=== PATIENT | male | born 1940 | race Caucasian/White ===

== ENCOUNTER 2017-04-11 05:50 | Inpatient (IN) | payer MEDICARE, MEDICAID ==
[~2017-04-11] VITALS: Ht 182.9 cm; Wt 65.6 kg
[~2017-04-11 05:50] MED LIST: AGGR20025 PO; ALUM5LIQ PO; GABA300 PO; GUAI600 PO; LEVA750T PO; LISI10 PO; NICO21T T-DERMAL; OMEG100037; OXYC1SOL5 PO; RANI150 PO; SIMV20 PO; SUPETAB30 PERC
[2017-04-11] MEDS ORDERED: SODIUM CHLORIDE 0.9% FLUSH 10 ML FLUSH IVF PRN (06:00)
[2017-04-11 06:02] VITALS: BP 135/60; PULSE 67; RESP 20; TEMP 98.1; O2SAT 89
[2017-04-11 06:09] LABS: AUTOMATED NEUTROPHIL # 4.9 TH/MM3 (1.8-7.7); BASOPHIL # 0.1 TH/MM3 (0-0.2); BASOPHIL % 0.9 % (0.0-2.0); EOSINOPHIL # 0.5 TH/MM3 (0-0.4); EOSINOPHIL % 6.5 % (0.0-4.0); HEMO FLAGS DIFF FINAL; LYMPH % 19.9 % (9.0-44.0); LYMPHOCYTE # 1.5 TH/MM3 (1.0-4.8); MEAN CELL VOLUME 92.9 FL (80.0-100.0); MEAN CORPUSCULAR HEMOGLOBIN 30.9 PG (27.0-34.0); MEAN CORPUSCULAR HGB CONC 33.3 % (32.0-36.0); MONO % 6.9 % (0.0-8.0); NEUT % 65.8 % (16.0-70.0); PLATELET COUNT 167 TH/MM3 (150-450); RED BLOOD COUNT 4.09 MIL/MM3 (4.50-5.90); RED CELL DISTRIBUTION WIDTH 14.1 % (11.6-17.2); WHITE BLOOD COUNT 7.5 TH/MM3 (4.0-11.0)
[2017-04-11 06:10] VITALS: O2SAT 91
[2017-04-11 06:11] VITALS: BP 145/74; PULSE 59; RESP 18; O2SAT 92
[2017-04-11 06:18] LABS: APTT (PATIENT) 25.9 SEC (24.3-30.1); PROTHROMBIN TIME - PATIENT 11.4 SEC (9.8-11.6)
[2017-04-11] MEDS ORDERED: AGGR20025 PO (06:27)
[2017-04-11 06:34] LABS: BICARBONATE 34.1 MEQ/L (21.0-32.0); POTASSIUM 4.3 MEQ/L (3.5-5.1)
[2017-04-11] MEDS ORDERED: LORA-474 PO (06:36)
[2017-04-11] MEDS ORDERED: FISHCAP4 PO (06:37)
[2017-04-11] MEDS ORDERED: TAMS5CAP PO (06:37)
--- NOTE | 2017-04-11 06:37 | RADRPT ---
EXAM DATE/TIME: 04/11/2017 06:02 [facility] COMPARISON: No previous studies available for comparison. INDICATIONS : Trauma, fall. RADIATION DOSE: 21.52 CTDIvol (mGy) MEDICAL HISTORY : Cerebrovascular disease. Hypertension. SURGICAL HISTORY : None. ENCOUNTER: Initial ACUITY: 1 day PAIN SCALE: 0/10 LOCATION: neck TECHNIQUE: Volumetric scanning of the cervical spine was performed. Multiplanar reconstructions in the sagittal, coronal and oblique axial planes were performed. Using automated exposure control and adjustment o f the mA and/or kV according to patient size, radiation dose was kept as low as reasonably achievable to obtain optimal diagnostic quality images. DICOM format image data is available electronically f or review and comparison. FINDINGS: VERTEBRAE: Normal vertebral body height. ALIGNMENT: Minimal anterolisthesis C3 on C4. C2-C3: The bony spinal canal is normal in size. No evidence of disc bulge or herniation. The neural forami na are bilaterally patent. C3-C4: The bony spinal canal is normal in size. No evidence of disc bulge or herniation. The neural forami na are bilaterally patent. C4-C5: The bony spinal canal is normal in size. No evidence of disc bulge or herniation. The neural forami na are bilaterally patent. C5-C6: The bony spinal canal is normal in size. No evidence of disc bulge or herniation. The neural forami na are bilaterally patent. C6-C7: The bony spinal canal is normal in size. No evidence of disc bulge or herniation. The neural forami na are bilaterally patent. C7-T1: The bony spinal canal is normal in size. No evidence of disc bulge or herniation. The neural forami na are bilaterally patent. CONCLUSION: 1. Minimal anterolisthesis C3 on C4. 2. No fracture. Chan Delgadillo MD on April 11, 2017 at 6:34 Board Certified Radiologist. This report was verified electronically.
[2017-04-11] MEDS ORDERED: LISI10TA3 PO (06:38)
[2017-04-11] MEDS ORDERED: GABA400C5 PO (06:38)
[2017-04-11] MEDS ORDERED: THERM PO (06:39)
[2017-04-11] MEDS ORDERED: OCUVTAB PO (06:39)
[2017-04-11] MEDS ORDERED: OXYB5TAB10 PO (06:39)
--- NOTE | 2017-04-11 06:39 | PD ---
HPI Chief Complaint: Fall Time Seen by Provider: 05:53 Travel History International Travel<30 days: No Contact w/Intl Traveler<30days: No Traveled to known affect area: No History of Present Illness HPI Patient is a 77-year-old male with a history of strokes in the past presents the emergency department for evaluation after a fall. Patient is on Aggrenox. According to EMS the patient fell out of bed and hit the right side of his for head [facility] According EMS the patient was a little bit more responsive when they first started here and then gradually became more groggy. Is unclear what time he was last seen normal. The patient is a GCS of 14 currently and unable to provide most of his history. Does have a contusion to the right side of his forehead. Mild facial droop on the left. Multiple attempts were made to contact the [facility] without success. PFSH Past Medical History Hx Anticoagulant Therapy: Yes (aggrenox) Depression: Yes Chest Pain: Yes COPD: Yes Cerebrovascular Accident: Yes (CVA) Diminished Hearing: No Gastrointestinal Disorders: Yes (SMALL BOWEL OBSTRUCTION) GERD: Yes Hypertension: Yes Psychiatric: Yes Tetanus Vaccination: Unknown Influenza Vaccination: No Past Surgical History Abdominal Surgery: Yes (ULCER SURGERY) Other Surgery: Yes Social History Alcohol Use: No Tobacco Use: Yes (10 CIG DAY) Substance Use: No Allergies-Medications (Allergen,Severity, Reaction): Coded Allergies: No Known Allergies (Verified , 09/20/16) Reported Meds & Prescriptions Reported Meds & Active Scripts Active Reported Vitamin D3 (Cholecalciferol) 5,000 Unit Cap 5,000 Units PO DAILY Simvastatin 20 Mg Tab 20 Mg PO DAILY Ranitidine (Ranitidine HCl) 150 Mg Cap 75 Mg PO BID Percocet (Oxycodone-Acetaminophen) 5-325 mg Tab 1 Tab PO Q6H PRN Ditropan (Oxybutynin Chloride) 5 Mg Tab 5 Mg PO Q12HR Ocuvite (Multiple Vitamins W/ Minerals) 1 Tab 1 Tab PO DAILY Thera M Plus (Multivitamins/Minerals Therapeutic) 1 Tab 1 Tab PO DAILY Lisinopril 10 Mg Tab 10 Mg PO DAILY Gabapentin 400 Mg Cap 400 Cap PO HS Flomax (Tamsulosin HCl) 0.4 Mg Cap 0.4 Mg PO HS Fish Oil + D3 (Fish Oil-Cholecalciferol) 1,200-1,000 Mg-Unit Cap 1 Cap PO DAILY Ativan (Lorazepam) 1 Mg Tab 1 Mg PO Q4H PRN Aggrenox (Dipyridamole/Aspirin) 200-25 Mg Cap 1 Cap PO BID Review of Systems ROS Limitations: Altered Mental Status Physical Exam Narrative GENERAL: Well-developed well-nourished no apparent distress. SKIN: Contusion to the right forehead. No other bruises or lacerations seen on his person. HEAD: No liao signs no raccoons eyes. Normocephalic. EYES: Pupils equal and round and reactive to light.. No scleral icterus. No injection or drainage. Favors a right sided gaze. Very reluctant to follow extraocular movements. ENT: No nasal bleeding or discharge. Mucous membranes pink and moist. NECK: Trachea midline. No JVD. CARDIOVASCULAR: Regular rate and rhythm. No murmur appreciated. RESPIRATORY: No accessory muscle use. Clear to auscultation. Breath sounds equal bilaterally. GASTROINTESTINAL: Abdomen soft, non-tender, nondistended. Hepatic and splenic margins not palpable. MUSCULOSKELETAL: No obvious deformities. No clubbing. No cyanosis. No edema. NEUROLOGICAL: Awake and alert. There is a very subtle asymmetry to the face with a left sided facial droop. Patient is able to smile intensely and his smile is even. As above he does favor a slight right-sided gaze. Otherwise his cranial nerves are intact. PSYCHIATRIC: Alert and awake. Confused. Data Data Last Documented VS Vital Signs Date Time Temp Pulse Resp B/P Pulse Ox O2 Delivery O2 Flow Rate FiO2 04/11/17 06:11 59 18 145/74 92 Nasal Cannula 4 04/11/17 06:[address] Brain W/O Iv Contrast(Rout) (04/11/17 ) Ct Cerv Spine W/O Contrast (04/11/17 ) Electrocardiogram (04/11/17 05:53) Basic Metabolic Panel (Bmp) (04/11/17 05:53) Complete Blood Count With Diff (04/11/17 05:53) Magnesium (Mg) (04/11/17 05:53) Prothrombin Time / Inr (Pt) (04/11/17 05:53) Act Partial Throm Time (Ptt) (04/11/17 05:53) Ecg Monitoring (04/11/17 05:53) Iv Access Insert/Monitor (04/11/17 05:53) Oximetry (04/11/17 05:53) Oxygen Administration (04/11/17 05:53) Sodium Chloride 0.9% Flush (Ns Flush) (04/11/17 06:00) Admit Order (Ed Use Only) (04/11/17 ) Labs Laboratory Tests Test 04/11/17 05:58 White Blood Count 7.5 TH/MM3 Red Blood Count 4.09 MIL/MM3 Hemoglobin 12.7 GM/DL Hematocrit 38.0 % Mean Corpuscular Volume 92.9 FL Mean Corpuscular Hemoglobin 30.9 PG Mean Corpuscular Hemoglobin 33.3 % Concent Red Cell Distribution Width 14.1 % Platelet Count 167 TH/MM3 Mean Platelet Volume 8.4 FL Neutrophils (%) (Auto) 65.8 % Lymphocytes (%) (Auto) 19.9 % Monocytes (%) (Auto) 6.9 % Eosinophils (%) (Auto) 6.5 % Basophils (%) (Auto) 0.9 % Neutrophils # (Auto) 4.9 TH/MM3 Lymphocytes # (Auto) 1.5 TH/MM3 Monocytes # (Auto) 0.5 TH/MM3 Eosinophils # (Auto) 0.5 TH/MM3 Basophils # (Auto) 0.1 TH/MM3 CBC Comment DIFF FINAL Differential Comment Prothrombin Time 11.4 SEC Prothromb Time International 1.0 RATIO Ratio Activated Partial 25.9 SEC Thromboplast Time Sodium Level 140 MEQ/L Potassium Level 4.3 MEQ/L Chloride Level 102 MEQ/L Carbon Dioxide Level 34.1 MEQ/L Anion Gap 4 MEQ/L Blood Urea Nitrogen 32 MG/DL Creatinine 1.47 MG/DL Estimat Glomerular Filtration 46 ML/MIN Rate Random Glucose 94 MG/DL Calcium Level 9.6 MG/DL Magnesium Level 2.0 MG/DL [facility] Medical Decision Making Medical Screen Exam Complete: Yes Emergency Medical Condition: Yes Interpretation(s) EKG shows normal sinus rhythm normal axis and normal R-wave progression. No concerning ST segment changes. Intervals within normal limits. This is a normal EKG. Differential Diagnosis Traumatic brain injury, intracranial hematoma, TIA, stroke, altered mental status. Narrative Course Patient was discussed with Dr. Christie who is on-call for neurology. I expressed my concerns I do not have a definitive timeline for this patient. EMS states that he is gradually worsening but they state that he has had a facial droop since they initially assessed him. It is possible this is baseline mental status. Review of her records he has not been here for neurologic complaint in the past and this finding has not been documented in the past. The patient was moved hastily to the CAT scanner where a non-con CT was reviewed by me and shows no obvious intracranial hematoma. Official reads are pending at this time. I'll be above was discussed with Dr. Christie who recommends calling the [facility] to possibly clarify the timeline, I have attempted multiple times to call [facility] and there is no voicemail on the phone continues to ring. Unfortunately there is no one at the bedside who can cooperate different timeline. It is possible that the patient awoke after having a stroke in his sleep and now has E symptoms and that is why he fell, it is possible the trauma has caused him to have a neurologic dysfunction, it is also possible that this is his baseline neurologic status. Baseline labs to been ordered. Last [address] 04/11/17 0000 Signed Impressions: Service Date/Time: April 06:02 - CONCLUSION: 1. Old infarcts. 2. No acute intracranial abnormality. Chan Delgadillo MD Cervical Spine CT 04/11/17 0000 Signed Impressions: Service Date/Time: , April 11, 2017 06:02 - CONCLUSION: 1. Minimal anterolisthesis C3 on C4. 2. No fracture. Chan Delgadillo MD Patient incidentally did have some mild hypoxia in the emergency department, he is normally [facility] 2 L [facility] the [facility], is placed on 4 L oxygen sat 92 %. Diagnosis Primary Impression: Closed head injury Additional Impressions: TIA (transient ischemic attack) Hypoxia Admitting Information Admitting Physician Requests: Observation Condition: Stable Joe Rapp MD Apr 11, 2017 06:39
--- NOTE | 2017-04-11 06:39 | RADRPT ---
EXAM DATE/TIME: 04/11/2017 06:02 [facility] COMPARISON: CT BRAIN W/O CONTRAST, September 20, 2016, 8:46. INDICATIONS : Altered mental status and slurred speech post fall. Abrasion to right forehead. RADIATION DOSE: 38.21 CTDIvol (mGy) MEDICAL HISTORY : Cerebrovascular disease. Hypertension. SURGICAL HISTORY : None. ENCOUNTER: Initial ACUITY: 1 day PAIN SCALE: 0/10 LOCATION: cranial TECHNIQUE: Multiple contiguous axial images were obtained of the head. Using automated exposure control and adj ustment of the mA and/or kV according to patient size, radiation dose was kept as low as reasonably a chievable to obtain optimal diagnostic quality images. DICOM format image data is available electro nically for review and comparison. FINDINGS: CEREBRUM: Remote infarcts in the left cerebellum and both occipital lobes. Lacunar infarct in the left thalamus also seen. The ventricles are normal for age. No evidence of midline shift, mass lesion, hemorrhage or acute infarction. No extra-axial fluid collections are seen. POSTERIOR FOSSA: The cerebellum and brainstem are intact. The 4th ventricle is midline. The cerebellopontine angle i s unremarkable. EXTRACRANIAL: The visualized portion of the orbits is intact. SKULL: The calvaria is intact. No evidence of skull fracture. CONCLUSION: 1. Old infarcts. 2. No acute intracranial abnormality. Chan Delgadillo MD on April 11, 2017 at 6:36 Board Certified Radiologist. This report was verified electronically.
[2017-04-11] MEDS ORDERED: RANI150C PO (06:40)
[2017-04-11] MEDS ORDERED: PERC5TAB12 PO (06:40)
[2017-04-11] MEDS ORDERED: SIMV20TA PO (06:41)
[2017-04-11] MEDS ORDERED: CHOL5000 PO (06:41)
[2017-04-11] MEDS ORDERED: GLUCAGON 1 MG/ML VIAL OTHER PRN (07:30)
[2017-04-11] MEDS ORDERED: DEXTROSE 50% IN WATER 50 ML VIAL(D50) IV PUSH PRN (07:30)
[2017-04-11] MEDS ORDERED: SODIUM CHLORIDE 0.9% FLUSH 5 ML FLUSH IV FLUSH PRN (07:30)
[2017-04-11] MEDS ORDERED: SODIUM CHLOR 0.9% 1000 ML INJ 1,000 ML IV SCH (08:00)
[2017-04-11 08:02] LABS: BLOOD GAS BASE EXCESS 7.9 mmol/L (-2-2); BLOOD GAS CARBOXYHEMOGLOBIN 8.1 % (0-4); BLOOD GAS HCO3 33 mmol/L (22-26); BLOOD GAS METHEMOGLOBIN 0.7 % (0-2); BLOOD GAS O2 HGB SATURATION 81 % (90-100); BLOOD GAS OXYGEN CONTENT 14.4 Vol % (12.0-20.0); BLOOD GAS PCO2 58 mmHg (38-42); BLOOD GAS PO2 52 mmHG (61-120); BLOOD GAS TOTAL HGB 12.6 G/DL (12.0-16.0); TEMP CORR TO 98.6
[2017-04-11 08:03] LABS: CRITICAL VALUE YES; DRAW SITE RT RADIAL; LITER FLOW 4 L/M; NUMBER OF ARTERIAL PUNCTURES 1; OXYGEN DEVICE NASAL CANNULA; STAT YES; ULNAR PULSE Y
--- NOTE | 2017-04-11 08:33 | MB ---
cc: GOLDEN MUKHERJEE M.D. DATE OF CONSULTATION: 04/11/2017 HISTORY OF PRESENT ILLNESS The patient lives at [facility] on the [address], with a history of depression, atypical chest pain, COPD, stroke, small bowel obstruction, hypertension, chronic pain, GERD. He takes Aggrenox. He fell out of bed this morning, hit his head on the right oxygen concentrator at the residential, initially more responsive then became groggy, contusion on the right forehead, thought to have a mild left facial droop, eyes deviated to the right. I was called by the ER. They called back to the residential but nobody would answer the phone. He was evidently seen last the night prior, so not a good TPA candidate. Nevertheless, his symptoms have improved, initially was not talking but now talking quite well. He does tell me he has a history of stroke and vision problems. He also has macular degeneration. REVIEW OF SYSTEMS He denied any hypertension, diabetes, hypercholesterolemia, MD, atrial fibrillation, Coumadin, renal, hepatic or pulmonary disease, thyroid disease, lupus, ulcer, cancer, seizure. SOCIAL HISTORY He is a smoker, not a drinker, lives at the residential. FAMILY HISTORY Negative for cancer, seizure, stroke. MEDICATIONS At the residential: 1. Simvastatin. 2. Vitamin D. 3. Ranitidine. 4. Percocet. 5. Ditropan. 6. Ocuvite. 7. Multivitamin. 8. Lisinopril. 9. Gabapentin 400 at bedtime. 10. Flomax. 11. Fish oil. 12. Ativan 1 mg q.4 hours p.r.n. 13. Aggrenox. PHYSICAL EXAMINATION VITAL SIGNS: On exam he has been sinus rhythm. 145/74, 18, 59. NECK: There were no carotid bruits. HEART: Regular rhythm. I do not detect a murmur. Pupils are equal. He appears to have a left homonymous hemianopsia. He does refer a right gaze preference but he can go to the left. Face is symmetric at this time. Tongue was midline. He had some weakness about a 4+ to 5-/5 strength in the left upper extremity, normal strength in bilateral lower extremities and right upper extremity. Toes downgoing bilaterally. DTRs are trace. He felt discomfort throughout. He is awake and alert. He thought it was March 2016. He knows he lives in the [facility]. His speech is fluent. He is not aphasic. LABORATORY DATA CBC is essentially normal. Basic metabolic profile creatinine 1.47, otherwise essentially normal. GFR is 46. In the past he has had significant hypoxia with blood gases. IMAGING STUDIES He had a cervical spine CAT scan this morning, showed no fracture, minimal anterolisthesis C3 on 4. He had a CAT scan of the brain that showed old strokes this morning only compared to September 2016. Nothing new was noted. Review of the films, there is a large left occipital infarct and a large right occipital infarct and also a fairly large-size left occipital infarct, third ventricle is somewhat prominent as are the other ventricles, there are possible smaller infarcts cortically, hard to say. IMPRESSION Possible seizure this morning, it is unclear. Will check an EEG. Check an MRI of the brain, MRA [id number]. Looks like he probably had top of the basilar infarct in the past. Check an MRA of the neck and [id number], echocardiogram. Considering his strokes consider Coumadin. Check a Holter on him also, some additional blood work and ABG. For now it is okay to continue him on his Aggrenox. MD MARY Arrieta/AMADOR /7:46 AM /8:08 AM
[2017-04-11] MEDS ORDERED: DIPYRIDAMOLE/ASPIRIN 200 MG/25 MG CAP PO SCH (09:00)
[2017-04-11] MEDS: SODIUM CHLORIDE 0.9% FLUSH 5 ML FLUSH IV FLUSH SCH ×2 (09:48→21:00)
[2017-04-11] MEDS: FAMOTIDINE 20 MG TAB PO SCH ×2 (09:49→21:28)
[2017-04-11] MEDS: DIPYRIDAMOLE/ASPIRIN 200 MG/25 MG CAP PO SCH ×2 (09:49→21:28)
[2017-04-11] MEDS: PRAVASTATIN SOD 40 MG TAB PO SCH (09:49)
[2017-04-11] MEDS ORDERED: GADODIAMIDE PF 287 MG/ML 20 ML VIAL (for RAD MRI) IV ONE (11:00)
[2017-04-11] MEDS: INSULIN ASPART SUPPLEMENTAL SCALE SQ SCH ×3 (11:09→21:00)
[2017-04-11 11:28] LABS: FREE T4 1.04 NG/DL (0.76-1.46)
[2017-04-11 11:29] LABS: HEMOGLOBIN A1a 0.8 %; HEMOGLOBIN A1b 2.1 %; HEMOGLOBIN Ao 83.2 %; HEMOGLOBIN LA1C 2.5 %; HEMOGLOBIN P3 6.2 %
[2017-04-11 12:29] VITALS: BP 158/72; PULSE 60; RESP 18; TEMP 98.2; O2SAT 95
--- NOTE | 2017-04-11 13:02 | RADRPT ---
EXAM DATE/TIME: 04/11/2017 08:52 [facility] COMPARISON: No previous studies available for comparison. INDICATIONS : Patient fell out of bed and hit the right side of his for head. MEDICAL HISTORY : Hypertension. Gastroesophageal reflux disease. Chronic obstructive pulmonary disease. CVA SURGICAL HISTORY : Umbilical hernia repair. ENCOUNTER: Initial ACUITY: 1 day PAIN SCORE: 0/10 LOCATION: cranial Please note a normal MRA of the brain does not entirely exclude the possibility of a small aneurysm, nor the possibility of distal intracranial vessel disease. TECHNIQUE: 3D time of flight MRA was performed. Source images, multiplanar STS MIP, and 3D volume MIP reconstru ctions were reviewed. FINDINGS: Anterior circulation: There is excellent visualization of the major intracranial arteries out to the second-order branch ve ssels. There is no evidence for aneurysm, vessel truncation or stenosis, and no evidence for vascula r malformation. Posterior circulation: The distal right vertebral artery is not visualized. There is a very small caliber left vertebral art heena. The basilar artery is diffusely small in caliber. Posterior communicating arteries are patent bi laterally. No vessel truncation or aneurysm or vascular malformation. Visualized portions of the brain parenchyma demonstrate moderate diffuse cerebral atrophy with enceph alomalacic defects in the left cerebellum and occipital lobes bilaterally. CONCLUSION: 1. No evidence for large vessel occlusion, aneurysm, or vascular malformation involving the anterior situation. 2. Apparent occlusion of the distal right vertebral artery with small caliber left vertebral and smal l caliber basilar artery. The posterior communicating arteries are patent bilaterally. There is evide nce for prior left cerebellar infarct indicating chronicity. Tutu Sharma MD on April 11, 2017 at 12:51 Board Certified Radiologist. This report was verified electronically.
--- NOTE | 2017-04-11 13:15 | HHI.HP ---
HPI Service [facility] Primary Care Physician No Primary Care Physician Admission Diagnosis TIA vs Closed head injury. Diagnoses: (1) TIA (transient ischemic attack) (2) Closed head injury (3) Hypoxia Chief Complaint: Neuro deficits Travel History International Travel<30 Days: No Contact w/Intl Traveler <30 Da: No Traveled to Known Affected Are: No History of Present Illness 77-year-old male with prior history of CVA, hyperlipidemia was brought to the ED from a local nursing facility for evaluation of an acute onset of mid left facial droop along with eyes to be related to the right following a fall out of bed this morning as a result of which patient if he sits on the right oxygen concentrator. Her EMR, patient was more responsive then became groggy and was told to have a mid level facial droop along with eyes deviated to the right. He was immediately sent to the ED by EMS, however on arrival patient's symptoms seem to have resolved but neurology was consulted. Again per EMR, a call was placed at patient's nursing facility however no one was able to return phone calls and patient was deemed to be outside of the time zone for TPA therapy. Head CT was negative. During my exam patient appears to be stable. Review of Systems Except as stated in HPI: all other systems reviewed are Neg Past Family Social History Past Medical History Depression COPD CVA by history Diverticular disease Small bowel obstruction history GERD Hypertension Chronic Pain syndrome. Past Surgical History Abdominal surgery Reported Medications Vitamin D3 (Cholecalciferol) 5,000 Unit Cap 5,000 Units PO DAILY Simvastatin 20 Mg Tab 20 Mg PO DAILY Ranitidine (Ranitidine HCl) 150 Mg Cap 75 Mg PO BID Percocet (Oxycodone-Acetaminophen) 5-325 mg Tab 1 Tab PO Q6H PRN Ditropan (Oxybutynin Chloride) 5 Mg Tab 5 Mg PO Q12HR Ocuvite (Multiple Vitamins W/ Minerals) 1 Tab 1 Tab PO DAILY Thera M Plus (Multivitamins/Minerals Therapeutic) 1 Tab 1 Tab PO DAILY Lisinopril 10 Mg Tab 10 Mg PO DAILY Gabapentin 400 Mg Cap 400 Cap PO HS Flomax (Tamsulosin HCl) 0.4 Mg Cap 0.4 Mg PO HS Fish Oil + D3 (Fish Oil-Cholecalciferol) 1,200-1,000 Mg-Unit Cap 1 Cap PO DAILY Ativan (Lorazepam) 1 Mg Tab 1 Mg PO Q4H PRN Aggrenox (Dipyridamole/Aspirin) 200-25 Mg Cap 1 Cap PO BID Allergies: Coded Allergies: No Known Allergies (Verified , 09/20/16) Family History Not relevant for this case secondary to patient's age Social History Alcohol Use: No Tobacco Use: Yes (10 CIG DAY) Substance Use: No Physical Exam Vital Signs Vital Signs Date Time Temp Pulse Resp B/P Pulse Ox O2 Delivery O2 Flow Rate FiO2 04/11/17 12:29 98.2 60 18 158/72 95 04/11/17 06:11 59 18 145/74 92 Nasal Cannula 4 04/11/17 06:10 91 Nasal Cannula 4 04/11/17 06:10 91 Nasal Cannula 4 04/11/17 06:02 98.1 67 20 135/60 89 Physical Exam GENERAL: This is a well-nourished, well-developed patient, in no apparent distress. SKIN: No rashes, ecchymoses or lesions. Cool and dry. HEAD: Atraumatic. Normocephalic. No temporal or scalp tenderness. EYES: Pupils equal round and reactive. Extraocular motions intact. No scleral icterus. No injection or drainage. ENT: Nose without bleeding, purulent drainage or septal hematoma. Throat without erythema, tonsillar hypertrophy or exudate. Uvula midline. Airway patent. NECK: Trachea midline. No JVD or lymphadenopathy. Supple, nontender, no meningeal signs. CARDIOVASCULAR: Regular rate and rhythm without murmurs, gallops, or rubs. RESPIRATORY: Clear to auscultation. Breath sounds equal bilaterally. No wheezes , rales, or rhonchi. GASTROINTESTINAL: Abdomen soft, non-tender, nondistended. No hepato-splenomegaly , or palpable masses. No guarding. MUSCULOSKELETAL: Extremities without clubbing, cyanosis, or edema. No joint tenderness, effusion, or edema noted. No calf tenderness. Negative Homans sign bilaterally. NEUROLOGICAL: Awake and alert. Cranial nerves II through XII intact. Motor and sensory grossly within normal limits. Five out of 5 muscle strength in all muscle groups. Normal speech. Laboratory Laboratory Tests Test 04/11/17 04/11/17 04/11/17 04/11/17 05:58 07:55 10:18 10:23 White Blood Count 7.5 Red Blood Count 4.09 Hemoglobin 12.7 Hematocrit 38.0 Mean Corpuscular Volume 92.9 Mean Corpuscular Hemoglobin 30.9 Mean Corpuscular Hemoglobin 33.3 Concent Red Cell Distribution Width 14.1 Platelet Count 167 Mean Platelet Volume 8.4 Neutrophils (%) (Auto) 65.8 Lymphocytes (%) (Auto) 19.9 Monocytes (%) (Auto) 6.9 Eosinophils (%) (Auto) 6.5 Basophils (%) (Auto) 0.9 Neutrophils # (Auto) 4.9 Lymphocytes # (Auto) 1.5 Monocytes # (Auto) 0.5 Eosinophils # (Auto) 0.5 Basophils # (Auto) 0.1 CBC Comment DIFF FINAL Differential Comment Prothrombin Time 11.4 Prothromb Time International 1.0 Ratio Activated Partial 25.9 Thromboplast Time Sodium Level 140 Potassium Level 4.3 Chloride Level 102 Carbon Dioxide Level 34.1 Anion Gap 4 Blood Urea Nitrogen 32 Creatinine 1.47 Estimat Glomerular Filtration 46 Rate Random Glucose 94 Hemoglobin A1c 6.1 Calcium Level 9.6 Magnesium Level 2.0 Blood Gas Puncture Site RT RADIAL Blood Gas Patient Temperature 98.6 Blood Gas HCO3 33 Blood Gas Base Excess 7.9 Blood Gas Oxygen Saturation 81 Arterial Blood pH 7.38 Arterial Blood Partial 58 Pressure CO2 Arterial Blood Partial 52 Pressure O2 Arterial Blood Oxygen Content 14.4 Arterial Blood 8.1 Carboxyhemoglobin Arterial Blood Methemoglobin 0.7 Blood Gas Hemoglobin 12.6 Oxygen Delivery Device NASAL CANNULA Blood Gas Liter Flow 4 Erythrocyte Sedimentation Rate 18 Aspartate Amino Transf 12 (AST/SGOT) Alanine Aminotransferase 12 (ALT/SGPT) Total Creatine Kinase 85 Troponin I 0.08 Vitamin B12 Level 382 Free Thyroxine 1.04 Thyroid Stimulating Hormone 0.738 3rd Gen Result Diagram: 04/11/17 0558 04/11/17 0558 Imaging Last Impressions Head Magnetic Resonance Angiography 04/11/17 0000 Signed Impressions: Service Date/Time: April 08:52 - CONCLUSION: 1. No evidence for large vessel occlusion, aneurysm, or vascular malformation involving the anterior situation. 2. Apparent occlusion of the distal right vertebral artery with small caliber left vertebral and small caliber basilar artery. The posterior communicating arteries are patent bilaterally. There is evidence for prior left cerebellar infarct indicating chronicity. Tutu Sharma MD Head CT 04/11/17 0000 Signed Impressions: Service Date/Time: , April 11, 2017 06:02 - CONCLUSION: 1. Old infarcts. 2. No acute intracranial abnormality. Chan Delgadillo MD Cervical Spine CT 04/11/17 0000 Signed Impressions: Service Date/Time: , April 11, 2017 06:02 - CONCLUSION: 1. Minimal anterolisthesis C3 on C4. 2. No fracture. Chan Delgadillo MD Assessment and Plan Problem List: (1) TIA (transient ischemic attack) ICD Code: G45.9 Status: Acute (2) Closed head injury ICD Code: S09.90XA Status: Acute Assessment and Plan 77-year-old man with Closed head injury Head CT noted a review by me with no acute finding Transient ischemic attack -No TPA therapy initiated as patient's symptoms resolved -Continue with Aggrenox -Start statin therapy -NIHSS, Neuro checks, Monitor on telemetry -PT/OT/ST evaluations, -allow permissive HTN, IV Vasotec and IV labetalol if SBP >220 -Check lipid profile and HgbA1c -Check carotid U/S -Head CT 04/11/17 with evidence of old infarcts Check brain MRI/MRA -Check echocardiogram and place Holter monitoring -Neurology consultation pending -Consider EEG DVT prophylaxis Bilateral SCDs Code Status Full code Discussed Condition With Patient, ED physician Chan Suero MD Apr 11, 2017 13:15
--- NOTE | 2017-04-11 13:40 | RADRPT ---
EXAM DATE/TIME: 04/11/2017 08:52 [facility] COMPARISON: CT BRAIN W/O CONTRAST, April 11, 2017, 6:02. INDICATIONS : Patient fell out of bed and hit the right side of his for head. CONTRAST: 20 cc Omniscan (gadodiamide) IV MEDICAL HISTORY : Hypertension. Gastroesophageal reflux disease. Chronic obstructive pulmonary disease. CVA SURGICAL HISTORY : Umbilical hernia repair. ENCOUNTER: Initial ACUITY: 1 day PAIN SCORE: 0/10 LOCATION: cranial TECHNIQUE: Multiplanar, multisequence MRI of the brain was performed both prior to and following the administrat ion of paramagnetic contrast. FINDINGS: CEREBRUM: There is bilateral cortical atrophy. There is evidence of previous old infarcts involving the occipit al lobes bilaterally, right greater than left. There is an old infarct involving the left found this. There is a tiny old infarct in the left insula. The ventricles are normal in size for patient's age. No mass effect or midline shift is seen. No definite acute intracranial hemorrhage is demonstrated. No acute infarction is demonstrated. WHITE MATTER: Chronic white matter changes are noted bilaterally. POSTERIOR FOSSA: There is evidence of an old infarct involving the left cerebellar hemisphere. The fourth ventricle is normal in size and midline in position. The midbrain is grossly unremarkable. DIFFUSION IMAGING: No focal areas of restricted diffusion are seen. No evidence of acute infarction. EXTRACRANIAL: The visualized portions of the orbits and paranasal sinuses are unremarkable. POST-CONTRAST: No abnormal areas of parenchymal or dural enhancement. No evidence of blood-brain barrier breakdown. CONCLUSION: 1. Diffuse bilateral cortical atrophy and chronic white matter changes. 2. Multiple areas of old infarction are demonstrated and described above. These findings are stable c ompared to the prior CT scan of the brain. Brad Alston MD on April 11, 2017 at 13:33 Board Certified Radiologist. This report was verified electronically.
--- NOTE | 2017-04-11 14:07 | RADRPT ---
EXAM DATE/TIME: 04/11/2017 08:52 [facility] COMPARISON: MRA BRAIN W/O CONTRAST, April 11, 2017, 8:52. INDICATIONS : Patient fell out of bed and hit the right side of his for head. CONTRAST: 20 cc Omniscan (gadodiamide) IV MEDICAL HISTORY : Hypertension. Gastroesophageal reflux disease. Chronic obstructive pulmonary disease. CVA SURGICAL HISTORY : Umbilical hernia repair. ENCOUNTER: Initial ACUITY: 1 day PAIN SCORE: 0/10 LOCATION: cranial Percent stenosis is calculated using the diameter of the stenotic region over the diameter of the nor mal distal internal carotid artery. TECHNIQUE: Bolus infused MRA of the extracranial circulation was performed using a neurovascular coil. Post pro cessing was performed including rotating subvolume maximum intensity projections of each carotid alex ry, rotating full volume maximum intensity projections of both carotid arteries, sagittal and coronal sliding thin slab reformations of each carotid artery, and left oblique sliding thin slab reformatio n through the aortic arch to include the origin of the arch branch vessels. FINDINGS: AORTIC ARCH: There is a linear shadow paralleling the vessel lumen of the proximal left common carotid artery with appearance somewhat worrisome for intimal dissection. This could certainly be artifactual as well. T his does not continue into the vessel beyond the low neck region. There is mild ostial stenosis invol ving the left subclavian artery origin. Classical three-vessel anatomy is present. RIGHT CAROTID: Is mild atherosclerotic plaquing with shallow plaque ulceration at the right carotid bifurcation. Min imal associated stenotic narrowing at the ICA origin. Beyond this proximal disease, the right ICA is widely patent to the skull base. LEFT CAROTID: Mild eccentric plaquing involving the proximal left ICA without significant associated stenotic narro wing. VERTEBRALS: The right vertebral artery is relatively small with suspected proximal stenosis. The left vertebral a rtery is small and discontinuous. CONCLUSION: Appearance worrisome for a possible intimal dissection involving the proximal left common carotid art heena. Mild disease without significant stenosis at the carotid bifurcations bilaterally. Tenuous vertebral circulation as described. Further evaluation with CTA examination of the arch and carotids would be suggested. Murray Perrin MD on April 11, 2017 at 13:55 Board Certified Radiologist. This report was verified electronically.
[2017-04-11 14:37] LABS: BACTERIA, URINE RARE /hpf; BLOOD, URINE NEG (NEG); COMMENT (UR) CULT NOT INDICATED; CULTURE IF INDICATED CULT NOT INDICATED; GLUCOSE,URINE NEG (NEG); KETONE, URINE NEG (NEG); NITRITE,URINE NEG (NEG); PH, URINE 7.5 (5.0-8.5); URINE COLOR YELLOW (YELLW/STRAW)
[2017-04-11 15:29] VITALS: BP 147/71; PULSE 55; RESP 16; TEMP 97.6; O2SAT 96
--- NOTE | 2017-04-11 16:25 | MG ---
cc: LESLEY DENTON M.D. Lab No: [id number] Date: 04/11/2017 Age: 77 Sex: M Race: DATE OF : [address] Christie Room E57. Hyperventilation was not done, only photic stimulation. Awake, drowsy, asleep study. CT showed old infarcts. Admitted with a fall out of bed, hit the right side of his head. He has a history of stroke, COPD, hypertension, SBO, depression, on anticoagulation per chart. MEDICATION Current medicines are showing insulin, aspirin, Pravachol. DESCRIPTION OF RECORD There is a background rhythm of 6 Hz, at times between 5 and 6 Hz. EKG is all artifactual, a lot of muscle artifact but overall theta slowing noted. Photic stimulation does elicit a driving response. IMPRESSION Mild background slowing, may be due to sedation versus medication effect. No epileptic activity. Clinical correlation. MD OLIVIA Tao/AMADOR /2:57 PM /4:09 PM
--- NOTE | 2017-04-11 18:13 | EKG ---
Date Performed: 04/11/2017 Time Performed: 06:13:18 PTAGE: 77 years EKG: Sinus rhythm NORMAL ECG PREVIOUS TRACING 06/09/2015 @ 09.03 Compared to prior tracing no significant change DOCTOR: Natalie Morgan Interpretating Date/Time 04/11/2017 18:11:22
[2017-04-11 20:04] VITALS: BP 175/77; PULSE 56; RESP 18; TEMP 97.8; O2SAT 98
[2017-04-11] MEDS: SODIUM CHLOR 0.9% 1000 ML INJ 1,000 ML IV SCH (21:29)
[2017-04-12] VITALS (11 sets, daily range): BP systolic 145–176; BP diastolic 70–85; PULSE 61–82; RESP 15–18; TEMP 97.8–98.8; O2SAT 91–95
[2017-04-12] MEDS: INSULIN ASPART SUPPLEMENTAL SCALE SQ SCH ×4 (06:12→21:00)
[2017-04-12 07:14] LABS: HDL CHOLESTEROL 30.4 MG/DL (40.0-60.0); LDL CHOLESTEROL 68 MG/DL (0-99)
--- NOTE | 2017-04-12 07:14 | HHI.PR ---
Subjective Remarks sr Objective Vital Signs Date Time Temp Pulse Resp B/P Pulse Ox O2 Delivery O2 Flow Rate FiO2 04/12/17 06:03 98.2 61 18 170/76 95 04/12/17 04:48 94 04/12/17 04:21 98.8 71 18 167/75 91 04/12/17 04:03 64 04/12/17 02:02 62 04/12/17 00:24 98.4 61 18 148/70 91 04/11/17 20:04 97.8 56 18 175/77 98 04/11/17 15:29 97.6 55 16 147/71 96 04/11/17 12:29 98.2 60 18 158/72 95 I/O 04/11/17 04/11/17 04/11/17 04/12/17 04/12/17 04/12/17 07:00 15:00 23:00 07:00 15:00 23:00 Intake Total 240 ml Balance 240 ml Intake Oral 240 ml # Voids 1 Result Diagram: 04/11/17 0558 04/11/17 0558 Objective Remarks awkens and follows some commands just out of sleep prefers r gaze and can only see shadows he says moves all four ext ok 2015 Assessment and Plan Assessment and Plan imp eeg neg no new cva bilat old occipital and cbllr cva no new cva creat 1.47 yes mra cow pcomms strong bilat vb small throughout echo and holter pend plan is to check cta neck for unlikely dissection if creat looks better this am after ivf overnoc he is on statin if echo looks bad could consider coumadin o/w if nl can dc on agx if cta ok if ldl up adjust statin dose i can fu o/p the holter i think he does better when awake awhile adn worse when just wakes up Marv Christie MD Apr 12, 2017 07:14
[2017-04-12 08:04] LABS: BICARBONATE 30.8 MEQ/L (21.0-32.0); POTASSIUM 4.3 MEQ/L (3.5-5.1)
[2017-04-12] MEDS: SODIUM CHLORIDE 0.9% FLUSH 5 ML FLUSH IV FLUSH SCH ×2 (08:30→21:00)
[2017-04-12] MEDS: DIPYRIDAMOLE/ASPIRIN 200 MG/25 MG CAP PO SCH ×2 (08:32→21:25)
[2017-04-12] MEDS: PRAVASTATIN SOD 40 MG TAB PO SCH (08:32)
[2017-04-12] MEDS: FAMOTIDINE 20 MG TAB PO SCH ×2 (08:33→21:25)
[2017-04-12] MEDS: SODIUM CHLOR 0.9% 1000 ML INJ 1,000 ML IV SCH (10:20)
[2017-04-12 10:23] LABS: RAPID PLASMA REAGIN SCREEN NON-REACTIVE (NON-REACTVE)
--- NOTE | 2017-04-12 10:26 | HHI.PR ---
Subjective Remarks Follow up for TIA. The patient is seen resting in bed, awake, alert, oriented to self and hospital. He has no complaints. Denies any headache, lightheadedness , dizziness, unilateral numbness/weakness, chest pain, palpitations, shortness of breath, or abdominal complaints. Objective Vitals Vital Signs Date Time Temp Pulse Resp B/P Pulse Ox O2 Delivery O2 Flow Rate FiO2 04/12/17 08:41 97.9 63 15 170/75 95 04/12/17 06:03 98.2 61 18 170/76 95 04/12/17 04:48 94 04/12/17 04:21 98.8 71 18 167/75 91 04/12/17 04:03 64 04/12/17 02:02 62 04/12/17 00:24 98.4 61 18 148/70 91 04/11/17 20:04 97.8 56 18 175/77 98 04/11/17 15:29 97.6 55 16 147/71 96 04/11/17 12:29 98.2 60 18 158/72 95 I/O 04/11/17 04/11/17 04/11/17 04/12/17 04/12/17 04/12/17 07:00 15:00 23:00 07:00 15:00 23:00 Intake Total 240 ml Balance 240 ml Intake Oral 240 ml # Voids 1 Result Diagram: 04/11/17 0558 04/12/17 0612 Imaging Last Impressions Neck Magnetic Resonance Angiography 04/11/17 0745 Signed Impressions: Service Date/Time: April 08:52 - CONCLUSION: Appearance worrisome for a possible intimal dissection involving the proximal left common carotid artery. Mild disease without significant stenosis at the carotid bifurcations bilaterally. Tenuous vertebral circulation as described. Further evaluation with CTA examination of the arch and carotids would be suggested. Murray Perrin MD Brain MRI 04/11/17 0745 Signed Impressions: Service Date/Time: April 08:52 - CONCLUSION: 1. Diffuse bilateral cortical atrophy and chronic white matter changes. 2. Multiple areas of old infarction are demonstrated and described above. These findings are stable compared to the prior CT scan of the brain. Brad Alston MD Head Magnetic Resonance Angiography 04/11/17 0000 Signed Impressions: Service Date/Time: April 08:52 - CONCLUSION: 1. No evidence for large vessel occlusion, aneurysm, or vascular malformation involving the anterior situation. 2. Apparent occlusion of the distal right vertebral artery with small caliber left vertebral and small caliber basilar artery. The posterior communicating arteries are patent bilaterally. There is evidence for prior left cerebellar infarct indicating chronicity. Tutu Sharma MD Head CT 04/11/17 0000 Signed Impressions: Service Date/Time: , April 11, 2017 06:02 - CONCLUSION: 1. Old infarcts. 2. No acute intracranial abnormality. Chan Delgadillo MD Cervical Spine CT 04/11/17 0000 Signed Impressions: Service Date/Time: , April 11, 2017 06:02 - CONCLUSION: 1. Minimal anterolisthesis C3 on C4. 2. No fracture. Chan Delgadillo MD Objective Remarks GENERAL: Well-nourished, well-developed elderly male patient in [facility]. SKIN: Warm and dry. No rash. HEENT: Normocephalic. Frontal head contusion. Pupils equal and round. Mucous membranes pink and moist. NECK: Supple. Trachea midline. CARDIOVASCULAR: Regular rate and rhythm. S1, S2 noted. No murmur appreciated. RESPIRATORY: No accessory muscle use. Clear to auscultation. Breath sounds equal bilaterally. GASTROINTESTINAL: Abdomen soft, non-tender, nondistended. Normoactive bowel sounds x4. MUSCULOSKELETAL: No obvious deformities. Extremities without clubbing, cyanosis , or edema. NEUROLOGICAL: Awake and alert. No obvious cranial nerve deficits. Motor grossly within normal limits. 5/5 muscle strength in bilateral upper and lower extremities. Normal speech. PSYCHIATRIC: Appropriate mood and affect; insight and judgment limited. Medications and IVs Current Medications Medications (Trade) Dose Ordered Sig/Paulo Route Start Time Stop Time Status Last Admin (NS Flush) 2 ml BID IV FLUSH 04/11/17 09:00 04/11/17 21:00 (NS Flush) 2 ml UNSCH PRN IV FLUSH 04/11/17 07:30 (NovoLOG SUPPLEMENTAL SCALE) 1 ACHS SQ 04/11/17 11:00 (D50w (Vial) Inj) 50 ml UNSCH PRN IV PUSH 04/11/17 07:30 (Glucagon Inj) 1 mg UNSCH PRN OTHER 04/11/17 07:30 (Aggrenox 200-25 Mg) 1 cap BID PO 04/11/17 09:00 04/12/17 08:32 (Pepcid) 10 mg BID PO 04/11/17 09:00 04/12/17 08:33 Pravastatin Sodium 40 mg 40 mg DAILY PO 04/11/17 09:00 04/12/17 08:32 (NS 1000 ml Inj) 1,000 ml @ 75 mls/hr [id number] IV 04/11/17 21:00 04/11/17 21:29 A/P Problem List: (1) TIA (transient ischemic attack) ICD Code: G45.9 Status: Acute (2) Closed head injury ICD Code: S09.90XA Status: Acute Assessment and Plan 77-year-old male from [facility] with history of CVA, HLD, HTN, COPD, chronic pain, depression, presents after a fall with possible facial droop, concern for TIA/CVA Closed head injury: secondary to fall from bed, reportedly hit head on oxygen tank -Head CT images reviewed, no acute findings Transient ischemic attack: with possible facial droop upon arrival, now resolved. No TPA therapy initiated as patient's symptoms resolved -Continue with Aggrenox and statin -NIHSS, Neuro checks, Monitor on telemetry (although patient repeatedly removed telemetry) -PT/OT/ST evaluations -allow permissive HTN, IV Vasotec and IV labetalol if SBP >220 -Lipid profile wnl and HgbA1c 6.1 -Head CT and Brain MRI images reviewed, evidence of old infarcts, no acute findings -Head MRA shows occlusion of distal right vertebral artery; otherwise unremarkable -Neck MRA shows possible intimal dissection proximal left common carotid artery; recommends neck CTA -Neck CTA ordered -EEG unremarkable -Check echocardiogram -Holter monitoring in place -Neurology consulted, appreciate recommendations, can d/c on aggrenox if echo and CTA neck ok DVT prophylaxis Bilateral SCDs Discharge Planning 0930hrs: Awaiting echo and neck CTA, likely discharge today if unremarkable. 1230hrs: RN reporting multiple episodes of watery diarrhea. Will check for C diff and stool cultures. Hold off on discharge. Also BP elevated, will restart patient's lisinopril. Tamiko Villatoro PA-C Apr 12, 2017 10:26
--- NOTE | 2017-04-12 13:47 | HM ---
Date Performed: 04/11/2017 Time Performed: 15:23:00 HOOKUP DATE: 04/11/17 03:23:00 PM Rachel ANALYSIS START TIME: 04/11/2017 3:28:00 PM ANALYSIS END TIME: 04/12/2017 7:55:50 AM PATIENT AGE: 77 PATIENT HEIGHT PATIENT WEIGHT DRUG LIST PATIENT DIAGNOSIS: TIA VS CLOSED HEAD INJURY TEST NARRATIVE: The patient's average heart rate was 64 BPM. No episodes of tachycardia wer e noted. Heart rates less than 50 BPM were noted 5% of the time. No pauses exceeding 2.0 seconds were noted. 72 ventricular ectopics, which represented < 1% of the total beat count, were noted. The highest ventricular ectopic frequency occurred from 06:00 PM to 07:00 PM Rachel. During this time 9 VE(s) occurred. Ventricular ectopics were observed as 70 isolated beat(s) and as 1 couplet(s). N o runs were noted. 34 supraventricular ectopics, which represented < 1% of the total beat count, were noted. The highest supraventricular ectopic frequency occurred from 08:00 PM to 09:00 PM Rachel. During this time 16 SVE(s) occurred. Multiple episodes of ST depression (defined as -1.0 mm or mo re) were noted in channel 1. The maximum depression of -2.9 mm occurred at 07:19:59 AM Fri. No epi sodes of ST depression (defined as -1.0 mm or more) were noted in channel 2. No episodes of ST depre ssion (defined as -1.0 mm or more) were noted in channel 3. NO DIARY MAINTAINED- PT REMOVED MONITOR- COMBATIVE TEST INTERPRETATION: Holter monitor demonstrates normal Sinus rhythm with rare PVC and rare PAC. Several PACs occurred in triplets and quadruplets. No sustained supraven tricular tachycardia was noted. No symptoms were recorded in the patient's diary. Signed by : Marv Sears
[2017-04-12 15:15] LABS: HEMOGLOBIN A1a 0.8 %; HEMOGLOBIN A1b 2.1 %; HEMOGLOBIN Ao 83.7 %; HEMOGLOBIN LA1C 2.3 %
[2017-04-12 15:51] LABS: ANA SCREEN NEG (NEG)
[2017-04-12] MEDS ORDERED: IOHEXOL 350 MG/ML 10 ML VIAL (for RAD DIAG) IV ONE (16:09)
--- NOTE | 2017-04-12 17:22 | RADRPT ---
EXAM DATE/TIME: 04/12/2017 15:59 [facility] COMPARISON: MRA CAROTIDS W CONTRAST, April 11, 2017, 8:52. INDICATIONS : Evaluate for dissection of left common carotid. IV CONTRAST: 70 cc Omnipaque 350 (iohexol) IV RADIATION DOSE: 28.37 CTDIvol (mGy) MEDICAL HISTORY : Chronic obstructive pulmonary disease. Hypertension. SURGICAL HISTORY : None. ENCOUNTER: Initial ACUITY: 1 day PAIN SCALE: Non-responsive LOCATION: Bilateral neck region. Elevated flow velocities and ICA/CCA ratios have been found to correlate with increased degrees of vessel stenosis, calculated as percentage of diameter relative to a normal segment of distal ICA/CCA. TECHNIQUE: Volumetric scanning was performed using a multirow detector CT scanner. The data was post processed with a variety of visualization algorithms including full-volume maximum intensity projection, multip lanar sliding thin-slab reformation, curved-planar reformation, and surface-rendering techniques. Us ing automated exposure control and adjustment of the mA and/or kV according to patient size, radiatio n dose was kept as low as reasonably achievable to obtain optimal diagnostic quality images. DICOM f ormat image data is available electronically for review and comparison. FINDINGS: Recent MRA examination is findings concerning for possible focal dissection of the proximal left comm on carotid artery. AORTIC ARCH: Standard 3 vessel arch anatomy. Moderate atherosclerotic calcifications in the aortic arch with invol vement of the large vessels. No significant stenosis of the brachiocephalic subclavian arteries. RIGHT CAROTID: Mild calcified plaque occlusion of the right common carotid artery. Scattered calcified plaque withou t significant flow-limiting stenosis in the common carotid artery. Normal configuration of the caroti d bulb with bulky calcified plaque in the bulb extending to the internal carotid origin. Resultant mi ld stenosis. The right internal carotid artery is otherwise patent. LEFT CAROTID: Left common carotid origin is heavily calcified with resultant moderate to severe focal stenosis. No evidence for dissection as questioned. Left common artery is otherwise patent with minimal scattered calcified plaque. There is a normal configuration with bulky calcified plaque extending from the dist al graft to the origin of the internal carotid artery. There is resultant mild to moderate stenosis o f the internal carotid origin. VERTEBRALS: Left vertebral artery appears occluded at the origin. The right vertebral artery is very small in candelaria iber with with likely tandem moderate stenoses at the origin and proximally. Fluid does extend from t he right vertebral artery to the basilar artery which is small in caliber. There are bilateral patent posterior communicating arteries. Visualized portions of the brain parenchyma demonstrates diffuse cerebral volume loss and evidence of encephalomalacic defect in the left cerebellar hemisphere. No significant soft tissue mass in the ce rvical soft tissues. Thyroid appears unremarkable by CT. Visualized lung apices demonstrate severe ce ntrilobular emphysema. Proximal esophagus is dilated and contains material. CONCLUSION: 1. Bulky calcified plaque at the origin of the left common carotid artery with resultant focal modera te to severe stenosis. No evidence for dissection as questioned. 2. Tenuous vertebral artery circulation with occluded left vertebral artery just beyond the origin an d very small caliber right vertebral artery with likely tandem moderate stenoses at the origin and pr oximally. There is continuous flow from the right vertebral artery to the basilar artery with patent bilateral posterior commuting arteries. 3. Approximately 50% stenosis of the proximal left internal carotid artery secondary to bulky calcifi ed plaque. 4. No hemodynamically significant stenosis in the right carotid arteries. 5. Dilated proximal esophagus containing material. Clinical correlation is recommended. 6. Severe centrilobular emphysema in the lung apices. Tutu Sharma MD on April 12, 2017 at 17:00 Board Certified Radiologist. This report was verified electronically.
[2017-04-12] MEDS ORDERED: LISINOPRIL 10 MG TAB PO ONE (18:00)
--- NOTE | 2017-04-12 18:29 | ECHRPT ---
Indication: cva/tia CONCLUSIONS Mildly dilated left ventricle. The left ventricular systolic function is normal with an estimated ejection fraction in the range of 55-60%. Mild mitral valve regurgitation. Trace aortic valve regurgitation. There is mild tricuspid valve regurgitation. BP: 170 / 76 HR: 61 Rhythm: MEASUREMENTS (Male / Female) Normal Values Technical Quality:Good 2D ECHO LV Diastolic Diameter PLAX 5.1 cm 4.2 - 5.9 / 3.9 - 5.3 cm LV Systolic Diameter PLAX 3.7 cm IVS Diastolic Thickness 1.1 cm 0.6 - 1.0 / 0.6 - 0.9 cm LVPW Diastolic Thickness 0.7 cm 0.6 - 1.0 / 0.6 - 0.9 cm LV Relative Wall Thickness 0.4 RV Internal Dim ED PLAX 2.7 cm LA Systolic Diameter LX 3.8 cm 3.0 - 4.0 / 2.7 - 3.8 cm M-MODE Aortic Root Diameter MM 2.9 cm AV Cusp Separation MM 1.8 cm DOPPLER AV Peak Velocity 191.0 cm/s AV Peak Gradient 14.6 mmHg LVOT Peak Velocity 99.7 cm/s LVOT Peak Gradient 4.0 mmHg MR Peak Velocity 678.0 cm/s MR Peak Gradient 183.9 mmHg Mitral E Point Velocity 94.3 cm/s Mitral A Point Velocity 96.3 cm/s Mitral E to A Ratio 1.0 LV E' Lateral Velocity 9.8 cm/s Mitral E to LV E' Lateral Ratio 9.7 LV E' Septal Velocity 7.5 cm/s Mitral E to LV E' Septal Ratio 12.6 TR Peak Velocity 369.0 cm/s TR Peak Gradient 54.5 mmHg FINDINGS LEFT VENTRICLE Mildly dilated left ventricle. Wall thickness is normal. The left ventricular systolic function is normal with an estimated ejection fraction in the range of 55-60%. RIGHT VENTRICLE The right ventriclar size is upper limits of normal. LEFT ATRIUM The left atrial size is mildly dilated. RIGHT ATRIUM The right atrium is not well visualized. ATRIAL SEPTUM Normal atrial septal thickness without atrial level shunting by limited color doppler interrogation. AORTA The aortic root and proximal ascending aorta are not well visualized. MITRAL VALVE Mitral annular calcification is present. Mild mitral valve regurgitation. AORTIC VALVE Trileaflet aortic valve. Aortic valve sclerosis is present. Trace aortic valve regurgitation. TRICUSPID VALVE Structurally normal tricuspid valve. No tricuspid valve stenosis or regurgitation. There is mild tricuspid valve regurgitation. There is estimated moderate pulmonary hypertension present (54 mmHg). PULMONARY VALVE The pulmonary valve is not well visualized. VESSELS The inferior vena cava is normal in size. PERICARDIUM No pericardial effusion. Jamin Yan DO (Electronically Signed) Final Date:12 April 2017 18:28
[2017-04-12 18:33] LABS: C. DIFF EPI 027 PRESUMPTIVE NEGATIVE (NEGATIVE)
[2017-04-12 19:02] LABS: C. DIFF TOXIN PCR POSITIVE (NEGATIVE)
[2017-04-12] MEDS: TAMSULOSIN HCL 0.4 MG CAP PO SCH (21:24)
[2017-04-12] MEDS: metroNIDAZOLE 500 MG INJ 100 ML IV SCH (21:31)
[2017-04-13 04:00] VITALS: BP 171/79; PULSE 58; RESP 17; TEMP 97.9; O2SAT 92
[2017-04-13] MEDS: metroNIDAZOLE 500 MG INJ 100 ML IV SCH (05:01)
[2017-04-13] MEDS: SODIUM CHLOR 0.9% 1000 ML INJ 1,000 ML IV SCH ×3 (05:03→23:56)
[2017-04-13 06:05] LABS: BICARBONATE 27.4 MEQ/L (21.0-32.0); POTASSIUM 3.7 MEQ/L (3.5-5.1)
[2017-04-13] MEDS: INSULIN ASPART SUPPLEMENTAL SCALE SQ SCH ×4 (07:00→21:49)
[2017-04-13 08:00] VITALS: BP 110/61; PULSE 60; RESP 18; TEMP 98.6; O2SAT 91
[2017-04-13] MEDS: SODIUM CHLORIDE 0.9% FLUSH 5 ML FLUSH IV FLUSH SCH ×2 (09:00→21:52)
[2017-04-13] MEDS: LISINOPRIL 10 MG TAB PO SCH (09:00)
[2017-04-13] MEDS: DIPYRIDAMOLE/ASPIRIN 200 MG/25 MG CAP PO SCH ×2 (09:00→21:48)
[2017-04-13] MEDS: FAMOTIDINE 20 MG TAB PO SCH ×2 (09:00→21:48)
[2017-04-13] MEDS: PRAVASTATIN SOD 40 MG TAB PO SCH (09:00)
--- NOTE | 2017-04-13 10:44 | HHI.PR ---
Subjective Remarks Follow up for TIA, c.difficile colitis. The patient had multiple episodes of watery diarrhea yesterday, Cdiff was positive. The patient is oriented to self only, and answers "no" to every question. Per RN, he has been uncooperative with nursing staff, not eating or drinking, refusing oral medications, requiring restraints to stay in bed despite sitter at bedside. The patient has not yet had a BM today but did have 5 episodes of diarrhea in the past 24hours. Objective Vitals Vital Signs Date Time Temp Pulse Resp B/P Pulse Ox O2 Delivery O2 Flow Rate FiO2 04/13/17 08:00 98.6 60 18 110/61 91 04/13/17 04:00 97.9 58 17 171/79 92 04/12/17 20:32 97.9 72 17 172/76 95 04/12/17 15:41 97.8 70 16 176/79 95 04/12/17 13:10 82 04/12/17 10:58 97.8 63 15 145/85 95 I/O 04/12/17 04/12/17 04/12/17 04/13/17 04/13/17 04/13/17 07:00 15:00 23:00 07:00 15:00 23:00 Intake Total 240 ml 700 ml Balance 240 ml 700 ml Intake Oral 240 ml 200 ml IV Total 500 ml # Voids 1 3 2 # Bowel Movements 5 Result Diagram: 04/11/17 0558 04/13/17 0502 Imaging Last Impressions Neck CTA 04/12/17 0000 Signed Impressions: Service Date/Time: Wednesday, April 12, 2017 15:59 - CONCLUSION: 1. Bulky calcified plaque at the origin of the left common carotid artery with resultant focal moderate to severe stenosis. No evidence for dissection as questioned. 2. Tenuous vertebral artery circulation with occluded left vertebral artery just beyond the origin and very small caliber right vertebral artery with likely tandem moderate stenoses at the origin and proximally. There is continuous flow from the right vertebral artery to the basilar artery with patent bilateral posterior commuting arteries. 3. Approximately 50%% stenosis of the proximal left internal carotid artery secondary to bulky calcified plaque. 4. No hemodynamically significant stenosis in the right carotid arteries. 5. Dilated proximal esophagus containing material. Clinical correlation is recommended. 6. Severe centrilobular emphysema in the lung apices. Tutu Sharma MD Neck Magnetic Resonance Angiography 04/11/1745 Signed Impressions: Service Date/Time: April 08:52 - CONCLUSION: Appearance worrisome for a possible intimal dissection involving the proximal left common carotid artery. Mild disease without significant stenosis at the carotid bifurcations bilaterally. Tenuous vertebral circulation as described. Further evaluation with CTA examination of the arch and carotids would be suggested. Murray Perrin MD Brain MRI 04/11/1745 Signed Impressions: Service Date/Time: , April 11, 2017 08:52 - CONCLUSION: 1. Diffuse bilateral cortical atrophy and chronic white matter changes. 2. Multiple areas of old infarction are demonstrated and described above. These findings are stable compared to the prior CT scan of the brain. Brad Alston MD Head Magnetic Resonance Angiography 04/11/17 Signed Impressions: Service Date/Time: , April 11, 2017 08:52 - CONCLUSION: 1. No evidence for large vessel occlusion, aneurysm, or vascular malformation involving the anterior situation. 2. Apparent occlusion of the distal right vertebral artery with small caliber left vertebral and small caliber basilar artery. The posterior communicating arteries are patent bilaterally. There is evidence for prior left cerebellar infarct indicating chronicity. Tutu Sharma MD Head CT 04/11/17 Signed Impressions: Service Date/Time: , April 11, 2017 06:02 - CONCLUSION: 1. Old infarcts. 2. No acute intracranial abnormality. Chan Delgadillo MD Cervical Spine CT 04/11/17 Signed Impressions: Service Date/Time: April 06:02 - CONCLUSION: 1. Minimal anterolisthesis C3 on C4. 2. No fracture. Chan Delgadillo MD Objective Remarks GENERAL: Well-nourished, well-developed elderly male patient in [facility]. SKIN: Warm and dry. No rash. HEENT: Normocephalic. Right Frontal head contusion/ecchymosis. Pupils equal and round. Mucous membranes pink and moist. NECK: Supple. Trachea midline. CARDIOVASCULAR: Regular rate and rhythm. S1, S2 noted. No murmur appreciated. RESPIRATORY: No accessory muscle use. Clear to auscultation. Breath sounds equal bilaterally. GASTROINTESTINAL: Abdomen soft, non-tender, nondistended. Normoactive bowel sounds x4. MUSCULOSKELETAL: No obvious deformities. Extremities without clubbing, cyanosis , or edema. NEUROLOGICAL: Awake and alert. No obvious cranial nerve deficits. Motor grossly within normal limits. 5/5 muscle strength in bilateral upper and lower extremities. Normal speech. PSYCHIATRIC: Slightly agitated mood; insight and judgment poor. Medications and IVs Current Medications Medications (Trade) Dose Ordered Sig/Paulo Route Start Time Stop Time Status Last Admin (NS Flush) 2 ml BID IV FLUSH 04/11/17 09:00 04/12/17 21:00 (NS Flush) 2 ml UNSCH PRN IV FLUSH 04/11/17 07:30 (NovoLOG SUPPLEMENTAL SCALE) 1 ACHS SQ 04/11/17 11:00 (D50w (Vial) Inj) 50 ml UNSCH PRN IV PUSH 04/11/17 07:30 (Glucagon Inj) 1 mg UNSCH PRN OTHER 04/11/17 07:30 (Aggrenox 200-25 Mg) 1 cap BID PO 04/11/17 09:00 04/12/17 21:25 (Pepcid) 10 mg BID PO 04/11/17 09:00 04/12/17 21:25 Pravastatin Sodium 40 mg 40 mg DAILY PO 04/11/17 09:00 04/12/17 08:32 (NS 1000 ml Inj) 1,000 ml @ 75 mls/hr [id number] IV 04/11/17 21:00 04/13/17 05:03 (Prinivil) 10 mg DAILY PO 04/13/17 09:00 (Flomax) 0.4 mg HS PO 04/12/17 21:00 04/12/17 21:24 (Flagyl) 500 mg Q8HR PO 04/13/17 14:00 04/27/17 13:59 A/P Problem List: (1) TIA (transient ischemic attack) ICD Code: G45.9 Status: Acute (2) Closed head injury ICD Code: S09.90XA Status: Acute Assessment and Plan 77-year-old male from [facility] with history of CVA, HLD, HTN, COPD, chronic pain, depression, presents after a fall with possible facial droop, concern for TIA/CVA Closed head injury: secondary to fall from bed, reportedly hit head on oxygen tank -Head CT images reviewed, no acute findings Transient ischemic attack: with possible facial droop upon arrival, now resolved. No TPA therapy initiated as patient's symptoms resolved -Continue with Aggrenox and statin -NIHSS, Neuro checks, Monitor on telemetry (although patient repeatedly removed telemetry) -PT/OT/ST evaluations -initially allowed permissive HTN, IV Vasotec and IV labetalol if SBP >220 -Lipid profile wnl and HgbA1c 6.1 -Head CT and Brain MRI images reviewed, evidence of old infarcts, no acute findings -Head MRA shows occlusion of distal right vertebral artery; otherwise unremarkable -Neck MRA shows possible intimal dissection proximal left common carotid artery; recommends neck CTA -Neck CTA showed no dissection however with focal 50% stenosis at origin of left common carotid secondary to bulky calcified plaque -EEG unremarkable -Echocardiogram with EF 55-60%, mild MR, tract AR, mild TR -Holter monitoring essentially unremarkable, sinus rhythm with PACs -Neurology consulted, appreciate recommendations, can d/c on aggrenox C.Difficile Colitis: patient with 5 episodes of watery diarrhea on 04/12 -C. difficile PCR positive -started on Flagyl 500mg q8h [id number], may need to use IV if patient continues to refuse medications -monitor BMs Dementia with Agitation: requiring restraints and sitter, patient consistently refuses meds/food -will consult psychiatry for assistance with agitation -start on seroquel 25mg hs for now -discussed with Dr. Wolff, recommends Haldol 0.5mg po tid prn agitation ( can schedule if needed) -consult palliative care to assist with goals and custodial planning, consider hospice? -continue restraints prn and sitter at bedside for safety DVT prophylaxis: SCDs Discharge Planning Discharge pending further clinical improvement, diagnosed with new C.diff on 04/12. Discussed with case management, will make inpatient. Tamiko Villatoro PA-C Apr 13, 2017 10:44 am
[2017-04-13] MEDS ORDERED: QUEtiapine FUMARATE 25 MG TAB PO ONE (10:45)
[2017-04-13 12:00] VITALS: BP 173/79; PULSE 60; PULSE 78; RESP 20; TEMP 97.5; O2SAT 93
--- NOTE | 2017-04-13 13:26 | PD.PSY.CON ---
Provisional Diagnosis Admission Date Apr 13, 2017 at 10:53 [place] I. Altered mental status are 41.82 History of Present Illness Service Psychiatry Consult Requested By EDMD Reason for Consult Consultation for behavior control Primary Care Physician No Primary Care Physician HPI Patient is a 72-year-old white male who comes with altered mental status coming from a local alf. Also has been diagnosed with C. difficile. Has to see for behavior control it appears patient has been grabbing at his IV tubing and other tubing. Patient seen in his room with nurse Conchis. Patient is drowsy to alert he does know he is [facility] is [place]. There is decided as to time and date. He is legally blind. His sitter states that when he wakes up our staff come to help assist him he becomes more agitated. At this time patient does denies suicidality he denies voices. There is this underlying disorientation noted. Other consultations reviewed and agreed with. At this time I feel there is some behavior control and likely needed be best to offer a schedule medication than to sandra the behaviors with when necessary' s. I would suggest small dose of Haldol perhaps 2-3 times per day orally either tablets or liquid depending on his cooperation Review of Systems ROS Limitations: Altered Mental Status Past Family Social History Coded Allergies: No Known Allergies (Verified , 09/20/16) Past Medical History C MedSurg Reported Medications Cholecalciferol (Vitamin D3)5,000 Unit Cap5,000 Units PO DAILY #1 BOTTLE Ref 0 04/11/17 Simvastatin 20 Mg Tab20 Mg PO DAILY #30 TAB Ref 0 04/11/17 Ranitidine 150 Mg Cap75 Mg PO BID #60 CAP Ref 0 04/11/17 Oxycodone-Acetaminophen (Percocet)5-325 mg Tab1 Tab PO Q6H PRN (PAIN) Ref 0 04/11/17 Oxybutynin (Ditropan)5 Mg Tab5 Mg PO Q12HR #60 TAB Ref 0 04/11/17 Multiple Vitamins W/ Minerals (Ocuvite)1 Tab1 Tab PO DAILY Ref 0 04/11/17 Multiple Vitamins W/ Minerals (Thera M Plus)1 Tab1 Tab PO DAILY Ref 0 04/11/17 Lisinopril 10 Mg Tab10 Mg PO DAILY #30 TAB Ref 0 04/11/17 Gabapentin 400 Mg [id number] Cap PO HS #30 CAP Ref 0 04/11/17 Tamsulosin (Flomax)0.4 Mg Cap0.4 Mg PO HS #30 CAP Ref 0 04/11/17 Fish Oil-Cholecalciferol (Fish Oil + D3)1,200-1,000 Mg-Unit Cap1 Cap PO DAILY # 30 CAP Ref 0 04/11/17 Lorazepam (Ativan)1 Mg Tab1 Mg PO Q4H PRN (for severe anxiety or dyspnea) Ref 0 04/11/17 Dipyridamole-Aspirin (Aggrenox)200-25 Mg Cap1 Cap PO BID #60 CAP Ref 0 04/11/17 Current Medications Medications (Trade) Dose Ordered Sig/Paulo Route Start Time Stop Time Status Last Admin (NS Flush) 2 ml BID IV FLUSH 04/11/17 09:00 04/12/17 21:00 (NS Flush) 2 ml UNSCH PRN IV FLUSH 04/11/17 07:30 (NovoLOG SUPPLEMENTAL SCALE) 1 ACHS SQ 04/11/17 11:00 (D50w (Vial) Inj) 50 ml UNSCH PRN IV PUSH 04/11/17 07:30 (Glucagon Inj) 1 mg UNSCH PRN OTHER 04/11/17 07:30 (Aggrenox 200-25 Mg) 1 cap BID PO 04/11/17 09:00 04/13/17 09:00 (Pepcid) 10 mg BID PO 04/11/17 09:00 04/12/17 21:25 Pravastatin Sodium 40 mg 40 mg DAILY PO 04/11/17 09:00 04/12/17 08:32 (NS 1000 ml Inj) 1,000 ml @ 75 mls/hr [id number] IV 04/11/17 21:00 04/13/17 12:53 (Prinivil) 10 mg DAILY PO 04/13/17 09:00 (Flomax) 0.4 mg HS PO 04/12/17 21:00 04/12/17 21:24 (Flagyl) 500 mg Q8HR PO 04/13/17 14:00 04/27/17 13:59 (SEROquel) 25 mg HS PO 04/13/17 21:00 Family History Unknown at this time due to patient's cognitive disability Social History A month this time due to patient's cognitive disability is living in a alf Patient's Strengths (min. 2) As support group through alf patient talkative Physical Exam Please see H&P per attending M.DAnam Vital Signs Vital Signs Date Time Temp Pulse Resp B/P Pulse Ox O2 Delivery O2 Flow Rate FiO2 04/13/17 12:00 97.5 60 20 173/79 93 04/11/17 06:11 Nasal Cannula 4 I/O 04/12/17 04/12/17 04/13/17 08:00 16:00 00:00 Intake Total 240 ml 700 ml Balance 240 ml 700 ml Mental Status Examination Alert diffusely confused elderly white male Appearance Markedly disheveled Speech: Hesitant, Slow, Tangential Orientation: Person, Place (he notices an [facility]) Memory: Impaired (describe) Thought Process: Loose Association Thought Content: Other (markedly disorganized) Language Poor Fund of Knowledge Poor Hallucination Type: None (denies) Attention and Concentration: Other (poor) Suicidal Ideation: No Previous Suicide Attempts: No Homicidal Ideation: No Previous Homicide Attempts: No Insight: Poor Judgment: Poor Affect: Other (decreased range intensity) Mood: Irritable (mildly), Other (restricted) Motor Activity: Abnormal gait-specify (patient laying in bed unable to ascertain that appears to be moving all 4 extremities) Assessment & Plan Problem List: (1) Altered mental status ICD Code: R41.82 Assessment & Plan Estimated LOS: days this time would agree with continued evaluation. If patient does need some behavior controlled recommended to schedule small dose of Haldol perhaps 0.5 mg of related the tablet of the elixir 3 times a day thanks for consult will son at the present time please reconsult with Dr. Skelton Saturday through Saturday or psychiatry chief controller tower on the s Discharge Planning See above Problem Qualifiers (1) Altered mental status: Qualified Code: R41.82 - Altered mental status, unspecified altered mental status type Murray Wolff MD Apr 13, 2017 13:26
[2017-04-13] MEDS ORDERED: HALOPERIDOL 0.5 MG TAB PO PRN (13:45)
[2017-04-13 16:00] VITALS: BP 186/88; PULSE 62; RESP 20; TEMP 98.4; O2SAT 92
[2017-04-13] MEDS: metroNIDAZOLE 500 MG TAB PO SCH ×2 (16:16→21:48)
[2017-04-13] MEDS: ENALAPRILAT 1.25 MG/ML VIAL IV PUSH PRN (16:27)
[2017-04-13 20:00] VITALS: BP 130/61; PULSE 56; RESP 18; TEMP 98; O2SAT 96
[2017-04-13] MEDS: QUEtiapine FUMARATE 25 MG TAB PO SCH (21:48)
[2017-04-13] MEDS: TAMSULOSIN HCL 0.4 MG CAP PO SCH (21:48)
[2017-04-14] VITALS (8 sets, daily range): BP systolic 136–179; BP diastolic 71–97; PULSE 60–118; RESP 18–20; TEMP 97–99.3; O2SAT 91–97
[2017-04-14] MEDS: metroNIDAZOLE 500 MG TAB PO SCH ×3 (05:25→22:17)
[2017-04-14] MEDS: DIPYRIDAMOLE/ASPIRIN 200 MG/25 MG CAP PO SCH ×2 (08:58→21:18)
[2017-04-14] MEDS: LISINOPRIL 10 MG TAB PO SCH (08:59)
[2017-04-14] MEDS: PRAVASTATIN SOD 40 MG TAB PO SCH (08:59)
[2017-04-14] MEDS: FAMOTIDINE 20 MG TAB PO SCH ×2 (08:59→21:18)
[2017-04-14] MEDS: SODIUM CHLORIDE 0.9% FLUSH 5 ML FLUSH IV FLUSH SCH ×2 (09:00→21:18)
[2017-04-14] MEDS: SODIUM CHLOR 0.9% 1000 ML INJ 1,000 ML IV SCH ×2 (11:15→15:40)
--- NOTE | 2017-04-14 12:24 | HHI.PR ---
Subjective Remarks Patient refusing to eat. He states he doesn't know why he does not want to eat. No diarrhea reported today. He denies pain. Objective Vitals Vital Signs Date Time Temp Pulse Resp B/P Pulse Ox O2 Delivery O2 Flow Rate FiO2 04/14/17 12:13 98.1 78 20 155/71 92 04/14/17 08:28 99.3 104 18 169/76 97 04/14/17 07:21 64 04/14/17 04:04 97.3 60 18 148/86 96 04/14/17 00:07 97.9 64 18 136/88 95 04/13/17 20:00 98.0 56 18 130/61 96 04/13/17 16:00 98.4 62 20 186/88 92 04/13/17 16:00 62 I/O 04/13/17 04/13/17 04/13/17 04/14/17 04/14/17 04/14/17 07:00 15:00 23:00 07:00 15:00 23:00 Intake Total 539 ml Balance 539 ml IV Total 539 ml # Voids 2 Result Diagram: 04/11/17 0558 04/13/17 0502 Objective Remarks GENERAL: Demented and agitated. CARDIOVASCULAR: Normal rate and regular rhythm without murmurs, gallops, or rubs. RESPIRATORY: Breath sounds equal and clear to auscultation bilaterally. GASTROINTESTINAL: Abdomen soft, non-tender, non-distended. Normal active bowel sounds MUSCULOSKELETAL: Extremities without cyanosis, or edema. NEURO: Alert. Oriented to self only. In restraints. Moves all extremities. PSYCH: Anxious A/P Problem List: (1) TIA (transient ischemic attack) ICD Code: G45.9 Status: Acute (2) Closed head injury ICD Code: S09.90XA Status: Acute Assessment and Plan 77-year-old male from [facility] with history of CVA, HLD, HTN, COPD, chronic pain, depression, presents after a fall with possible facial droop, concern for TIA/CVA Closed head injury: secondary to fall from bed, reportedly hit head on oxygen tank -Head CT images reviewed, no acute findings Transient ischemic attack: with possible facial droop upon arrival, now resolved. No TPA therapy initiated as patient's symptoms resolved -Continue with Aggrenox and statin -NIHSS, Neuro checks, Monitor on telemetry (although patient repeatedly removed telemetry) -PT/OT/ST evaluations -initially allowed permissive HTN, IV Vasotec and IV labetalol if SBP >220 -Lipid profile wnl and HgbA1c 6.1 -Head CT and Brain MRI images reviewed, evidence of old infarcts, no acute findings -Head MRA shows occlusion of distal right vertebral artery; otherwise unremarkable -Neck MRA shows possible intimal dissection proximal left common carotid artery; recommends neck CTA -Neck CTA showed no dissection however with focal 50% stenosis at origin of left common carotid secondary to bulky calcified plaque -EEG unremarkable -Echocardiogram with EF 55-60%, mild MR, tract AR, mild TR -Holter monitoring essentially unremarkable, sinus rhythm with PACs -Neurology consulted, appreciate recommendations, can d/c on aggrenox C.Difficile Colitis: patient with 5 episodes of watery diarrhea on 04/12 -C. difficile PCR positive -started on Flagyl 500mg q8h [id number], may need to use IV if patient continues to refuse medications -monitor BMs Dementia with Agitation: requiring restraints and sitter, patient consistently refuses food but has been taking the medications today. -Appreciate psychiatry following. Continue Seroquel and as needed Haldol. -consult palliative care to assist with goals and terminal operator planning, may be a hospice candidate -continue restraints prn and sitter at bedside for safety - Refusal to eat may be related to C-Diff. Consider Megace if no improvement. - Continue IVF. DVT prophylaxis: SCDs Discharge Planning Will need to go back to SNF. Patient with dementia, TIA, refusing to eat. Palliative care consulted. Antwan Mckeon MD Apr 14, 2017 12:24
[2017-04-14] MEDS: QUEtiapine FUMARATE 25 MG TAB PO SCH (21:18)
[2017-04-14] MEDS: TAMSULOSIN HCL 0.4 MG CAP PO SCH (21:18)
[2017-04-15] VITALS (7 sets, daily range): BP systolic 143–179; BP diastolic 71–85; PULSE 58–84; RESP 19–20; TEMP 95.6–98.4; O2SAT 91–95
[2017-04-15] MEDS: SODIUM CHLOR 0.9% 1000 ML INJ 1,000 ML IV SCH ×2 (03:55→17:24)
[2017-04-15] MEDS: metroNIDAZOLE 500 MG TAB PO SCH ×3 (05:30→21:59)
--- NOTE | 2017-04-15 07:45 | HHI.PR ---
Subjective Remarks sr Objective Vital Signs Date Time Temp Pulse Resp B/P Pulse Ox O2 Delivery O2 Flow Rate FiO2 04/15/17 04:00 97.3 65 19 143/71 91 04/15/17 00:25 98.4 69 20 166/79 91 04/14/17 23:16 70 04/14/17 19:39 97.0 71 20 173/97 91 04/14/17 16:02 98.2 118 18 179/81 94 04/14/17 12:13 98.1 78 20 155/71 92 04/14/17 08:28 99.3 104 18 169/76 97 I/O 04/14/17 04/14/17 04/14/17 04/15/17 04/15/17 04/15/17 07:00 15:00 23:00 07:00 15:00 23:00 Intake Total 539 ml 635 ml 731 ml 591 ml Output Total 200 ml 200 ml Balance 539 ml 635 ml 531 ml 391 ml Intake Oral 120 ml 20 ml IV Total 539 ml 635 ml 611 ml 571 ml Output Urine Total 200 ml 200 ml # Voids 0 1 # Bowel Movements 0 0 Result Diagram: 04/11/17 0558 04/13/17 0502 Assessment and Plan Assessment and Plan imp eeg neg no new cva bilat old occipital and cbllr cva no new cva creat 1.47 yes mra cow pcomms strong bilat vb small throughout echo and holter pend plan is to check cta neck for unlikely dissection if creat looks better this am after ivf overnoc he is on statin if echo looks bad could consider coumadin o/w if nl can dc on agx if cta ok if ldl up adjust statin dose i can fu o/p the holter i think he does better when awake awhile adn worse when just wakes up Marv Christie MD Apr 15, 2017 07:45 04/15/17 much better na low echo and holter neg eeg equivocal may have had a sz unclear at this point oob and ok to dc neurowise with office fu for ? dementia when na better labs neg i will sign off no aed for now as unclear if actually had sz i will review eeg and get back if i think warrants any aed Marv Christie MD Apr 15, 2017 07:45
--- NOTE | 2017-04-15 07:52 | HHI.PR ---
Subjective Remarks sr Objective Vital Signs Date Time Temp Pulse Resp B/P Pulse Ox O2 Delivery O2 Flow Rate FiO2 04/15/17 04:00 97.3 65 19 143/71 91 04/15/17 00:25 98.4 69 20 166/79 91 04/14/17 23:16 70 04/14/17 19:39 97.0 71 20 173/97 91 04/14/17 16:02 98.2 118 18 179/81 94 04/14/17 12:13 98.1 78 20 155/71 92 04/14/17 08:28 99.3 104 18 169/76 97 I/O 04/14/17 04/14/17 04/14/17 04/15/17 04/15/17 04/15/17 07:00 15:00 23:00 07:00 15:00 23:00 Intake Total 539 ml 635 ml 731 ml 591 ml Output Total 200 ml 200 ml Balance 539 ml 635 ml 531 ml 391 ml Intake Oral 120 ml 20 ml IV Total 539 ml 635 ml 611 ml 571 ml Output Urine Total 200 ml 200 ml # Voids 0 1 # Bowel Movements 0 0 Result Diagram: 04/11/17 0558 04/13/17 0502 Objective Remarks confused moves ue awake speech fluent not yr Assessment and Plan Assessment and Plan imp eeg neg no new cva bilat old occipital and cbllr cva no new cva creat nl mra cow pcomms strong bilat vb small throughout echo and holter neg he is on statin ldl nl the left cca stenosis appears asx and i would rx just plavix and statin ok dc back to Marv Jenkins MD Apr 15, 2017 07:52
[2017-04-15] MEDS: SODIUM CHLORIDE 0.9% FLUSH 5 ML FLUSH IV FLUSH SCH ×2 (09:00→21:00)
[2017-04-15] MEDS: DIPYRIDAMOLE/ASPIRIN 200 MG/25 MG CAP PO SCH ×2 (09:20→21:59)
[2017-04-15] MEDS: FAMOTIDINE 20 MG TAB PO SCH ×2 (09:21→21:59)
[2017-04-15] MEDS: LISINOPRIL 10 MG TAB PO SCH (09:21)
[2017-04-15] MEDS: PRAVASTATIN SOD 40 MG TAB PO SCH (09:22)
[2017-04-15] MEDS: CLOPIDOGREL 75 MG TAB PO SCH (09:27)
[2017-04-15 12:27] LABS: BICARBONATE 24.5 MEQ/L (21.0-32.0); POTASSIUM 3.6 MEQ/L (3.5-5.1)
--- NOTE | 2017-04-15 12:33 | HHI.PR ---
Subjective Remarks Follow-up for TIA and dementia with agitation. Discussed with RN. The patient refused to work with PT today. He did eat a small amount. He has not had a BM for a few days. He has been taking his medications. The patient denies any complaints. Patient denies any pain. He is oriented to self. He does not answer questions regarding place or time. Objective Vitals Vital Signs Date Time Temp Pulse Resp B/P Pulse Ox O2 Delivery O2 Flow Rate FiO2 04/15/17 11:31 98.2 58 20 172/77 95 04/15/17 10:35 64 04/15/17 04:00 97.3 65 19 143/71 91 04/15/17 00:25 98.4 69 20 166/79 91 04/14/17 23:16 70 04/14/17 19:39 97.0 71 20 173/97 91 04/14/17 16:02 98.2 118 18 179/81 94 I/O 04/14/17 04/14/17 04/14/17 04/15/17 04/15/17 04/15/17 07:00 15:00 23:00 07:00 15:00 23:00 Intake Total 539 ml 635 ml 731 ml 591 ml Output Total 200 ml 200 ml Balance 539 ml 635 ml 531 ml 391 ml Intake Oral 120 ml 20 ml IV Total 539 ml 635 ml 611 ml 571 ml Output Urine Total 200 ml 200 ml # Voids 0 1 # Bowel Movements 0 0 Result Diagram: 04/11/17 0558 04/13/17 0502 Imaging Last Impressions Neck CTA 04/12/17 0000 Signed Impressions: Service Date/Time: Wednesday, April 12, 2017 15:59 - CONCLUSION: 1. Bulky calcified plaque at the origin of the left common carotid artery with resultant focal moderate to severe stenosis. No evidence for dissection as questioned. 2. Tenuous vertebral artery circulation with occluded left vertebral artery just beyond the origin and very small caliber right vertebral artery with likely tandem moderate stenoses at the origin and proximally. There is continuous flow from the right vertebral artery to the basilar artery with patent bilateral posterior commuting arteries. 3. Approximately 50%% stenosis of the proximal left internal carotid artery secondary to bulky calcified plaque. 4. No hemodynamically significant stenosis in the right carotid arteries. 5. Dilated proximal esophagus containing material. Clinical correlation is recommended. 6. Severe centrilobular emphysema in the lung apices. Tutu Sharma MD Neck Magnetic Resonance Angiography 04/11/1745 Signed Impressions: Service Date/Time: April 08:52 - CONCLUSION: Appearance worrisome for a possible intimal dissection involving the proximal left common carotid artery. Mild disease without significant stenosis at the carotid bifurcations bilaterally. Tenuous vertebral circulation as described. Further evaluation with CTA examination of the arch and carotids would be suggested. Murray Perrin MD Brain MRI 04/11/1745 Signed Impressions: Service Date/Time: April 08:52 - CONCLUSION: 1. Diffuse bilateral cortical atrophy and chronic white matter changes. 2. Multiple areas of old infarction are demonstrated and described above. These findings are stable compared to the prior CT scan of the brain. Brad Alston MD Head Magnetic Resonance Angiography 04/11/17 Signed Impressions: Service Date/Time: April 08:52 - CONCLUSION: 1. No evidence for large vessel occlusion, aneurysm, or vascular malformation involving the anterior situation. 2. Apparent occlusion of the distal right vertebral artery with small caliber left vertebral and small caliber basilar artery. The posterior communicating arteries are patent bilaterally. There is evidence for prior left cerebellar infarct indicating chronicity. Tutu Sharma MD Head CT 04/11/17 Signed Impressions: Service Date/Time: April 06:02 - CONCLUSION: 1. Old infarcts. 2. No acute intracranial abnormality. Chan Delgadillo MD Cervical Spine CT 04/11/17 Signed Impressions: Service Date/Time: April 06:02 - CONCLUSION: 1. Minimal anterolisthesis C3 on C4. 2. No fracture. Chan Delgadillo MD Objective Remarks GENERAL: Well-developed well-nourished. In no acute distress. SKIN: Warm and dry. No lesions noted. HEENT: Normocephalic. Pupils equal and round. Mucous membranes pink and moist. CARDIOVASCULAR: Regular rate and rhythm. No murmur appreciated. RESPIRATORY: No accessory muscle use. Clear to auscultation. Breath sounds equal bilaterally. GASTROINTESTINAL: Abdomen soft, non-tender, nondistended. Bowel sounds x4. MUSCULOSKELETAL: No obvious deformities. No clubbing or cyanosis. No edema. NEUROLOGICAL: Appears sleepy. Answers questions appropriately. Moves upper and lower extremities spontaneously. Normal speech. PSYCHIATRIC: Currently calm mood and flat affect; insight and judgment poor. Oriented to self. A/P Problem List: (1) TIA (transient ischemic attack) ICD Code: G45.9 Status: Acute (2) Closed head injury ICD Code: S09.90XA Status: Acute Assessment and Plan 77-year-old male from [facility] with history of CVA, HLD, HTN, COPD, chronic pain, depression, presents after a fall with possible facial droop, concern for TIA/CVA Closed head injury: secondary to fall from bed, reportedly hit head on oxygen tank -Head CT with no acute findings Transient ischemic attack: with possible facial droop upon arrival, now resolved. No TPA therapy initiated as patient's symptoms resolved -Continue with Aggrenox and statin. Neurology had a Plavix. -NIHSS, Neuro checks, Monitor on telemetry (although patient repeatedly removed telemetry) -PT/OT/ST evaluations -Lipid profile wnl and HgbA1c 6.1 -Head CT and Brain MRI showed evidence of old infarcts, no acute findings -Head MRA shows occlusion of distal right vertebral artery; otherwise unremarkable -Neck MRA shows possible intimal dissection proximal left common carotid artery; recommends neck CTA -Neck CTA showed no dissection however with focal 50% stenosis at origin of left common carotid secondary to bulky calcified plaque -EEG unremarkable -Echocardiogram with EF 55-60%, mild MR, tract AR, mild TR -Holter monitoring essentially unremarkable, sinus rhythm with PACs -Neurology consulted, appreciate recommendations, can d/c on Plavix C.Difficile Colitis: patient with 5 episodes of watery diarrhea on 04/12 -C. difficile PCR positive -started on Flagyl 500mg q8h [id number], may need to use IV if patient continues to refuse medications -monitor BMs Dementia with Agitation: requiring restraints and sitter, patient consistently refuses food but has been taking the medications today. -Psychiatry consulted, recommended Haldol as needed. Neurology discontinued Haldol. -Change Seroquel to Risperdal with poor by mouth intake. -consulted palliative care to assist with goals and skilled nursing planning, may be a hospice candidate -continue restraints prn and sitter at bedside for safety -Refusal to eat may be related to C-Diff. Consider Megace if no improvement. Check calorie count. -Continue IVF. Hypertension: Not well controlled. Increase lisinopril. Continue Flomax. Vasotec as needed. DVT prophylaxis: SCDs Discharge Planning Cleared by neurology for discharge. Discharge planning back to his SNF when behavior is better controlled. Piyush Jefferson Apr 15, 2017 12:33
[2017-04-15 12:43] LABS: HEMATOCRIT 44.4 % (39.0-51.0); MEAN CELL VOLUME 92.9 FL (80.0-100.0); MEAN CORPUSCULAR HEMOGLOBIN 29.9 PG (27.0-34.0); MEAN CORPUSCULAR HGB CONC 32.1 % (32.0-36.0); PLATELET COUNT 142 TH/MM3 (150-450); RED BLOOD COUNT 4.78 MIL/MM3 (4.50-5.90); RED CELL DISTRIBUTION WIDTH 13.8 % (11.6-17.2); REVIEW FLAG FINAL; WHITE BLOOD COUNT 7.6 TH/MM3 (4.0-11.0)
[2017-04-15] MEDS ORDERED: LISINOPRIL 10 MG TAB PO ONE (12:45)
[2017-04-15] MEDS: DOCUSATE SODIUM 100 MG CAP PO SCH (13:25)
--- NOTE | 2017-04-15 15:36 | PD.CONS ---
Consult Service Palliative Care Consult Requested By Dr. Mckeon Primary Care Physician No Primary Care Physician Reason for Consultation a. To assist with evaluation and management of symptoms including: Debility. b. To assist medical decision maker(s) with: better understanding of current medical conditions; weighing benefits/burdens of medical treatment options; making medical treatment decisions. . HPI History of Present Illness Mr. Camp is a 77-year-old male with a medical history of O2 dependent COPD, stroke, hypertension, chronic pain and GERD who presented to the ED via EMS on . Patient is a long-term resident of [facility]. As per medical records, patient fell out of his bed, hitting his head with oxygen concentrator. Upon arrival, patient was noted for left-sided facial droop, unclear if new onset or baseline secondary to prior CVA. Head CT negative for acute process, or infarcts noted. Cervical spine CT revealing minimal anterolisthesis C3 on C4 but no fractures. Head MRA with no evidence for large vessel occlusion. Neck MRA worse on for a possible intimal dissection involving the proximal left common carotid artery. Brain MRI revealing diffuse bilateral cortical atrophy and chronic white matter changes, multiple areas of old infarction, negative for acute process. Patient was admitted for further management. Neurology, Dr. Patterson consulted on 04/11/17. EEG 04/11/17 negative for active seizure. Echocardiogram 04/12/17 showing EF of 55-60%, mild mitral, aortic and tricuspid regurgitation. Repeat neck CTA 04/12/17 with no evidence for dissection as previously questioned. 50% stenosis of the proximal left internal carotid artery secondary to calcified plaque. Patient positive for C. difficile on . Psychiatry, Dr. Wolff consulted on secondary to agitation. It appears that patient was grabbing his IV to and refusing to eat. Medical management recommended. Throughout it became, patient has been declining/ refusing to work with physical therapy and has only been eating small amounts of food. Palliative care has been consulted for further clarifications of goals of care given chronic comorbidities, the likelihood of advanced dementia and treatment refusal. Reviewed past medical history. Recent emergency room visit on 09/20/16 secondary to fall, patient sustained facial lacerations. Patient was discharge back to [facility]. Patient was seen in his room, his resting in bed in no acute distress. Patient is legally blind secondary to macular degeneration. Verbal but not always able to communicate needs secondary to confusion. Patient alert to self and place. He was able to tell me his name but not age. He told me he was at [facility] but was unable to tell me the reason why. Patient denies any pain, shortness of breath or abdominal discomfort. Patient on bilateral soft wrist restraints and sitter at bedside. Laboratory today revealing WBC 7.6, Hgb 14.3 , platelet count 142. Sodium 138, potassium 3.6, BUN/creatinine 18/0.99. Patient remains afebrile, stable hemodynamically. Tolerating room air, oxygen saturation in the need to low 90s. Has not been eating much, sitter reported that patient declined breakfast and lunch but has been accepting coffee. Telephone conversation with patient's daughter Chuyita Mota. She reports that she is designated healthcare surrogate, reports that [facility] has documents. Obtained patient's past medical history and psychosocial history. Daughter reports that patient has never been diagnosed with dementia. Reviewed with daughter that patient likely has advanced dementia based on clinical presentation. Reviewed likely trajectory of illness to include further complications, continue decline and . Daughter reports that patient has been residing at a long term for the past 15 years secondary to increased needs with ADLs. Patient chair to bedbound, using wheelchair most of the time. Heavy smoker, smoking approximately a pack per day. Goal of therapy is for patient to return back to [place] for long-term care. Introduce hospice philosophy and benefits. Reviewed future role of hospice should patient's clinical condition continues to worsen or there is additional physical decline. Patient's daughter receptive to this. All questions were answered in great detail. Palliative care will continue to follow-up. . Function/Cognitive Trajectory Patient resident of [facility]. Has been a resident of long-term facility for the past 15 years secondary to increased needs with ADLs. Patient wheelchair to bedbound. Able to feed self. Legally blind. . Review of Systems ROS Limitations: Altered Mental Status, Poor Historian Constitutional: COMPLAINS OF: Fatigue, Pain, Generalized weakness Endocrine: DENIES: Heat/cold intolerance Eyes: COMPLAINS OF: Vision loss, Blind spots Ears, nose, mouth, throat: COMPLAINS OF: Hearing loss, DENIES: Running Nose Respiratory: DENIES: Cough, Shortness of breath Cardiovascular: DENIES: Lower Extremity Edema Gastrointestinal: COMPLAINS OF: Abdominal pain, Diarrhea Genitourinary: COMPLAINS OF: Urinary incontinence Integumentary: COMPLAINS OF: Abnormal pigmentation Hematologic/Lymphatics: COMPLAINS OF: Bruising Immunologic/Allergic: DENIES: Eczema Neurologic: COMPLAINS OF: Abnormal gait, Poor Balance, DENIES: Seizures Psychiatric: COMPLAINS OF: Anxiety, Agitation Other ROS: Limited ROS secondary to patient's clinical condition, confusion. ROS obtained from patient, patient's daughter and medical records. Past Family Social History Coded Allergies: No Known Allergies (Verified , 09/20/16) Past Medical History Depression COPD, O2 dependent CVA by history Diverticular disease Small bowel obstruction history GERD Hypertension Chronic Pain syndrome . Past Surgical History Abdominal surgery . Reported Medications Vitamin D3 (Cholecalciferol) 5,000 Unit Cap 5,000 Units PO DAILY Simvastatin 20 Mg Tab 20 Mg PO DAILY Ranitidine (Ranitidine HCl) 150 Mg Cap 75 Mg PO BID Percocet (Oxycodone-Acetaminophen) 5-325 mg Tab 1 Tab PO Q6H PRN Ditropan (Oxybutynin Chloride) 5 Mg Tab 5 Mg PO Q12HR Ocuvite (Multiple Vitamins W/ Minerals) 1 Tab 1 Tab PO DAILY Thera M Plus (Multivitamins/Minerals Therapeutic) 1 Tab 1 Tab PO DAILY Lisinopril 10 Mg Tab 10 Mg PO DAILY Gabapentin 400 Mg Cap 400 Cap PO HS Flomax (Tamsulosin HCl) 0.4 Mg Cap 0.4 Mg PO HS Fish Oil + D3 (Fish Oil-Cholecalciferol) 1,200-1,000 Mg-Unit Cap 1 Cap PO DAILY Ativan (Lorazepam) 1 Mg Tab 1 Mg PO Q4H PRN Aggrenox (Dipyridamole/Aspirin) 200-25 Mg Cap 1 Cap PO BID . Current Medications Medications (Trade) Dose Ordered Sig/Paulo Route Start Time Stop Time Status Last Admin (NS Flush) 2 ml BID IV FLUSH 04/11/17 09:00 04/14/17 21:18 (NS Flush) 2 ml UNSCH PRN IV FLUSH 04/11/17 07:30 (Aggrenox 200-25 Mg) 1 cap BID PO 04/11/17 09:00 04/18/17 08:59 04/15/17 09:20 (Pepcid) 10 mg BID PO 04/11/17 09:00 04/15/17 09:21 Pravastatin Sodium 40 mg 40 mg DAILY PO 04/11/17 09:00 04/15/17 09:22 (NS 1000 ml Inj) 1,000 ml @ 75 mls/hr [id number] IV 04/11/17 21:00 04/15/17 03:55 (Flomax) 0.4 mg HS PO 04/12/17 21:00 04/14/17 21:18 (Flagyl) 500 mg Q8HR PO 04/13/17 14:00 04/27/17 13:59 04/15/17 13:25 (Vasotec Inj) 1.25 mg Q6H PRN IV PUSH 04/13/17 16:15 04/13/17 16:27 (Plavix) 75 mg DAILY PO 04/15/17 09:00 04/15/17 09:27 (Colace) 100 mg DAILY PO 04/15/17 12:30 04/15/17 13:25 (risperDAL) 0.25 mg HS PO 04/15/17 21:00 (Prinivil) 20 mg DAILY PO 04/16/17 09:00 Family History Patient has 3 children are alive and well. . Substance Use Tobacco: Smokes 1 pack of cigarettes daily. Alcohol: None reported. Prescription med abuse: None reported. Illicits: None reported. . Psychosocial History Patient born and raised in [place]. , has 3 children. Daughter Chuyita in [place], another daughter in [place] and a son in [place]. 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 No service. . Spiritual/Cultural Factors Sikhism raji. . Living Will: Never completed Health Care Surrogate: Completed, but not made available Durable Power of Quiller Machine Fixer: Never completed Health Care Surrogate(s): [facility] daughter Chuyita Mota -pending copy of designation of healthcare surrogate. . Documented care wishes: No living will completed. Family/friends goals: No code. DNR/DNI. Continue conservative management short of no code with the goal of returning back to [facility] for long-term care. . Ethical and Legal Issues No ethical legal issues have been identified. . Physical Exam Vital Signs Date Time Temp Pulse Resp B/P Pulse Ox O2 Delivery O2 Flow Rate FiO2 04/15/17 11:31 98.2 58 20 172/77 95 04/15/17 10:35 64 04/15/17 04:00 97.3 65 19 143/71 91 04/15/17 00:25 98.4 69 20 166/79 91 04/14/17 23:16 70 04/14/17 19:39 97.0 71 20 173/97 91 04/14/17 16:02 98.2 118 18 179/81 94 04/14/17 04/15/17 19:00 07:00 Intake Total 755 ml 1202 ml Output Total 200 ml 200 ml Balance 555 ml 1002 ml Intake Oral 120 ml 20 ml IV Total 635 ml 1182 ml Output Urine Total 200 ml 200 ml # Voids 1 # Bowel Movements 0 0 Exam CONSTITUTIONAL/GENERAL: This is an adequately nourished elderly patient, in no apparent distress. TUBES/LINES/DRAINS: PIV's, bilateral soft wrist restraints. SKIN: No jaundice, rashes, or lesions. Ecchymoses on upper extremities. No wounds seen anteriorly. Skin temperature appropriate. Not diaphoretic. HEAD: Atraumatic. Normocephalic. EYES: No scleral icterus. No injection or drainage. ENT: Hearing grossly normal. Nose without bleeding or purulent drainage. Moist oral mucosa. NECK: Trachea midline. Supple, nontender. CARDIOVASCULAR: Regular rate and rhythm without murmurs, gallops, or rubs. No JVD. Peripheral pulses symmetric. RESPIRATORY/CHEST: Symmetric, unlabored respirations. Clear, diminished to auscultation. Breath sounds equal bilaterally. No wheezes, rales, or rhonchi. GASTROINTESTINAL: Abdomen soft, tender to touch, mildly distended. No guarding. Bowel sounds present. GENITOURINARY: Without palpable bladder distension. MUSCULOSKELETAL: Extremities without clubbing, cyanosis, or edema. NEUROLOGICAL: Awake and alert to self and place. Confused at times. Verbal but not always able to communicate needs secondary to confusion. Following some simple commands. PSYCHIATRIC: Appears calm. . Diagnostic Tests Laboratory Laboratory Tests Test 04/12/17 04/13/17 04/15/17 15:00 05:02 10:50 Stool C. difficile Toxin (PCR) POSITIVE (NEGATIVE) Stl C. difficile Toxin PRESUMPTIVE Epiderm 027 NEGATIVE (NEGATIVE) Sodium Level 138 MEQ/L 138 MEQ/L (136-145) (136-145) Potassium Level 3.7 MEQ/L 3.6 MEQ/L (3.5-5.1) (3.5-5.1) Chloride Level 104 MEQ/L 105 MEQ/L (98-107) (98-107) Carbon Dioxide Level 27.4 MEQ/L 24.5 MEQ/L (21.0-32.0) (21.0-32.0) Anion Gap 7 MEQ/L (5-15) 9 MEQ/L (5-15) Blood Urea Nitrogen 25 MG/DL (7-18) 18 MG/DL (7-18) Creatinine 1.11 MG/DL 0.99 MG/DL (0.60-1.30) (0.60-1.30) Estimat Glomerular Filtration 64 ML/MIN (>89) 73 ML/MIN (>89) Rate Random Glucose 83 MG/DL 97 MG/DL (74-106) (74-106) Calcium Level 8.7 MG/DL 8.4 MG/DL (8.5-10.1) (8.5-10.1) White Blood Count 7.6 TH/MM3 (4.0-11.0) Red Blood Count 4.78 MIL/MM3 (4.50-5.90) Hemoglobin 14.3 GM/DL (13.0-17.0) Hematocrit 44.4 % (39.0-51.0) Mean Corpuscular Volume 92.9 FL (80.0-100.0) Mean Corpuscular Hemoglobin 29.9 PG (27.0-34.0) Mean Corpuscular Hemoglobin 32.1 % Concent (32.0-36.0) Red Cell Distribution Width 13.8 % (11.6-17.2) Platelet Count 142 TH/MM3 (150-450) Mean Platelet Volume 8.9 FL (7.0-11.0) Result Diagram: 04/15/17 1050 04/15/17 1050 Microbiology Microbiology Date/Time Procedure Status Source Growth 04/12/17 15:00 - Final Complete Stool Stool NO ENTERIC PATHOGENS DETECTED BY PCR... Imaging Last Impressions Neck CTA 04/12/17 0000 Signed Impressions: Service Date/Time: Wednesday, April 12, 2017 15:59 - CONCLUSION: 1. Bulky calcified plaque at the origin of the left common carotid artery with resultant focal moderate to severe stenosis. No evidence for dissection as questioned. 2. Tenuous vertebral artery circulation with occluded left vertebral artery just beyond the origin and very small caliber right vertebral artery with likely tandem moderate stenoses at the origin and proximally. There is continuous flow from the right vertebral artery to the basilar artery with patent bilateral posterior commuting arteries. 3. Approximately 50%% stenosis of the proximal left internal carotid artery secondary to bulky calcified plaque. 4. No hemodynamically significant stenosis in the right carotid arteries. 5. Dilated proximal esophagus containing material. Clinical correlation is recommended. 6. Severe centrilobular emphysema in the lung apices. Tutu Sharma MD Neck Magnetic Resonance Angiography 04/11/17744 Signed Impressions: Service Date/Time: April 08:52 - CONCLUSION: Appearance worrisome for a possible intimal dissection involving the proximal left common carotid artery. Mild disease without significant stenosis at the carotid bifurcations bilaterally. Tenuous vertebral circulation as described. Further evaluation with CTA examination of the arch and carotids would be suggested. Murray Perrin MD Brain MRI 04/11/1745 Signed Impressions: Service Date/Time: April 08:52 - CONCLUSION: 1. Diffuse bilateral cortical atrophy and chronic white matter changes. 2. Multiple areas of old infarction are demonstrated and described above. These findings are stable compared to the prior CT scan of the brain. Brad Alston MD Head Magnetic Resonance Angiography 04/11/17 Signed Impressions: Service Date/Time: April 08:52 - CONCLUSION: 1. No evidence for large vessel occlusion, aneurysm, or vascular malformation involving the anterior situation. 2. Apparent occlusion of the distal right vertebral artery with small caliber left vertebral and small caliber basilar artery. The posterior communicating arteries are patent bilaterally. There is evidence for prior left cerebellar infarct indicating chronicity. Tutu Sharma MD Head CT 04/11/17 Signed Impressions: Service Date/Time: , April 11, 2017 06:02 - CONCLUSION: 1. Old infarcts. 2. No acute intracranial abnormality. Chan Delgadillo MD Cervical Spine CT 04/11/17 Signed Impressions: Service Date/Time: , April 11, 2017 06:02 - CONCLUSION: 1. Minimal anterolisthesis C3 on C4. 2. No fracture. Chan Delgadillo MD Patient/Family Conference Present at Family Conference: Daughter Chuyita Mota. Family Conference Time (mins): 35 Family Conference Location: Telephone Issues Discussed: * Palliative care role, purpose, approach * Additional medical, psychosocial, and spiritual history * Patients general health, functional status, and cognitive changes in the months leading up to the current hospitalization * Family understanding of the current medical problems -TIA, C. difficile, likely dementia with behavioral disturbances. Multiple chronic comorbidities. * Family understanding of prognosis -discussed likely trajectory of illness to include high risk for further complications, continue decline and . * Patients goals of care as best understood from advance directives and/or conversations and/or values * Current medical treatment options and benefits/burdens of those options * Questions answered to the best of my ability * Palliative care contact information provided * CODE STATUS * Hospice philosophy and benefits . Assessment and Plan Disease Oriented Problem List: (1) TIA (transient ischemic attack) (2) C. difficile diarrhea (3) Altered mental status Symptom Scale: (1) Pain 0-10 Scale: 0 Comment: History of chronic pain. (2) Agitation 0-10 Scale: 0 Comment: Likely secondary to dementia with behavioral disturbances. (3) Debility 0-10 Scale: Unable to quantify Comment: Progressive. Pertinent Non-Medical Issues Psychosocial: . Has 3 children. Originally from [place]. No service. Spiritual: Sikhism raji. Legal: Pending copy of designation of healthcare surrogate. Ethical issues impacting care: Patient unable to participate in medical decision -making, gregorio Boogie acting as HCS. . Important Contacts HCS/daughter Chuyita Mota . . Prognosis Mr. Camp is a 77-year-old male with a medical history of O2 dependent COPD, stroke, hypertension, chronic pain and GERD who presented to the ED via EMS on . Patient with TIA, C. difficile and likely dementia with behavioral disturbances. Patient has been a long-term resident of long term for the past 15 years. Patient at high risk of further complications, continue decline and . . Code Status: No Code Plan * CODE STATUS: Patient listed as full code. DNR signed by patient on 12/13/2003 found in records from prior admission. Confirmed DNR/DNI CODE STATUS with patient's daughter Chuyita. Changing code status to reflect patient's wishes. * HEALTHCARE DECISION MAKING: Patient unable to participate in medical decision- making secondary to clinical condition, confusion. Patient's daughter Chuyita Mota reports that she is the designated HCS, pending copy of documents from [facility]. * GOALS OF CARE: As per patient's daughter, goal of therapy at this time is to continue with conservative management short of no code with the goal to return patient back to his long-term facility -[facility]. Introduced hospice philosophy and benefits. Discussed the future role of hospice should patient's clinical condition continues to worsen or there is additional functional decline. Patient's daughter receptive to this. * SYMPTOMS: = Agitation, psychiatry consulted. Risperdal at bedtime, Seroquel has been discontinued. Psychiatry following. = Pain, history of chronic pain. Home regimen to include Percocet 3/325 mg Q6h PRN and gabapentin 400 mg at at bedtime. Palliative care recommends restarting home pain regimen once patient is more alert. = Debility, long term long-term resident for the past 15 years. Likely to continue to worsen. * Case discussed with bedside RN, bedside sitter and rn field case manager. * Palliative care contact information has been provided to patient's daughter Chuyita. * Palliative care will continue to follow-up for further clarifications of goals of care as patient's clinical course continues to evolve. . Time Spent Total Floor Time (mins): 65 (Total time to include review and summarization of available medical records to include prior hospitalizations and ED visits, physical exam, telephone conversation for goals of care with patient's daughter and case discussion with bedside RN and rn field case manager.) >50% Counseling/Coord of Care: Yes Thank you for the opportunity to participate in the care of Mr. Camp. Attestation To help prompt me to consider important information that might be impacting today's encounter and assessment, information from prior notes written by myself or my colleagues may have been "brought forward" into today's note. My signature on this note, however, is an attestation that I personally performed the exam, history, and/or decision-making noted today, and, unless otherwise indicated, the interactions with patient, family, and staff as well as the review of records all occurred today. I also attest that the listed assessment and stated plan reflect my best clinical judgment today based on the combination of historical information, prior notes, and today's exam/ interactions. When time spent is documented, it refers only to time spent today by the signer, or if indicated, combined time spent today by collaborating physician/nurse practitioner. Jada Smith Apr 15, 2017 15:36
[2017-04-15] MEDS ORDERED: risperiDONE 0.25 MG TAB PO SCH (21:00)
[2017-04-15] MEDS: TAMSULOSIN HCL 0.4 MG CAP PO SCH (21:59)
[2017-04-16] VITALS (10 sets, daily range): BP systolic 128–193; BP diastolic 76–87; PULSE 55–77; RESP 18–20; TEMP 96.7–99.4; O2SAT 92–95
[2017-04-16] MEDS: ENALAPRILAT 1.25 MG/ML VIAL IV PUSH PRN (01:18)
[2017-04-16] MEDS: metroNIDAZOLE 500 MG TAB PO SCH ×3 (05:25→21:41)
[2017-04-16] MEDS: SODIUM CHLOR 0.9% 1000 ML INJ 1,000 ML IV SCH ×2 (07:40→21:42)
[2017-04-16] MEDS: DIPYRIDAMOLE/ASPIRIN 200 MG/25 MG CAP PO SCH ×2 (08:38→21:41)
[2017-04-16] MEDS: PRAVASTATIN SOD 40 MG TAB PO SCH (08:38)
[2017-04-16] MEDS: LISINOPRIL 20 MG TAB PO SCH (08:39)
[2017-04-16] MEDS: DOCUSATE SODIUM 100 MG CAP PO SCH (08:39)
[2017-04-16] MEDS: FAMOTIDINE 20 MG TAB PO SCH ×2 (08:40→21:41)
[2017-04-16] MEDS: CLOPIDOGREL 75 MG TAB PO SCH (08:41)
[2017-04-16] MEDS: SODIUM CHLORIDE 0.9% FLUSH 5 ML FLUSH IV FLUSH SCH ×2 (08:54→21:00)
--- NOTE | 2017-04-16 10:48 | HHI.HCSW ---
Color Checker Roving Or Yarn Visit Advance Directive Mr. Camp reportedly has health care surrogate paperwork at facility where he resides. Left message with social service department at [facility] requesting copy. . Follow Up Visit Palliative care will continue to follow throughout hospitalization. Eboni Alcaraz MOTOR BLOCK MECHANIC, ELASTIC ASSEMBLER Apr 16, 2017 10:48
--- NOTE | 2017-04-16 10:50 | HHI.HCPN ---
Reason for visit a. To assist with evaluation and management of symptoms including: Debility. b. To assist medical decision maker(s) with: better understanding of current medical conditions; weighing benefits/burdens of medical treatment options; making medical treatment decisions. . Subjective/Interval History Mr. Camp is a 77-year-old male with a medical history of O2 dependent COPD, stroke, hypertension, chronic pain and GERD who presented to the ED via EMS on for evaluation of injuries secondary to mechanical fall. Upon arrival, patient was noted for left-sided facial droop, unclear if new onset or baseline secondary to prior CVA. Head CT negative for acute process, or infarcts noted. Likely TIA. Patient with active C. difficile infection. Psychiatry, Dr. Torres until following secondary to agitation. Patient has been declining/ refusing to work with physical therapy and has only been eating small amounts of food. Palliative care has been consulted for further clarifications of goals of care given chronic comorbidities, the likelihood of advanced dementia and treatment refusal. Patient seen in his room, he was resting in bed in no acute distress. Bilateral soft wrist restraints in place. Sitter at bedside. Patient restless at times, asking to be pulled up in bed. Alert to self, disoriented as to situation. Denies pain, shortness of breath or abdominal discomfort. Patient ate 50% of his breakfast and drank some ensure this morning. Ongoing calorie count at this time. He participated in physical therapy yesterday with passive range of motion. Patient with periods of restlessness. No new imaging or laboratory for review. . Family/friend interactions Follow-up telephone conversation with patient's daughter Chuyita Mota. Medical update provided. Reviewed decrease oral intake and ongoing calorie count. Discussed NG tube feedings versus PEG tube feedings. Reviewed that if patient is not meeting his calorie needs by oral intake, PEG tube placement might be offered. Reviewed benefits, risks and limitations of temp NG and permanent PEG given patient's clinical status. Daughter does not feel that a PEG tube or NG tube feeding would be in patient's best interest given his progressive illness. Discussed comfort feedings at that time and benefits of hospice involvement once patient is returned to [facility]. Daughter verbalized appreciation for my update today. Palliative care will continue to follow-up. . Advance Directives Living Will: Never completed Health Care Surrogate: Completed, but not made available Durable Power of Meal Room Hand: Never completed Advance Directive Specifics Health Care Surrogate(s): [facility] daughter Chuyita Mota -pending copy of designation of healthcare surrogate. . Documented care wishes: No living will completed. Significant change in goals: No code. DNR/DNI. Family electing to continue conservative management short of no code. Objective Vital Signs Date Time Temp Pulse Resp B/P Pulse Ox O2 Delivery O2 Flow Rate FiO2 04/16/17 08:00 97.5 55 18 169/87 94 04/16/17 06:02 96.7 77 20 93 04/16/17 05:38 170/78 04/16/17 00:17 96.7 58 20 182/86 95 04/15/17 23:33 75 04/15/17 19:45 96.9 84 20 179/83 92 04/15/17 15:40 95.6 61 20 176/85 93 04/15/17 11:31 98.2 58 20 172/77 95 04/15/17 10:35 64 Intake & Output 04/16/17 04/16/17 07:00 19:00 Intake Total 900 ml Output Total 200 ml Balance 700 ml IV Total 900 ml Output Urine Total 200 ml # Voids 3 # Bowel Movements 1 Physical Exam CONSTITUTIONAL/GENERAL: This is an adequately nourished elderly patient, in no apparent distress. TUBES/LINES/DRAINS: PIV's, bilateral soft wrist restraints. SKIN: No jaundice, rashes, or lesions. Ecchymoses on upper extremities. No wounds seen anteriorly. Large right periorbital ecchymosis. HEAD: Atraumatic. Normocephalic. EYES: No scleral icterus. No injection or drainage. ENT: Hearing grossly normal. Nose without bleeding or purulent drainage. Moist oral mucosa. NECK: Trachea midline. Supple, nontender. CARDIOVASCULAR: Regular rate and rhythm without murmurs, gallops, or rubs. No JVD. Peripheral pulses symmetric. RESPIRATORY/CHEST: Symmetric, unlabored respirations. Clear, diminished to auscultation. Breath sounds equal bilaterally. No wheezes, rales, or rhonchi. GASTROINTESTINAL: Abdomen soft, tender to touch, mildly distended. No guarding. Bowel sounds present. GENITOURINARY: Without palpable bladder distension. MUSCULOSKELETAL: Extremities without clubbing, cyanosis, or edema. NEUROLOGICAL: Awake and alert to self and place. Confused at times. Verbal but not always able to communicate needs secondary to confusion. Following some simple commands. PSYCHIATRIC: Restless at times. . Diagnostic Tests Laboratory Laboratory Tests Test 04/15/17 10:50 White Blood Count 7.6 TH/MM3 (4.0-11.0) Red Blood Count 4.78 MIL/MM3 (4.50-5.90) Hemoglobin 14.3 GM/DL (13.0-17.0) Hematocrit 44.4 % (39.0-51.0) Mean Corpuscular Volume 92.9 FL (80.0-100.0) Mean Corpuscular Hemoglobin 29.9 PG (27.0-34.0) Mean Corpuscular Hemoglobin 32.1 % Concent (32.0-36.0) Red Cell Distribution Width 13.8 % (11.6-17.2) Platelet Count 142 TH/MM3 (150-450) Mean Platelet Volume 8.9 FL (7.0-11.0) Sodium Level 138 MEQ/L (136-145) Potassium Level 3.6 MEQ/L (3.5-5.1) Chloride Level 105 MEQ/L (98-107) Carbon Dioxide Level 24.5 MEQ/L (21.0-32.0) Anion Gap 9 MEQ/L (5-15) Blood Urea Nitrogen 18 MG/DL (7-18) Creatinine 0.99 MG/DL (0.60-1.30) Estimat Glomerular Filtration 73 ML/MIN (>89) Rate Random Glucose 97 MG/DL (74-106) Calcium Level 8.4 MG/DL (8.5-10.1) Result Diagram: 04/15/17 1050 04/15/17 1050 Assessment and Plan Disease Oriented Problem List: (1) TIA (transient ischemic attack) (2) C. difficile diarrhea (3) Altered mental status Symptom Scale: (1) Pain 0-10 Scale: 0 Comment: History of chronic pain. (2) Agitation 0-10 Scale: 4 Comment: Likely secondary to dementia with behavioral disturbances. (3) Debility 0-10 Scale: Unable to quantify Comment: Progressive. Pertinent Non-Medical Issues Psychosocial: . Has 3 children. Originally from [place]. No service. Spiritual: [employer]. Legal: Pending copy of designation of healthcare surrogate. Ethical issues impacting care: Patient unable to participate in medical decision -making, daughter Chuyita acting as HCS. . Important Contacts HCS/daughter Chuyita Mota . . Prognosis Mr. Camp is a 77-year-old male with a medical history of O2 dependent COPD, stroke, hypertension, chronic pain and GERD who presented to the ED via EMS on . Patient with TIA, C. difficile and likely dementia with behavioral disturbances. Patient has been a [facility] for the past [facility]. Patient at high risk of further complications, continue decline and . . Code Status: No Code Plan * CODE STATUS: Patient listed as full code. DNR signed by patient on 12/13/2003 found in records from prior admission. Confirmed DNR/DNI CODE STATUS with patient's daughter Chuyita. Changing code status to reflect patient's wishes. * HEALTHCARE DECISION MAKING: Patient unable to participate in medical decision- making secondary to clinical condition, confusion. Patient's daughter Chuyita Mota reports that she is the designated HCS, pending copy of documents from [facility]. * GOALS OF CARE: As per patient's daughter, goal of therapy at this time is to continue with conservative management short of no code with the goal to return patient back to his long-term facility -[facility]. Introduced hospice philosophy and benefits. Discussed the future role of hospice should patient's clinical condition continues to worsen or there is additional functional decline. Patient's daughter receptive to this. Daughter does not feel that a PEG tube or NG tube feeding would be in patient's best interest given his progressive illness. Discussed comfort feedings and benefits of hospice involvement once patient is returned to [facility]. * 04/16/17 -Follow-up telephone conversation with patient's daughter Chuyita Mota. Medical update provided. Reviewed decrease oral intake and ongoing calorie count. Discussed NG tube feedings versus PEG tube feedings. Reviewed that if patient is not meeting his calorie needs by oral intake, PEG tube placement might be offered. Reviewed benefits, risks and limitations of temp NG and permanent PEG given patient's clinical status. Daughter does not feel that a PEG tube or NG tube feeding would be in patient's best interest given his progressive illness. Discussed comfort feedings at that time and benefits of hospice involvement once patient is returned to [facility]. * SYMPTOMS: = Agitation, psychiatry consulted. Risperdal at bedtime, Seroquel has been discontinued. Psychiatry following. Patient's daughter reports that patient is a heavy smoker, smoking at least a pack per day. This has been confirmed with [facility]. Palliative care recommends nicotine transdermal patch 21 mg every 24 hours. Nicotine withdrawal may be exacerbating patient's anxiety and agitation. = Pain, history of chronic pain. Home regimen to include Percocet 3/325 mg Q6h PRN and gabapentin 400 mg at at bedtime. Palliative care recommends restarting home pain regimen once patient is more alert. = Debility, [facility] long-term resident for the past 15 years. Likely to continue to worsen. * Case discussed with bedside sitter. * Palliative care contact information has been provided to patient's daughter Chuyita. * Palliative care will continue to follow-up for further clarifications of goals of care as patient's clinical course continues to evolve. . Time Spent Total Floor Time (mins): 38 (Total time to include review of medical records, physical exam, telephone conversation with patient's daughter Chuyita, and case discussion with bedside sitter.) >50% Counseling/Coord of Care: Yes Attestation To help prompt me to consider important information that might be impacting today's encounter and assessment, information from prior notes written by myself or my colleagues may have been "brought forward" into today's note. My signature on this note, however, is an attestation that I personally performed the exam, history, and/or decision-making noted today, and, unless otherwise indicated, the interactions with patient, family, and staff as well as the review of records all occurred today. I also attest that the listed assessment and stated plan reflect my best clinical judgment today based on the combination of historical information, prior notes, and today's exam/ interactions. When time spent is documented, it refers only to time spent today by the signer, or if indicated, combined time spent today by collaborating physician/nurse practitioner. Jada Smith Apr 16, 2017 10:50
[2017-04-16] MEDS: NICOTINE 21 MG/24 HR PATCH T-DERMAL SCH (13:08)
--- NOTE | 2017-04-16 13:38 | HHI.PR ---
Subjective Remarks Follow-up for TIA and dementia with agitation. Discussed with RN; stools have been formed, patient was agitated last night and early this morning, ate 50% of breakfast, BP still elevated, still in restraints. The patient has no acute complaints. He denies any pain. Objective Vitals Vital Signs Date Time Temp Pulse Resp B/P Pulse Ox O2 Delivery O2 Flow Rate FiO2 04/16/17 12:24 98.1 71 18 158/78 93 04/16/17 08:00 97.5 55 18 169/87 94 04/16/17 06:02 96.7 77 20 93 04/16/17 05:38 170/78 04/16/17 00:17 96.7 58 20 182/86 95 04/15/17 23:33 75 04/15/17 19:45 96.9 84 20 179/83 92 04/15/17 15:40 95.6 61 20 176/85 93 I/O 04/15/17 04/15/17 04/15/17 04/16/17 04/16/17 04/16/17 07:00 15:00 23:00 07:00 15:00 23:00 Intake Total 591 ml 815 ml 900 ml Output Total 200 ml 200 ml Balance 391 ml 815 ml 700 ml Intake Oral 20 ml 240 ml IV Total 571 ml 575 ml 900 ml Output Urine Total 200 ml 200 ml # Voids 1 1 3 # Bowel Movements 0 1 Result Diagram: 04/15/17 1050 04/15/17 1050 Imaging Last Impressions Neck CTA 04/12/17 0000 Signed Impressions: Service Date/Time: Wednesday, April 12, 2017 15:59 - CONCLUSION: 1. Bulky calcified plaque at the origin of the left common carotid artery with resultant focal moderate to severe stenosis. No evidence for dissection as questioned. 2. Tenuous vertebral artery circulation with occluded left vertebral artery just beyond the origin and very small caliber right vertebral artery with likely tandem moderate stenoses at the origin and proximally. There is continuous flow from the right vertebral artery to the basilar artery with patent bilateral posterior commuting arteries. 3. Approximately 50%% stenosis of the proximal left internal carotid artery secondary to bulky calcified plaque. 4. No hemodynamically significant stenosis in the right carotid arteries. 5. Dilated proximal esophagus containing material. Clinical correlation is recommended. 6. Severe centrilobular emphysema in the lung apices. Tutu Sharma MD Neck Magnetic Resonance Angiography 04/11/1745 Signed Impressions: Service Date/Time: April 08:52 - CONCLUSION: Appearance worrisome for a possible intimal dissection involving the proximal left common carotid artery. Mild disease without significant stenosis at the carotid bifurcations bilaterally. Tenuous vertebral circulation as described. Further evaluation with CTA examination of the arch and carotids would be suggested. Murray Perrin MD Brain MRI 04/11/1745 Signed Impressions: Service Date/Time: , April 11, 2017 08:52 - CONCLUSION: 1. Diffuse bilateral cortical atrophy and chronic white matter changes. 2. Multiple areas of old infarction are demonstrated and described above. These findings are stable compared to the prior CT scan of the brain. Brad Alston MD Head Magnetic Resonance Angiography 04/11/17 Signed Impressions: Service Date/Time: April 08:52 - CONCLUSION: 1. No evidence for large vessel occlusion, aneurysm, or vascular malformation involving the anterior situation. 2. Apparent occlusion of the distal right vertebral artery with small caliber left vertebral and small caliber basilar artery. The posterior communicating arteries are patent bilaterally. There is evidence for prior left cerebellar infarct indicating chronicity. Tutu Sharma MD Head CT 04/11/17 Signed Impressions: Service Date/Time: April 06:02 - CONCLUSION: 1. Old infarcts. 2. No acute intracranial abnormality. Chan Delgadillo MD Cervical Spine CT 04/11/17 Signed Impressions: Service Date/Time: , April 11, 2017 06:02 - CONCLUSION: 1. Minimal anterolisthesis C3 on C4. 2. No fracture. Chan Delgadillo MD Objective Remarks GENERAL: Well-developed fair-nourished. In no acute distress. SKIN: Warm and dry. No lesions noted. HEENT: Normocephalic. Pupils equal and round. Mucous membranes pink and moist. CARDIOVASCULAR: Regular rate and rhythm. No murmur appreciated. RESPIRATORY: No accessory muscle use. Clear to auscultation. Breath sounds equal bilaterally. GASTROINTESTINAL: Abdomen soft, non-tender, nondistended. Bowel sounds x4. MUSCULOSKELETAL: No obvious deformities. No clubbing or cyanosis. No edema. NEUROLOGICAL: Appears sleepy. Answers questions appropriately. Moves upper and lower extremities spontaneously. Normal speech. PSYCHIATRIC: Currently calm mood and flat affect; insight and judgment poor. Oriented to self. A/P Problem List: (1) TIA (transient ischemic attack) ICD Code: G45.9 Status: Acute (2) Closed head injury ICD Code: S09.90XA Status: Acute Assessment and Plan 77-year-old male from [facility] with history of CVA, HLD, HTN, COPD, chronic pain, depression, presents after a fall with possible facial droop, concern for TIA/CVA Closed head injury: secondary to fall from bed, reportedly hit head on oxygen tank -Head CT with no acute findings Transient ischemic attack: with possible facial droop upon arrival, now resolved. No TPA therapy initiated as patient's symptoms resolved -Continue with Aggrenox and statin. Neurology had a Plavix. -NIHSS, Neuro checks, Monitor on telemetry (although patient repeatedly removed telemetry) -PT/OT/ST evaluations -Lipid profile wnl and HgbA1c 6.1 -Head CT and Brain MRI showed evidence of old infarcts, no acute findings -Head MRA shows occlusion of distal right vertebral artery; otherwise unremarkable -Neck MRA shows possible intimal dissection proximal left common carotid artery; recommends neck CTA -Neck CTA showed no dissection however with focal 50% stenosis at origin of left common carotid secondary to bulky calcified plaque -EEG unremarkable -Echocardiogram with EF 55-60%, mild MR, tract AR, mild TR -Holter monitoring essentially unremarkable, sinus rhythm with PACs -Neurology consulted, appreciate recommendations, can d/c on Plavix C.Difficile Colitis: patient with 5 episodes of watery diarrhea on 04/12. Stools have improved. -C. difficile PCR positive -started on Flagyl 500mg q8h [id number] -monitor BMs Dementia with Agitation: requiring restraints and sitter, patient consistently refuses food but has been taking the medications today. -Psychiatry consulted, recommended Haldol as needed. Neurology discontinued Haldol. -Changed Seroquel to Risperdal with poor by mouth intake. Increase Risperdal dose. -consulted palliative care to assist with goals and food service manager planning, may be a hospice candidate -continue restraints prn and sitter at bedside for safety -Refusal to eat may be related to C-Diff. Consider Megace if no improvement. Checking calorie count, encouraged oral intake. -Palliative care consulted, patient's family would likely not want PEG tube. Considering hospice. -Continue IVF. Hypertension: Not well controlled. Increased lisinopril. Add amlodipine. Continue Flomax. Vasotec as needed. DVT prophylaxis: SCDs Discharge Planning Cleared by neurology for discharge. Discharge planning back to his SNF when behavior is better controlled. Piyush Jefferson Apr 16, 2017 13:38
[2017-04-16] MEDS ORDERED: ACETAMINOPHEN 325 MG TAB PO PRN (13:45)
[2017-04-16] MEDS: amLODIPine BESYLATE 5 MG TAB PO SCH (14:20)
[2017-04-16] MEDS ORDERED: HALOPERIDOL 0.5 MG TAB PO PRN (17:30)
[2017-04-16] MEDS: risperiDONE 0.5 MG TAB PO SCH (21:41)
[2017-04-16] MEDS: TAMSULOSIN HCL 0.4 MG CAP PO SCH (21:41)
[2017-04-17] VITALS (7 sets, daily range): BP systolic 152–160; BP diastolic 57–118; PULSE 67–112; RESP 17–20; TEMP 97–98.4; O2SAT 91–97
[2017-04-17] MEDS: metroNIDAZOLE 500 MG TAB PO SCH ×3 (05:35→21:07)
[2017-04-17] MEDS: REMOVE OLD PATCH T-DERMAL SCH (09:00)
[2017-04-17] MEDS: SODIUM CHLORIDE 0.9% FLUSH 5 ML FLUSH IV FLUSH SCH ×2 (09:00→21:08)
[2017-04-17] MEDS: amLODIPine BESYLATE 5 MG TAB PO SCH (09:28)
[2017-04-17] MEDS: NICOTINE 21 MG/24 HR PATCH T-DERMAL SCH (09:28)
[2017-04-17] MEDS: DOCUSATE SODIUM 100 MG CAP PO SCH (09:29)
[2017-04-17] MEDS: FAMOTIDINE 20 MG TAB PO SCH ×2 (09:29→21:07)
[2017-04-17] MEDS: CLOPIDOGREL 75 MG TAB PO SCH (09:29)
[2017-04-17] MEDS: PRAVASTATIN SOD 40 MG TAB PO SCH (09:29)
[2017-04-17] MEDS: LISINOPRIL 20 MG TAB PO SCH (09:29)
[2017-04-17] MEDS: DIPYRIDAMOLE/ASPIRIN 200 MG/25 MG CAP PO SCH ×2 (09:29→21:07)
--- NOTE | 2017-04-17 12:07 | HHI.HCPN ---
Reason for visit a. To assist with evaluation and management of symptoms including: Debility. b. To assist medical decision maker(s) with: better understanding of current medical conditions; weighing benefits/burdens of medical treatment options; making medical treatment decisions. . Subjective/Interval History Mr. Camp is a 77-year-old male with a medical history of O2 dependent COPD, stroke, hypertension, chronic pain and GERD who presented to the ED via EMS on for evaluation of injuries secondary to mechanical fall. Upon arrival, patient was noted for left-sided facial droop, unclear if new onset or baseline secondary to prior CVA. Head CT negative for acute process, or infarcts noted. Likely TIA. Patient with active C. difficile infection. Psychiatry, Dr. Torres until following secondary to agitation. Patient has been declining/ refusing to work with physical therapy and has only been eating small amounts of food. Palliative care has been consulted for further clarifications of goals of care given chronic comorbidities, the likelihood of advanced dementia and treatment refusal. Patient seen in his room, he was resting in bed in no acute distress. Bilateral soft wrist restraints in place. Patient sleeping, did not awake for my physical exam. Stable hemodynamically, tolerating room air, oxygen saturation in the mid to low 90s. Ongoing calorie count at this time, day #2. Patient reported eating 50% of breakfast yesterday and 75% of lunch. Has been seen by speech therapist, patient was placed on pured diet with thin liquids today. Patient was started on nicotine patch yesterday, Risperdal has been increased from 0.25 mg to 0.5 mg at at bedtime. No new imaging or laboratory for review. . Family/friend interactions Telephone conversation with patient's daughter Chuyita. Medical update provided. Reviewed ongoing calorie count, final results 04/19/17. Reviewed medication changes to include addition of nicotine patch and increase dose of Risperdal at bedtime. Reviewed that patient remains on antibiotic treatment for C. difficile infection. Goal of therapy remain unchanged, plan to discharge back to [facility] for long-term care once medically cleared. Discussed again the future role of hospice should patient's condition continues to worsen or additional functional decline. Daughter receptive to this. Palliative care to follow-up on 04/19/17. . Advance Directives Living Will: Copy in medical record Health Care Surrogate: Copy in medical record Durable Power of Water Systems Designer: Never completed Advance Directive Specifics Date completed: 06/08/2011. . Health Care Surrogate(s): HCS daughter Chuyita Mota . Documented care wishes: Living will with standard verbiage as it relates to terminal condition and life- prolonging measures. . Significant change in goals: Goals of care remains unchanged. Objective Vital Signs Date Time Temp Pulse Resp B/P Pulse Ox O2 Delivery O2 Flow Rate FiO2 04/17/17 08:02 97.0 112 20 160/57 91 04/17/17 04:30 97.9 67 19 158/70 95 04/17/17 00:00 98.4 91 19 158/90 91 04/16/17 23:00 77 04/16/17 20:00 99.4 74 20 128/87 92 04/16/17 17:13 170/76 04/16/17 16:00 98.2 74 18 193/78 94 04/16/17 12:24 98.1 71 18 158/78 93 Intake & Output 04/17/17 04/17/17 06:59 18:59 Intake Total 740 ml Balance 740 ml Intake Oral 240 ml IV Total 500 ml # Voids 2 # Bowel Movements 0 Physical Exam CONSTITUTIONAL/GENERAL: This is an adequately nourished elderly patient in no apparent distress. Sleeping. TUBES/LINES/DRAINS: PIV's, bilateral soft wrist restraints. SKIN: No jaundice, rashes, or lesions. Ecchymoses on upper extremities, right lower leg. No wounds seen anteriorly. Large right periorbital ecchymosis. HEAD: Atraumatic. Normocephalic. EYES: No scleral icterus. No injection or drainage. ENT: Hearing grossly normal. Nose without bleeding or purulent drainage. Moist oral mucosa. NECK: Trachea midline. Supple, nontender. CARDIOVASCULAR: Regular rate and rhythm without murmurs, gallops, or rubs. No JVD. Peripheral pulses symmetric. RESPIRATORY/CHEST: Symmetric, unlabored respirations. Clear, diminished to auscultation. Breath sounds equal bilaterally. No wheezes, rales, or rhonchi. GASTROINTESTINAL: Abdomen soft, tender to touch, mildly distended. No guarding. Bowel sounds present. GENITOURINARY: Without palpable bladder distension. MUSCULOSKELETAL: Extremities without clubbing, cyanosis, or edema. NEUROLOGICAL: Sleeping, did not awake for my exam. PSYCHIATRIC: Unable to evaluate, sleeping. Appears calm. . Diagnostic Tests Laboratory Laboratory Tests Test 04/15/17 10:50 White Blood Count 7.6 TH/MM3 (4.0-11.0) Red Blood Count 4.78 MIL/MM3 (4.50-5.90) Hemoglobin 14.3 GM/DL (13.0-17.0) Hematocrit 44.4 % (39.0-51.0) Mean Corpuscular Volume 92.9 FL (80.0-100.0) Mean Corpuscular Hemoglobin 29.9 PG (27.0-34.0) Mean Corpuscular Hemoglobin 32.1 % Concent (32.0-36.0) Red Cell Distribution Width 13.8 % (11.6-17.2) Platelet Count 142 TH/MM3 (150-450) Mean Platelet Volume 8.9 FL (7.0-11.0) Sodium Level 138 MEQ/L (136-145) Potassium Level 3.6 MEQ/L (3.5-5.1) Chloride Level 105 MEQ/L (98-107) Carbon Dioxide Level 24.5 MEQ/L (21.0-32.0) Anion Gap 9 MEQ/L (5-15) Blood Urea Nitrogen 18 MG/DL (7-18) Creatinine 0.99 MG/DL (0.60-1.30) Estimat Glomerular Filtration 73 ML/MIN (>89) Rate Random Glucose 97 MG/DL (74-106) Calcium Level 8.4 MG/DL (8.5-10.1) Result Diagram: 04/15/17 1050 04/15/17 1050 Assessment and Plan Disease Oriented Problem List: (1) TIA (transient ischemic attack) (2) C. difficile diarrhea (3) Altered mental status Symptom Scale: (1) Pain 0-10 Scale: Unable to quantify Comment: History of chronic pain. (2) Agitation 0-10 Scale: 0 Comment: Likely secondary to dementia with behavioral disturbances. (3) Debility 0-10 Scale: Unable to quantify Comment: Progressive. Pertinent Non-Medical Issues Psychosocial: . Has 3 children. Originally from [place]. No service. Spiritual: [employer]. Legal: Pending copy of designation of healthcare surrogate. Ethical issues impacting care: Patient unable to participate in medical decision -making, daughter Chuyita acting as HCS. . Important Contacts HCS/daughter Chuyita Mota . . Prognosis Mr. Camp is a 77-year-old male with a medical history of O2 dependent COPD, stroke, hypertension, chronic pain and GERD who presented to the ED via EMS on . Patient with TIA, C. difficile and likely dementia with behavioral disturbances. Patient has been a long-term resident of [facility] for the past 15 years. Patient at high risk of further complications, continue decline and . . Code Status: No Code Plan * CODE STATUS: No code. DNR/DNI. Community DNR in file. * HEALTHCARE DECISION MAKING: Patient unable to participate in medical decision- making secondary to clinical condition, confusion. Patient's daughter Chuyita Mota reports that she is the designated HCS, pending copy of documents from [facility]. * GOALS OF CARE: As per patient's daughter, goal of therapy at this time is to continue with conservative management short of NO code with the goal to return patient back to his long-term facility -[facility]. Discussed the future role of hospice should patient's clinical condition continues to worsen or there is additional functional decline. Patient's daughter receptive to this. Ongoing calorie count at this time, daughter does not feel that a PEG tube or NG tube feeding would be in patient's best interest given his progressive illness. Discussed comfort feedings and benefits of hospice involvement once patient is returned to [facility]. Palliative care to follow-up 04/19/17. * SYMPTOMS: = Agitation, psychiatry consulted. Risperdal at bedtime, Seroquel has been discontinued. Psychiatry following. Risperdal has been increased from 0.25 mg to 0.5 mg at at bedtime. Patient was placed on nicotine patch as previously recommended. Patient appears calm. = Pain, history of chronic pain. Home regimen to include Percocet 3/325 mg Q6h PRN and gabapentin 400 mg at at bedtime. Palliative care recommends restarting home pain regimen once patient is more alert. = Debility, [facility] long-term resident for the past 15 years. Likely to continue to worsen. * Case discussed with Dr. Driscoll. * Palliative care contact information has been provided to patient's daughter Chuyita. * Palliative care will continue to follow-up for further clarifications of goals of care as patient's clinical course continues to evolve. . Time Spent Total Floor Time (mins): 31 (Total time to include review and summarization of medical records, physical exam, telephone conversation with patient's daughter and case discussion with Dr. Driscoll. ) >50% Counseling/Coord of Care: Yes Attestation To help prompt me to consider important information that might be impacting today's encounter and assessment, information from prior notes written by myself or my colleagues may have been "brought forward" into today's note. My signature on this note, however, is an attestation that I personally performed the exam, history, and/or decision-making noted today, and, unless otherwise indicated, the interactions with patient, family, and staff as well as the review of records all occurred today. I also attest that the listed assessment and stated plan reflect my best clinical judgment today based on the combination of historical information, prior notes, and today's exam/ interactions. When time spent is documented, it refers only to time spent today by the signer, or if indicated, combined time spent today by collaborating physician/nurse practitioner. Jada Smith Apr 17, 2017 12:07
--- NOTE | 2017-04-17 14:54 | HHI.PR ---
Subjective Remarks Follow-up for TIA, dementia with agitation, and C.difficile colitis. Patient seen with nurse at bedside. Patient only ate a few bites of apple sauce for lunch then refused. Patient still agitated at times but slightly improved compared to yesterday. Nurse to attempt to wean off restraints. The patient continues to say "no" to all questions, even when asked if his name is Clement Camp, therefore review of systems is limited. The patient is noted to be coughing with upper airway congestion. Afebrile overnight. No reported BM yet today. Objective Vitals Vital Signs Date Time Temp Pulse Resp B/P Pulse Ox O2 Delivery O2 Flow Rate FiO2 04/17/17 12:14 97.7 68 17 152/78 91 04/17/17 08:02 97.0 112 20 160/57 91 04/17/17 04:30 97.9 67 19 158/70 95 04/17/17 00:00 98.4 91 19 158/90 91 04/16/17 23:00 77 04/16/17 20:00 99.4 74 20 128/87 92 04/16/17 17:13 170/76 04/16/17 16:00 98.2 74 18 193/78 94 I/O 04/16/17 04/16/17 04/16/17 04/17/17 04/17/17 04/17/17 07:00 15:00 23:00 07:00 15:00 23:00 Intake Total 900 ml 360 ml 240 ml 500 ml Output Total 200 ml Balance 700 ml 360 ml 240 ml 500 ml Intake Oral 360 ml 240 ml IV Total 900 ml 500 ml Output Urine Total 200 ml # Voids 3 4 1 1 # Bowel Movements 1 0 0 Result Diagram: 04/15/17 1050 04/15/17 1050 Imaging Last Impressions Neck CTA 04/12/17 0000 Signed Impressions: Service Date/Time: Wednesday, April 12, 2017 15:59 - CONCLUSION: 1. Bulky calcified plaque at the origin of the left common carotid artery with resultant focal moderate to severe stenosis. No evidence for dissection as questioned. 2. Tenuous vertebral artery circulation with occluded left vertebral artery just beyond the origin and very small caliber right vertebral artery with likely tandem moderate stenoses at the origin and proximally. There is continuous flow from the right vertebral artery to the basilar artery with patent bilateral posterior commuting arteries. 3. Approximately 50%% stenosis of the proximal left internal carotid artery secondary to bulky calcified plaque. 4. No hemodynamically significant stenosis in the right carotid arteries. 5. Dilated proximal esophagus containing material. Clinical correlation is recommended. 6. Severe centrilobular emphysema in the lung apices. Tutu Sharma MD Neck Magnetic Resonance Angiography 04/11/1745 Signed Impressions: Service Date/Time: April 08:52 - CONCLUSION: Appearance worrisome for a possible intimal dissection involving the proximal left common carotid artery. Mild disease without significant stenosis at the carotid bifurcations bilaterally. Tenuous vertebral circulation as described. Further evaluation with CTA examination of the arch and carotids would be suggested. Murray Perrin MD Brain MRI 04/11/17744 Signed Impressions: Service Date/Time: April 08:52 - CONCLUSION: 1. Diffuse bilateral cortical atrophy and chronic white matter changes. 2. Multiple areas of old infarction are demonstrated and described above. These findings are stable compared to the prior CT scan of the brain. Brad Alston MD Head Magnetic Resonance Angiography 04/11/17 Signed Impressions: Service Date/Time: April 08:52 - CONCLUSION: 1. No evidence for large vessel occlusion, aneurysm, or vascular malformation involving the anterior situation. 2. Apparent occlusion of the distal right vertebral artery with small caliber left vertebral and small caliber basilar artery. The posterior communicating arteries are patent bilaterally. There is evidence for prior left cerebellar infarct indicating chronicity. Tutu Sharma MD Head CT 04/11/17 Signed Impressions: Service Date/Time: April 06:02 - CONCLUSION: 1. Old infarcts. 2. No acute intracranial abnormality. Chan Delgadillo MD Cervical Spine CT 04/11/17 Signed Impressions: Service Date/Time: April 06:02 - CONCLUSION: 1. Minimal anterolisthesis C3 on C4. 2. No fracture. Chan Delgadillo MD Objective Remarks GENERAL: Well-nourished, well-developed elderly male patient in [employer]. SKIN: Warm and dry. No rash. HEENT: Normocephalic. Right Frontal head contusion/ecchymosis. Pupils equal and round. Mucous membranes pink and moist. NECK: Supple. Trachea midline. CARDIOVASCULAR: Regular rate and rhythm. S1, S2 noted. No murmur appreciated. RESPIRATORY: No accessory muscle use. Clear to auscultation. Breath sounds equal bilaterally. GASTROINTESTINAL: Abdomen soft, non-tender, nondistended. Normoactive bowel sounds x4. MUSCULOSKELETAL: No obvious deformities. Extremities without clubbing, cyanosis , or edema. NEUROLOGICAL: Awake and alert. No obvious cranial nerve deficits. Motor grossly within normal limits. 5/5 muscle strength in bilateral upper and lower extremities. Normal speech. PSYCHIATRIC: Slightly agitated mood; insight and judgment poor. Medications and IVs Current Medications Medications (Trade) Dose Ordered Sig/Paulo Route Start Time Stop Time Status Last Admin (NS Flush) 2 ml BID IV FLUSH 04/11/17 09:00 04/17/17 09:00 (NS Flush) 2 ml UNSCH PRN IV FLUSH 04/11/17 07:30 (Aggrenox 200-25 Mg) 1 cap BID PO 04/11/17 09:00 04/18/17 08:59 04/17/17 09:29 Pravastatin Sodium 40 mg 40 mg DAILY PO 04/11/17 09:00 04/17/17 09:29 (NS 1000 ml Inj) 1,000 ml @ 75 mls/hr [id number] IV 04/11/17 21:00 04/16/17 21:42 (Flomax) 0.4 mg HS PO 04/12/17 21:00 04/16/17 21:41 (Flagyl) 500 mg Q8HR PO 04/13/17 14:00 04/27/17 13:59 04/17/17 14:05 (Vasotec Inj) 1.25 mg Q6H PRN IV PUSH 04/13/17 16:15 04/16/17 01:18 (Plavix) 75 mg DAILY PO 04/15/17 09:00 04/17/17 09:29 (Colace) 100 mg DAILY PO 04/15/17 12:30 04/17/17 09:29 (Prinivil) 20 mg DAILY PO 04/16/17 09:00 04/17/17 09:29 (Pepcid) 20 mg BID PO 04/16/17 21:00 04/17/17 09:29 (Habitrol 21 Mg Patch.24 Hr) 1 patch DAILY T-DERMAL 04/16/17 12:00 04/17/17 09:28 Miscellaneous Information 1 DAILY T-DERMAL 04/17/17 09:00 04/17/17 09:00 (Norvasc) 5 mg DAILY PO 04/16/17 13:45 04/17/17 09:28 (Tylenol) 650 mg Q4H PRN PO 04/16/17 13:45 04/16/17 18:39 (risperDAL) 0.5 mg HS PO 04/16/17 21:00 04/16/17 21:41 (Haldol) 0.5 mg TID PRN PO 04/16/17 17:30 04/16/17 23:46 A/P Problem List: (1) TIA (transient ischemic attack) ICD Code: G45.9 Status: Acute (2) Closed head injury ICD Code: S09.90XA Status: Acute Assessment and Plan 77-year-old male from [facility] with history of CVA, HLD, HTN, COPD, chronic pain, depression, presents after a fall with possible facial droop, concern for TIA/CVA Closed head injury: secondary to fall from bed, reportedly hit head on oxygen tank -Head CT with no acute findings Transient ischemic attack: with possible facial droop upon arrival, now resolved. No TPA therapy initiated as patient's symptoms resolved -Continue with Aggrenox, statin, and neurology added Plavix. -NIHSS, Neuro checks, Monitor on telemetry (although patient repeatedly removed telemetry) -PT/OT/ST evaluations -Lipid profile wnl and HgbA1c 6.1 -Head CT and Brain MRI showed evidence of old infarcts, no acute findings -Head MRA shows occlusion of distal right vertebral artery; otherwise unremarkable -Neck MRA shows possible intimal dissection proximal left common carotid artery; recommends neck CTA -Neck CTA showed no dissection however with focal 50% stenosis at origin of left common carotid secondary to bulky calcified plaque -EEG unremarkable -Echocardiogram with EF 55-60%, mild MR, tract AR, mild TR -Holter monitoring essentially unremarkable, sinus rhythm with PACs -Neurology consulted, appreciate recommendations, can d/c on Plavix C.Difficile Colitis: patient with 5 episodes of watery diarrhea on 7/7. Stools have improved. -C. difficile PCR positive -started on Flagyl 500mg q8h [id number] -monitor BMs, much improved, only 1 BM yesterday Dementia with Agitation: requiring restraints and sitter, patient consistently refuses food but has been taking the medications today. -Psychiatry consulted, recommended Haldol as needed. Neurology discontinued Haldol. -Changed Seroquel to Risperdal with poor by mouth intake. Increase Risperdal dose. -consulted palliative care to assist with goals and post doctoral fellow planning, may be a hospice candidate -continue restraints prn and sitter at bedside for safety -Refusal to eat may be related to C-Diff. Consider Megace if no improvement. Checking calorie count, encouraged oral intake. -Palliative care consulted, patient's family would likely not want PEG tube. Considering hospice however plan for patient to return to SNF for retirement care for now. -Continue IVF. Hypertension: Not well controlled. -Increased lisinopril. -Added amlodipine, will increase to 10mg daily. -Vasotec as needed. Cough: patient noted to be coughing with some upper airway congestion -check CXR DVT prophylaxis: SCDs Discharge Planning Cleared by neurology for discharge. Discharge planning back to his SNF when behavior is better controlled and patient eating. Tamiko Villatoro PA-C Apr 17, 2017 2:54 pm
--- NOTE | 2017-04-17 19:11 | RADRPT ---
EXAM DATE/TIME: 04/17/2017 18:56 [facility] COMPARISON: No previous studies available for comparison. INDICATIONS : Cough. MEDICAL HISTORY : Chronic obstructive pulmonary disease. Hypertension. SURGICAL HISTORY : None. ENCOUNTER: Subsequent ACUITY: 2 days PAIN SCORE: Non-responsive. LOCATION: chest FINDINGS: Bibasilar consolidative changes are present in both lung bases suspicious for inflammatory process. The heart is minimally enlarged. Pulmonary vascularity is normal. The portion of the bony skeleton v isualized is unremarkable. CONCLUSION: Bibasilar consolidative changes. Bob Birch MD FACR on April 17, 2017 at 19:08 Board Certified Radiologist. This report was verified electronically.
[2017-04-17] MEDS: risperiDONE 0.5 MG TAB PO SCH (21:07)
[2017-04-17] MEDS: TAMSULOSIN HCL 0.4 MG CAP PO SCH (21:07)
[2017-04-17] MEDS: SODIUM CHLOR 0.9% 1000 ML INJ 1,000 ML IV SCH (23:28)
[2017-04-18] VITALS (7 sets, daily range): BP systolic 151–189; BP diastolic 72–88; PULSE 64–89; RESP 16–20; TEMP 97–98.9; O2SAT 90–95
[2017-04-18] MEDS: metroNIDAZOLE 500 MG TAB PO SCH ×3 (05:09→21:56)
[2017-04-18] MEDS: LISINOPRIL 20 MG TAB PO SCH (08:34)
[2017-04-18] MEDS: SODIUM CHLORIDE 0.9% FLUSH 5 ML FLUSH IV FLUSH SCH ×2 (08:35→21:56)
[2017-04-18] MEDS: PRAVASTATIN SOD 40 MG TAB PO SCH (08:35)
[2017-04-18] MEDS: amLODIPine BESYLATE 5 MG TAB PO SCH (08:35)
[2017-04-18] MEDS: CLOPIDOGREL 75 MG TAB PO SCH (08:35)
[2017-04-18] MEDS: FAMOTIDINE 20 MG TAB PO SCH ×2 (08:35→21:56)
[2017-04-18] MEDS: DOCUSATE SODIUM 100 MG CAP PO SCH (08:35)
[2017-04-18] MEDS: NICOTINE 21 MG/24 HR PATCH T-DERMAL SCH (09:00)
[2017-04-18] MEDS: REMOVE OLD PATCH T-DERMAL SCH (09:00)
--- NOTE | 2017-04-18 10:22 | HHI.PR ---
Subjective Remarks Follow up for TIA, dementia with agitation, Cdifficile colitis. The patient is sleeping this morning, awakens to light touch but still does not open eyes. Upon awakening, patient started coughing again, no sputum production. Moans to all questions, however when he was told I will check on him later, he states "ok ". Vital signs reviewed and stable. Objective Vitals Vital Signs Date Time Temp Pulse Resp B/P Pulse Ox O2 Delivery O2 Flow Rate FiO2 04/18/17 08:14 98.9 70 20 164/77 91 Manual Cuff/Auscultation 04/18/17 05:06 97.6 64 18 159/72 90 04/18/17 00:58 74 04/18/17 00:56 97.0 83 16 176/80 93 04/17/17 20:11 97.3 78 18 154/77 95 04/17/17 16:03 97.7 75 17 157/79 97 04/17/17 12:14 97.7 68 17 152/78 91 I/O 04/17/17 04/17/17 04/17/17 04/18/17 04/18/17 04/18/17 07:00 15:00 23:00 07:00 15:00 23:00 Intake Total 500 ml 800 ml 1080 ml Balance 500 ml 800 ml 1080 ml Intake Oral 800 ml 240 ml IV Total 500 ml 840 ml # Voids 1 2 2 # Bowel Movements 0 0 0 Result Diagram: 04/15/17 1050 04/15/17 1050 Imaging Last Impressions Chest X-Ray 04/17/17 0000 Signed Impressions: Service Date/Time: Monday, April 17, 2017 18:56 - CONCLUSION: Bibasilar consolidative changes. Bob Birch MD FACR Neck CTA 04/12/17 0000 Signed Impressions: Service Date/Time: Wednesday, April 12, 2017 15:59 - CONCLUSION: 1. Bulky calcified plaque at the origin of the left common carotid artery with resultant focal moderate to severe stenosis. No evidence for dissection as questioned. 2. Tenuous vertebral artery circulation with occluded left vertebral artery just beyond the origin and very small caliber right vertebral artery with likely tandem moderate stenoses at the origin and proximally. There is continuous flow from the right vertebral artery to the basilar artery with patent bilateral posterior commuting arteries. 3. Approximately 50%% stenosis of the proximal left internal carotid artery secondary to bulky calcified plaque. 4. No hemodynamically significant stenosis in the right carotid arteries. 5. Dilated proximal esophagus containing material. Clinical correlation is recommended. 6. Severe centrilobular emphysema in the lung apices. Tutu Sharma MD Neck Magnetic Resonance Angiography 04/11/1745 Signed Impressions: Service Date/Time: April 08:52 - CONCLUSION: Appearance worrisome for a possible intimal dissection involving the proximal left common carotid artery. Mild disease without significant stenosis at the carotid bifurcations bilaterally. Tenuous vertebral circulation as described. Further evaluation with CTA examination of the arch and carotids would be suggested. Murray Perrin MD Brain MRI 04/11/17744 Signed Impressions: Service Date/Time: , April 11, 2017 08:52 - CONCLUSION: 1. Diffuse bilateral cortical atrophy and chronic white matter changes. 2. Multiple areas of old infarction are demonstrated and described above. These findings are stable compared to the prior CT scan of the brain. Brad Alston MD Head Magnetic Resonance Angiography 04/11/17 Signed Impressions: Service Date/Time: April 08:52 - CONCLUSION: 1. No evidence for large vessel occlusion, aneurysm, or vascular malformation involving the anterior situation. 2. Apparent occlusion of the distal right vertebral artery with small caliber left vertebral and small caliber basilar artery. The posterior communicating arteries are patent bilaterally. There is evidence for prior left cerebellar infarct indicating chronicity. Tutu Sharma MD Head CT 04/11/17 Signed Impressions: Service Date/Time: April 06:02 - CONCLUSION: 1. Old infarcts. 2. No acute intracranial abnormality. Chan Delgadillo MD Cervical Spine CT 04/11/17 Signed Impressions: Service Date/Time: April 06:02 - CONCLUSION: 1. Minimal anterolisthesis C3 on C4. 2. No fracture. Chan Delgadillo MD Objective Remarks GENERAL: Well-nourished, well-developed elderly male patient in [facility]. SKIN: Warm and dry. No rash. HEENT: Normocephalic. Right Frontal head contusion/ecchymosis. Pupils equal and round. Mucous membranes pink and moist. NECK: Supple. Trachea midline. CARDIOVASCULAR: Regular rate and rhythm. S1, S2 noted. No murmur appreciated. RESPIRATORY: No accessory muscle use. Breath sounds equal bilaterally. GASTROINTESTINAL: Abdomen soft, non-tender, nondistended. Normoactive bowel sounds x4. MUSCULOSKELETAL: No obvious deformities. Extremities without clubbing, cyanosis , or edema. NEUROLOGICAL: Awake and alert. No obvious cranial nerve deficits. Motor grossly within normal limits. Normal speech. PSYCHIATRIC: Drowsy today; insight and judgment poor. Medications and IVs Current Medications Medications (Trade) Dose Ordered Sig/Paulo Route Start Time Stop Time Status Last Admin (NS Flush) 2 ml BID IV FLUSH 04/11/17 09:00 04/17/17 09:00 (NS Flush) 2 ml UNSCH PRN IV FLUSH 04/11/17 07:30 Pravastatin Sodium 40 mg 40 mg DAILY PO 04/11/17 09:00 04/18/17 08:35 (NS 1000 ml Inj) 1,000 ml @ 75 mls/hr [id number] IV 04/11/17 21:00 04/17/17 23:28 (Flomax) 0.4 mg HS PO 04/12/17 21:00 04/17/17 21:07 (Flagyl) 500 mg Q8HR PO 04/13/17 14:00 04/27/17 13:59 04/18/17 05:09 (Vasotec Inj) 1.25 mg Q6H PRN IV PUSH 04/13/17 16:15 04/16/17 01:18 (Plavix) 75 mg DAILY PO 04/15/17 09:00 04/18/17 08:35 (Colace) 100 mg DAILY PO 04/15/17 12:30 04/18/17 08:35 (Prinivil) 20 mg DAILY PO 04/16/17 09:00 04/18/17 08:34 (Pepcid) 20 mg BID PO 04/16/17 21:00 04/18/17 08:35 (Habitrol 21 Mg Patch.24 Hr) 1 patch DAILY T-DERMAL 04/16/17 12:00 04/18/17 09:00 Miscellaneous Information 1 DAILY T-DERMAL 04/17/17 09:00 04/18/17 09:00 (Tylenol) 650 mg Q4H PRN PO 04/16/17 13:45 04/16/17 18:39 (risperDAL) 0.5 mg HS PO 04/16/17 21:00 04/17/17 21:07 (Haldol) 0.5 mg TID PRN PO 04/16/17 17:30 04/16/17 23:46 (Norvasc) 10 mg DAILY PO 04/18/17 09:00 04/18/17 08:35 A/P Problem List: (1) TIA (transient ischemic attack) ICD Code: G45.9 Status: Acute (2) Closed head injury ICD Code: S09.90XA Status: Acute Assessment and Plan 77-year-old male from [facility] with history of CVA, HLD, HTN, COPD, chronic pain, depression, presents after a fall with possible facial droop, concern for TIA/CVA Closed head injury: secondary to fall from bed, reportedly hit head on oxygen tank -Head CT with no acute findings -04/18 patient with slightly worsening AMS, drowsiness, less communicative; with recent head injury and started on Plavix during this admission, will recheck Head CT today Transient ischemic attack: with possible facial droop upon arrival, now resolved. No TPA therapy initiated as patient's symptoms resolved -Continue with Aggrenox, statin, and neurology added Plavix. -NIHSS, Neuro checks, Monitor on telemetry (although patient repeatedly removed telemetry) -PT/OT/ST evaluations -Lipid profile wnl and HgbA1c 6.1 -Head CT and Brain MRI showed evidence of old infarcts, no acute findings -Head MRA shows occlusion of distal right vertebral artery; otherwise unremarkable -Neck MRA shows possible intimal dissection proximal left common carotid artery; recommends neck CTA -Neck CTA showed no dissection however with focal 50% stenosis at origin of left common carotid secondary to bulky calcified plaque -EEG unremarkable -Echocardiogram with EF 55-60%, mild MR, tract AR, mild TR -Holter monitoring essentially unremarkable, sinus rhythm with PACs -Neurology consulted, appreciate recommendations, can d/c on Plavix C.Difficile Colitis: patient with 5 episodes of watery diarrhea on 04/12. Stools have improved. -C. difficile PCR positive -started on Flagyl 500mg q8h [id number] -monitor BMs, much improved, only 1 BM yesterday Healthcare Associated Pneumonia: patient noted to be coughing with some upper airway congestion on 04/17 -checked CXR 04/17 which showed bibasilar consolidative changes -will start on antibiotics with IV Zosyn and Azithro -check blood cultures -awaiting CBC -resp for acapella Dementia with Agitation: requiring restraints and sitter, patient consistently refuses food but has been taking the medications today. -Psychiatry consulted, recommended Haldol as needed. Neurology discontinued Haldol. -Changed Seroquel to Risperdal with poor by mouth intake. Increase Risperdal dose. -consulted palliative care to assist with goals and intermediate planning, may be a hospice candidate -continue restraints prn and sitter at bedside for safety -Refusal to eat may be related to C-Diff. Consider Megace if no improvement. Checking calorie count, encouraged oral intake. -Palliative care consulted, patient's family would likely not want PEG tube. 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 -Continue IVF. Hypertension: Not well controlled. -Increased lisinopril. -Added amlodipine, increased to 10mg daily. -Vasotec as needed. DVT prophylaxis: SCDs Discussed with Dr. Driscoll. Discharge Planning Not yet ready for discharge. Diagnosed with HCAP today, started on IV antibiotics. Rechecking Head CT as patient without much improvement. Hopefully discharge back to SNF in 2-3days. Tamiko Villatoro PA-C Apr 18, 2017 10:22
[2017-04-18] MEDS ORDERED: AZITHROMYCIN INJ 500 MG in SODIUM CHLOR 0.9% 250 ML INJ 250 ML IV SCH (11:00)
--- NOTE | 2017-04-18 11:33 | RADRPT ---
EXAM DATE/TIME: 04/18/2017 11:15 [facility] COMPARISON: MRI BRAIN W & W/O CONTRAST, April 11, 2017, 8:52. CT BRAIN W/O CONTRAST, April 11, 2017, 6:02. INDICATIONS : Altered mental status. RADIATION DOSE: 56.38 CTDIvol (mGy) MEDICAL HISTORY : Cardiovascular disease. Cerebrovascular disease. Hypertension. SURGICAL HISTORY : None. ENCOUNTER: Initial ACUITY: 1 day PAIN SCALE: 0/10 LOCATION: cranial TECHNIQUE: Multiple contiguous axial images were obtained of the head. Using automated exposure control and adj ustment of the mA and/or kV according to patient size, radiation dose was kept as low as reasonably a chievable to obtain optimal diagnostic quality images. DICOM format image data is available electro nically for review and comparison. FINDINGS: There is no evidence for intracranial hemorrhage, mass effect, mass lesions, edema, or extra-axial fl uid collections. There are no signs of acute infarction for technique. The diffusion portion is unre markable. Moderate degree of brain atrophy is seen. Slight periventricular white matter changes are seen nonspecific mostly consistent with chronic small vessel ischemic changes. There are areas of enc ephalomalacia involving bilateral occipital lobes left cerebellar hemisphere and there are lacunar in farctions bilaterally in the basal ganglia chronic in nature. CONCLUSION: Stable chronic changes. Juan M Keller MD on April 18, 2017 at 11:29 Board Certified Radiologist. This report was verified electronically.
[2017-04-18] MEDS ORDERED: PIPERACIL-TAZO 4.5 GM PREMIX 100 ML IV SCH (12:00)
[2017-04-18] MEDS: SODIUM CHLOR 0.9% 1000 ML INJ 1,000 ML IV SCH (15:00)
[2017-04-18 15:08] LABS: AUTOMATED NEUTROPHIL # 6.5 TH/MM3 (1.8-7.7); BASOPHIL % 0.5 % (0.0-2.0); EOSINOPHIL # 0.1 TH/MM3 (0-0.4); EOSINOPHIL % 0.9 % (0.0-4.0); HEMATOCRIT 41.2 % (39.0-51.0); HEMO FLAGS DIFF FINAL; LYMPH % 14.6 % (9.0-44.0); LYMPHOCYTE # 1.2 TH/MM3 (1.0-4.8); MEAN CELL VOLUME 91.1 FL (80.0-100.0); MEAN CORPUSCULAR HEMOGLOBIN 30.5 PG (27.0-34.0); MEAN CORPUSCULAR HGB CONC 33.5 % (32.0-36.0); MONO % 6.8 % (0.0-8.0); NEUT % 77.2 % (16.0-70.0); PLATELET COUNT 154 TH/MM3 (150-450); RED BLOOD COUNT 4.52 MIL/MM3 (4.50-5.90); WHITE BLOOD COUNT 8.4 TH/MM3 (4.0-11.0)
[2017-04-18 15:19] LABS: BICARBONATE 25.7 MEQ/L (21.0-32.0); MAGNESIUM 1.8 MG/DL (1.5-2.5); POTASSIUM 4.1 MEQ/L (3.5-5.1)
[2017-04-18] MEDS: PIPERACIL-TAZO 4.5 GM PREMIX 100 ML IV SCH (21:56)
[2017-04-18] MEDS: risperiDONE 0.5 MG TAB PO SCH (21:56)
[2017-04-18] MEDS: TAMSULOSIN HCL 0.4 MG CAP PO SCH (21:56)
[2017-04-19] VITALS (9 sets, daily range): BP systolic 130–181; BP diastolic 69–86; PULSE 60–94; RESP 18–20; TEMP 96.1–97.8; O2SAT 90–98
[2017-04-19] MEDS: PIPERACIL-TAZO 4.5 GM PREMIX 100 ML IV SCH ×4 (02:23→22:36)
[2017-04-19] MEDS: SODIUM CHLOR 0.9% 1000 ML INJ 1,000 ML IV SCH ×2 (02:23→15:40)
[2017-04-19] MEDS: metroNIDAZOLE 500 MG TAB PO SCH ×3 (05:01→22:37)
[2017-04-19] MEDS ORDERED: VANCOMYCIN INJ 1,000 MG in SODIUM CHLOR 0.9% 250 ML INJ 250 ML IV SCH (09:00)
[2017-04-19] MEDS ORDERED: Vancomycin Consult Pharmacy 1 EA OTHER SCH (09:00)
[2017-04-19] MEDS: SODIUM CHLORIDE 0.9% FLUSH 5 ML FLUSH IV FLUSH SCH ×2 (09:00→21:00)
[2017-04-19] MEDS: REMOVE OLD PATCH T-DERMAL SCH (09:00)
[2017-04-19] MEDS: PRAVASTATIN SOD 40 MG TAB PO SCH (09:02)
[2017-04-19] MEDS: FAMOTIDINE 20 MG TAB PO SCH ×2 (09:02→22:37)
[2017-04-19] MEDS: CLOPIDOGREL 75 MG TAB PO SCH (09:02)
[2017-04-19] MEDS: LISINOPRIL 20 MG TAB PO SCH (09:03)
[2017-04-19] MEDS: amLODIPine BESYLATE 5 MG TAB PO SCH (09:03)
[2017-04-19] MEDS: NICOTINE 21 MG/24 HR PATCH T-DERMAL SCH (09:03)
--- NOTE | 2017-04-19 09:15 | HHI.PR ---
Subjective Remarks ctsp less responsive this am Objective Vital Signs Date Time Temp Pulse Resp B/P Pulse Ox O2 Delivery O2 Flow Rate FiO2 04/19/17 08:28 96.2 66 18 130/69 90 04/19/17 04:00 97.6 94 20 140/80 95 04/19/17 02:08 82 04/19/17 00:00 97.8 82 18 170/80 96 04/18/17 20:00 98.5 83 18 189/88 95 04/18/17 16:07 97.8 89 20 151/79 92 04/18/17 12:19 98.8 71 20 155/74 92 I/O 04/18/17 04/18/17 04/18/17 04/19/17 04/19/17 04/19/17 07:00 15:00 23:00 07:00 15:00 23:00 Intake Total 1080 ml 1080 ml 926 ml Balance 1080 ml 1080 ml 926 ml Intake Oral 240 ml 1080 ml IV Total 840 ml 926 ml # Voids 2 2 # Bowel Movements 0 0 Result Diagram: 04/18/17 1424 04/18/17 1424 Objective Remarks did say one word ow not talking eye s to r moves all ext well Assessment and Plan Assessment and Plan imp eeg neg no new cva bilat old occipital and cbllr cva no new cva creat nl mra cow pcomms strong bilat vb small throughout echo and holter neg he is on statin ldl nl the left cca stenosis appears asx and i would rx just plavix and statin ok dc back to [place] 04/19/17 some decompensation check abg mri eeg and dc sedatives i suspect he will bounce back Marv Christie MD Apr 19, 2017 09:15
--- NOTE | 2017-04-19 09:19 | HHI.PR ---
Subjective Remarks The patient was being fed breakfast. He was giving one-word responses. He did not seem to have any acute complaints. Discussed with nursing at the bedside. Objective Vitals Vital Signs Date Time Temp Pulse Resp B/P Pulse Ox O2 Delivery O2 Flow Rate FiO2 04/19/17 08:28 96.2 66 18 130/69 90 04/19/17 04:00 97.6 94 20 140/80 95 04/19/17 02:08 82 04/19/17 00:00 97.8 82 18 170/80 96 04/18/17 20:00 98.5 83 18 189/88 95 04/18/17 16:07 97.8 89 20 151/79 92 04/18/17 12:19 98.8 71 20 155/74 92 I/O 04/18/17 04/18/17 04/18/17 04/19/17 04/19/17 04/19/17 07:00 15:00 23:00 07:00 15:00 23:00 Intake Total 1080 ml 1080 ml 926 ml Balance 1080 ml 1080 ml 926 ml Intake Oral 240 ml 1080 ml IV Total 840 ml 926 ml # Voids 2 2 # Bowel Movements 0 0 Result Diagram: 04/18/17 1424 04/18/17 1424 Imaging Last Impressions Head CT 04/18/17 0000 Signed Impressions: Service Date/Time: April 11:15 - CONCLUSION: Stable chronic changes. K. Joaquín Keller MD Chest X-Ray 04/17/17 0000 Signed Impressions: Service Date/Time: Monday, April 17, 2017 18:56 - CONCLUSION: Bibasilar consolidative changes. Bob Birch MD FACR Neck CTA 04/12/17 0000 Signed Impressions: Service Date/Time: Wednesday, April 12, 2017 15:59 - CONCLUSION: 1. Bulky calcified plaque at the origin of the left common carotid artery with resultant focal moderate to severe stenosis. No evidence for dissection as questioned. 2. Tenuous vertebral artery circulation with occluded left vertebral artery just beyond the origin and very small caliber right vertebral artery with likely tandem moderate stenoses at the origin and proximally. There is continuous flow from the right vertebral artery to the basilar artery with patent bilateral posterior commuting arteries. 3. Approximately 50%% stenosis of the proximal left internal carotid artery secondary to bulky calcified plaque. 4. No hemodynamically significant stenosis in the right carotid arteries. 5. Dilated proximal esophagus containing material. Clinical correlation is recommended. 6. Severe centrilobular emphysema in the lung apices. Tutu Sharma MD Neck Magnetic Resonance Angiography 04/11/1745 Signed Impressions: Service Date/Time: April 08:52 - CONCLUSION: Appearance worrisome for a possible intimal dissection involving the proximal left common carotid artery. Mild disease without significant stenosis at the carotid bifurcations bilaterally. Tenuous vertebral circulation as described. Further evaluation with CTA examination of the arch and carotids would be suggested. Murray Perrin MD Brain MRI 04/11/1745 Signed Impressions: Service Date/Time: April 08:52 - CONCLUSION: 1. Diffuse bilateral cortical atrophy and chronic white matter changes. 2. Multiple areas of old infarction are demonstrated and described above. These findings are stable compared to the prior CT scan of the brain. Brad Alston MD Head Magnetic Resonance Angiography 04/11/17 0000 Signed Impressions: Service Date/Time: April 08:52 - CONCLUSION: 1. No evidence for large vessel occlusion, aneurysm, or vascular malformation involving the anterior situation. 2. Apparent occlusion of the distal right vertebral artery with small caliber left vertebral and small caliber basilar artery. The posterior communicating arteries are patent bilaterally. There is evidence for prior left cerebellar infarct indicating chronicity. Tutu Sharma MD Cervical Spine CT 04/11/17 0000 Signed Impressions: Service Date/Time: April 06:02 - CONCLUSION: 1. Minimal anterolisthesis C3 on C4. 2. No fracture. Chan Delgadillo MD Objective Remarks GENERAL: Elderly male patient, lethargic. SKIN: Warm and dry. No rash. HEENT: Normocephalic. Right Frontal head contusion/ecchymosis. Pupils equal and round. Mucous membranes pink and moist. NECK: Supple. Trachea midline. CARDIOVASCULAR: Regular rate and rhythm. S1, S2 noted. No murmur appreciated. RESPIRATORY: Diffuse coarse breath sounds. GASTROINTESTINAL: Abdomen soft, slightly tender, nondistended. Normoactive bowel sounds x4. MUSCULOSKELETAL: No obvious deformities. Extremities without clubbing, cyanosis , or edema. NEUROLOGICAL: Lethargic. No obvious cranial nerve deficits. Moving upper and lower extremities. PSYCHIATRIC: Insight and judgment poor. Medications and IVs Current Medications Medications (Trade) Dose Ordered Sig/Paulo Route Start Time Stop Time Status Last Admin (NS Flush) 2 ml BID IV FLUSH 04/11/17 09:00 04/17/17 09:00 (NS Flush) 2 ml UNSCH PRN IV FLUSH 04/11/17 07:30 Pravastatin Sodium 40 mg 40 mg DAILY PO 04/11/17 09:00 04/19/17 09:02 (NS 1000 ml Inj) 1,000 ml @ 75 mls/hr [id number] IV 04/11/17 21:00 04/19/17 02:23 (Flomax) 0.4 mg HS PO 04/12/17 21:00 04/18/17 21:56 (Flagyl) 500 mg Q8HR PO 04/13/17 14:00 04/27/17 13:59 04/19/17 05:01 (Vasotec Inj) 1.25 mg Q6H PRN IV PUSH 04/13/17 16:15 04/16/17 01:18 (Plavix) 75 mg DAILY PO 04/15/17 09:00 04/19/17 09:02 (Colace) 100 mg DAILY PO 04/15/17 12:30 Hold 04/18/17 08:35 (Prinivil) 20 mg DAILY PO 04/16/17 09:00 04/19/17 09:03 (Pepcid) 20 mg BID PO 04/16/17 21:00 04/19/17 09:02 (Habitrol 21 Mg Patch.24 Hr) 1 patch DAILY T-DERMAL 04/16/17 12:00 04/19/17 09:03 Miscellaneous Information 1 DAILY T-DERMAL 04/17/17 09:00 04/19/17 09:00 (Tylenol) 650 mg Q4H PRN PO 04/16/17 13:45 04/16/17 18:39 (risperDAL) 0.5 mg HS PO 04/16/17 21:00 Hold 04/18/17 21:56 (Haldol) 0.5 mg TID PRN PO 04/16/17 17:30 04/16/17 23:46 Amlodipine Besylate 10 mg 10 mg DAILY PO 04/18/17 09:00 04/19/17 09:03 Piperacillin Sod/ Tazobactam Sod 100 ml @ 200 mls/hr Q6H IV 04/18/17 21:00 04/19/17 02:23 Pharmacy Profile Note 0 ml @ 0 mls/hr UNSCH OTHER 04/19/17 09:00 (Vancomycin Inj/ NS 250 ml Inj) 250 ml @ 250 mls/hr Q12H IV 04/19/17 10:00 A/P Problem List: (1) TIA (transient ischemic attack) ICD Code: G45.9 Status: Acute (2) Closed head injury ICD Code: S09.90XA Status: Acute Assessment and Plan 77-year-old male from [facility] with history of CVA, HLD, HTN, COPD, chronic pain, depression, presents after a fall with possible facial droop, concern for TIA/CVA Closed head injury: secondary to fall from bed, reportedly hit head on oxygen tank -Head CT with no acute findings -04/18 patient with slightly worsening AMS, drowsiness, less communicative; with recent head injury and started on Plavix during this admission. Repeat CT brain unremarkable. Transient ischemic attack: with possible facial droop upon arrival, now resolved. No TPA therapy initiated as patient's symptoms resolved -Continue statin, neurology added Plavix. -NIHSS, Neuro checks, Monitor on telemetry -PT/OT/ST evaluations -Lipid profile wnl and HgbA1c 6.1 -Head CT and Brain MRI showed evidence of old infarcts, no acute findings -Head MRA shows occlusion of distal right vertebral artery; otherwise unremarkable -Neck MRA shows possible intimal dissection proximal left common carotid artery; recommends neck CTA -Neck CTA showed no dissection however with focal 50% stenosis at origin of left common carotid secondary to bulky calcified plaque -EEG unremarkable -Echocardiogram with EF 55-60%, mild MR, tract AR, mild TR -Holter monitoring essentially unremarkable, sinus rhythm with PACs -Neurology consulted, appreciate recommendations, can d/c on Plavix C.Difficile Colitis: Stools have improved. -C. difficile PCR positive -started on Flagyl 500mg q8h [id number] -monitor BMs, much improved Acute respiratory failure/ Healthcare Associated Pneumonia: patient noted to be coughing with some upper airway congestion -checked CXR 04/17 which showed bibasilar consolidative changes -will start on antibiotics with IV Zosyn and vancomycin -check blood cultures -awaiting CBC -resp for acapella -check ABG as last ABG showed CO2 retention. May benefit from BiPAP. Dementia with Agitation: requiring restraints and sitter, patient consistently refuses food but has been taking the medications today. -Psychiatry consulted, recommended Haldol as needed. Neurology discontinued Haldol. -Changed Seroquel to Risperdal with poor by mouth intake. Increase Risperdal dose. -consulted palliative care to assist with goals and long-term planning, may be a hospice candidate -continue restraints prn and sitter at bedside for safety -Refusal to eat may be related to C-Diff. Consider Megace if no improvement. Checking calorie count, encouraged oral intake. -Palliative care consulted, patient's family would likely not want PEG tube. Considering hospice however plan for patient to return to SNF for long-term care for now. Hypertension: Not well controlled. -Increased lisinopril. -Added amlodipine, increased to 10mg daily. -Vasotec as needed. DVT prophylaxis: Ed Becker DO Apr 19, 2017 09:19
[2017-04-19] MEDS ORDERED: VANCOMYCIN 1,000 MG/NS 250 ML IV SCH ×2 (10:00)
--- NOTE | 2017-04-19 10:12 | RADRPT ---
EXAM DATE/TIME: 04/19/2017 09:40 [facility] COMPARISON: CHEST SINGLE AP, April 17, 2017, 18:56. INDICATIONS : Patient is short of breath. MEDICAL HISTORY : Cardiovascular disease. Cerebrovascular disease. Hypertension. SURGICAL HISTORY : None. ENCOUNTER: Subsequent ACUITY: 1 week PAIN SCORE: Non-responsive. LOCATION: Bilateral chest FINDINGS: There is improvement in aeration of the lungs and right lung base consolidation has resolved with sli ght left lung base atelectasis and/or infiltrate remaining. The rest of the examination has not signi ficantly changed. CONCLUSION: Improvement in aeration of the lungs. Juan M Keller MD on April 19, 2017 at 10:09 Board Certified Radiologist. This report was verified electronically.
[2017-04-19 10:27] LABS: BLOOD GAS BASE EXCESS 1.3 mmol/L (-2-2); BLOOD GAS CARBOXYHEMOGLOBIN 1.9 % (0-4); BLOOD GAS HCO3 25 mmol/L (22-26); BLOOD GAS METHEMOGLOBIN 0.8 % (0-2); BLOOD GAS O2 HGB SATURATION 91 % (90-100); BLOOD GAS OXYGEN CONTENT 17.5 Vol % (12.0-20.0); BLOOD GAS PCO2 41 mmHg (38-42); BLOOD GAS PO2 67 mmHg (61-120); BLOOD GAS TOTAL HGB 13.7 G/DL (12.0-16.0); CRITICAL VALUE NO; FIO2 28 %; LITER FLOW 2 L/M; OXYGEN DEVICE NASAL CANNULA; TEMP CORR TO 98.6
[2017-04-19 10:28] LABS: DRAW SITE RT RADIAL; NUMBER OF ARTERIAL PUNCTURES 1; STAT NO; ULNAR PULSE PRESENT
[2017-04-19] MEDS: ENALAPRILAT 1.25 MG/ML VIAL IV PUSH PRN ×2 (12:13→18:48)
--- NOTE | 2017-04-19 13:58 | RADRPT ---
EXAM DATE/TIME: 04/19/2017 12:40 [facility] COMPARISON: MRA CAROTIDS W CONTRAST, April 11, 2017, 8:52. INDICATIONS : Decreased level of consciousness. MEDICAL HISTORY : CVA. SURGICAL HISTORY : Ulcer surgery. ENCOUNTER: Initial ACUITY: 1 day PAIN SCORE: 0/10 LOCATION: cranial TECHNIQUE: Multiplanar, multisequence MRI of the brain was performed without contrast. FINDINGS: The examination demonstrates sizable areas of cortical infarct involving the occipital cortex and the left cerebellar hemisphere. These are encephalomalacic. No acute areas of cortical infarct are seen. The inversion recovery images demonstrate increased T2 signal in the periventricular white matter mos t consistent with advanced microvascular ischemic demyelinative change. There is cortical atrophy. Th e ventricles are dilated in proportion to sulci or atrophy. No abnormal extra-axial fluid collections are identified. No findings to indicate acute intracranial hemorrhage are present. CONCLUSION: 1. Cortical atrophy and microvascular ischemic demyelinative change. 2. Large areas of infarct involving a occipital cortex and the left cerebellar hemisphere. No acute i nfarct is seen. Hi Birch MD on April 19, 2017 at 13:52 Board Certified Radiologist. This report was verified electronically.
--- NOTE | 2017-04-19 15:00 | MG ---
cc: GOLDEN MUKHERJEE Lab No: [id number] Date: 04/19/17 Age: 77 Sex: M Race: Fell out of bed, old stroke bilaterally. Diffuse 4 Hz slowing is noted. He has what almost appears to be triphasic type waves bilaterally. Some sharply contoured 300 milliseconds waves are noted bilaterally bifrontally predominant and they seem to improve somewhat towards the end of the recording. Photic stimulation was performed without significant posterior driving. IMPRESSION Looks more metabolic to me than seizure activity. No spikes are noted. Clinical correlation is needed. MD MARY Arrieta/JOSE ELIAS /2:36 PM /2:56 PM
--- NOTE | 2017-04-19 17:25 | HHI.HCPN ---
Reason for visit a. To assist with evaluation and management of symptoms including: Debility. b. To assist medical decision maker(s) with: better understanding of current medical conditions; weighing benefits/burdens of medical treatment options; making medical treatment decisions. . Subjective/Interval History Mr. Camp is a 77-year-old male with a medical history of O2 dependent COPD, stroke, hypertension, chronic pain and GERD who presented to the ED via EMS on for evaluation of injuries secondary to mechanical fall. Upon arrival, patient was noted for left-sided facial droop, unclear if new onset or baseline secondary to prior CVA. Head CT negative for acute process, or infarcts noted. Likely TIA. Patient with active C. difficile infection. Psychiatry, Dr. Torres until following secondary to agitation. Patient has been declining/ refusing to work with physical therapy and has only been eating small amounts of food. Palliative care has been consulted for further clarifications of goals of care given chronic comorbidities, the likelihood of advanced dementia and treatment refusal. Patient seen in his room, he was resting in bed in no acute distress. Off restraints at this time. Patient alert to self, confused as to place and situation. Following some simple commands such as "squeeze my hand". A febrile , hypertensive with SBP in the 140s to 180s. O2 via nasal cannula at 2 L, oxygen saturation in the mid 90s. Yesterday patient was found with slightly worsen AMS, drowsy and less communicative. Repeat CT of the brain with no acute process. Brain MRI 04/19/17 with no acute process seen, cortical atrophy and microvascular ischemic changes with large areas of infarct involving occipital cortex and the left cerebellar hemisphere -old stroke. EEG 04/19/17 with no seizure activity noted. Chest x-ray today showing improvement in aeration of the lungs. Case discussed with Dr. Driscoll. . Family/friend interactions Telephone conversation with patient's daughter Chuyita. Medical update provided. Daughter requesting for patient to be discharge to [facility] once medically clear. Goals of therapy remain unchanged, continuation of conservative management short of no code. No PEG tube or NG tube placement. Daughter amenable to hospice involvement once patient is discharge to long-term facility. Telephone conversation with [facility] liaison, she reports that they are willing to accept patient as soon as possible. Okay to return while undergoing C. difficile treatment. Discussed timing of hospice involvement. . Advance Directives Living Will: Copy in medical record Health Care Surrogate: Copy in medical record Durable Power of Flat Surfacer Jewel: Never completed Advance Directive Specifics Date completed: 06/08/2011. . Health Care Surrogate(s): HCS daughter Chuyita Mota . Documented care wishes: Living will with standard verbiage as it relates to terminal condition and life- prolonging measures. . Significant change in goals: Goals of care remain unchanged. . Objective Vital Signs Date Time Temp Pulse Resp B/P Pulse Ox O2 Delivery O2 Flow Rate FiO2 04/19/17 12:44 96.1 60 18 181/78 98 04/19/17 09:15 92 Nasal Cannula 2.00 04/19/17 08:28 96.2 66 18 130/69 90 04/19/17 07:00 79 04/19/17 04:00 97.6 94 20 140/80 95 04/19/17 02:08 82 04/19/17 00:00 97.8 82 18 170/80 96 04/18/17 20:00 98.5 83 18 189/88 95 Intake & Output 04/19/17 04/19/17 07:00 19:00 Intake Total 926 ml 240 ml Balance 926 ml 240 ml Intake Oral 240 ml IV Total 926 ml # Voids 1 Physical Exam CONSTITUTIONAL/GENERAL: This is an adequately nourished elderly patient in no apparent distress. TUBES/LINES/DRAINS: PIV's. SKIN: No jaundice, rashes, or lesions. Ecchymoses on upper extremities, right lower leg. No wounds seen anteriorly. Large right periorbital ecchymosis. HEAD: Atraumatic. Normocephalic. EYES: No scleral icterus. No injection or drainage. ENT: Hearing grossly normal. Nose without bleeding or purulent drainage. Moist oral mucosa. NECK: Trachea midline. Supple, nontender. CARDIOVASCULAR: Regular rate and rhythm without murmurs, gallops, or rubs. No JVD. Peripheral pulses symmetric. RESPIRATORY/CHEST: Symmetric, unlabored respirations. Clear, diminished to auscultation. Breath sounds equal bilaterally. No wheezes, rales, or rhonchi. GASTROINTESTINAL: Abdomen soft, tender to touch, mildly distended. No guarding. Bowel sounds present. GENITOURINARY: Without palpable bladder distension. MUSCULOSKELETAL: Extremities without clubbing, cyanosis, or edema. NEUROLOGICAL: Alert to self, disoriented as to place and situation. Following some simple commands such as "squeeze my hand". Verbal but not always able to communicate needs secondary to confusion. PSYCHIATRIC: Restless at times. Diagnostic Tests Laboratory Laboratory Tests Test 04/18/17 04/19/17 14:24 10:15 White Blood Count 8.4 TH/MM3 (4.0-11.0) Red Blood Count 4.52 MIL/MM3 (4.50-5.90) Hemoglobin 13.8 GM/DL (13.0-17.0) Hematocrit 41.2 % (39.0-51.0) Mean Corpuscular Volume 91.1 FL (80.0-100.0) Mean Corpuscular Hemoglobin 30.5 PG (27.0-34.0) Mean Corpuscular Hemoglobin 33.5 % Concent (32.0-36.0) Red Cell Distribution Width 14.0 % (11.6-17.2) Platelet Count 154 TH/MM3 (150-450) Mean Platelet Volume 8.6 FL (7.0-11.0) Neutrophils (%) (Auto) 77.2 % (16.0-70.0) Lymphocytes (%) (Auto) 14.6 % (9.0-44.0) Monocytes (%) (Auto) 6.8 % (0.0-8.0) Eosinophils (%) (Auto) 0.9 % (0.0-4.0) Basophils (%) (Auto) 0.5 % (0.0-2.0) Neutrophils # (Auto) 6.5 TH/MM3 (1.8-7.7) Lymphocytes # (Auto) 1.2 TH/MM3 (1.0-4.8) Monocytes # (Auto) 0.6 TH/MM3 (0-0.9) Eosinophils # (Auto) 0.1 TH/MM3 (0-0.4) Basophils # (Auto) 0.0 TH/MM3 (0-0.2) CBC Comment DIFF FINAL Differential Comment Sodium Level 133 MEQ/L (136-145) Potassium Level 4.1 MEQ/L (3.5-5.1) Chloride Level 99 MEQ/L (98-107) Carbon Dioxide Level 25.7 MEQ/L (21.0-32.0) Anion Gap 8 MEQ/L (5-15) Blood Urea Nitrogen 20 MG/DL (7-18) Creatinine 1.05 MG/DL (0.60-1.30) Estimat Glomerular Filtration 68 ML/MIN (>89) Rate Random Glucose 128 MG/DL (74-106) Calcium Level 8.4 MG/DL (8.5-10.1) Magnesium Level 1.8 MG/DL (1.5-2.5) Blood Gas Puncture Site RT RADIAL Blood Gas Patient Temperature 98.6 Blood Gas HCO3 25 mmol/L (22-26) Blood Gas Base Excess 1.3 mmol/L (-2-2) Blood Gas Oxygen Saturation 91 % (90-100) Arterial Blood pH 7.41 (7.380-7.420) Arterial Blood Partial 41 mmHg (38-42) Pressure CO2 Arterial Blood Partial 67 mmHg Pressure O2 (61-120) Arterial Blood Oxygen Content 17.5 Vol % (12.0-20.0) Arterial Blood 1.9 % (0-4) Carboxyhemoglobin Arterial Blood Methemoglobin 0.8 % (0-2) Blood Gas Hemoglobin 13.7 G/DL (12.0-16.0) Oxygen Delivery Device NASAL CANNULA Blood Gas Liter Flow 2 L/M Blood Gas Inspired Oxygen 28 % Result Diagram: 04/18/17 1424 04/18/17 1424 Microbiology Microbiology Date/Time Procedure Status Source Growth 04/18/17 14:20 Aerobic Blood Culture - Preliminary Resulted Blood Peripheral NO GROWTH IN 1 DAY 04/18/17 14:20 Anaerobic Blood Culture - Preliminary Resulted Blood Peripheral NO GROWTH IN 1 DAY 04/18/17 14:25 Aerobic Blood Culture - Preliminary Resulted Blood Peripheral NO GROWTH IN 1 DAY 04/18/17 14:25 Anaerobic Blood Culture - Preliminary Resulted Blood Peripheral NO GROWTH IN 1 DAY Imaging Last 48 hours Impressions Chest X-Ray 04/19/17 0000 Signed Impressions: Service Date/Time: Wednesday, April 19, 2017 09:40 - CONCLUSION: Improvement in aeration of the lungs. Juan M Keller MD Brain MRI 04/19/17 0000 Signed Impressions: Service Date/Time: Wednesday, April 19, 2017 12:40 - CONCLUSION: 1. Cortical atrophy and microvascular ischemic demyelinative change. 2. Large areas of infarct involving a occipital cortex and the left cerebellar hemisphere. No acute infarct is seen. Hi Birch MD Head CT 04/18/17 0000 Signed Impressions: Service Date/Time: April 11:15 - CONCLUSION: Stable chronic changes. KAnam Keller MD Assessment and Plan Disease Oriented Problem List: (1) TIA (transient ischemic attack) (2) C. difficile diarrhea (3) Altered mental status Symptom Scale: (1) Pain 0-10 Scale: Unable to quantify Comment: History of chronic pain. (2) Agitation 0-10 Scale: 0 Comment: Likely secondary to dementia with behavioral disturbances. (3) Debility 0-10 Scale: Unable to quantify Comment: Progressive. Pertinent Non-Medical Issues Psychosocial: . Has 3 children. Originally from [place]. No service. Spiritual: Confucianist raji. Legal: Pending copy of designation of healthcare surrogate. Ethical issues impacting care: Patient unable to participate in medical decision -making, daughter Chuyita acting as HCS. . Important Contacts HCS/daughter Chuyita Mota . . Prognosis Mr. Camp is a 77-year-old male with a medical history of O2 dependent COPD, stroke, hypertension, chronic pain and GERD who presented to the ED via EMS on . Patient with TIA, C. difficile and likely dementia with behavioral disturbances. Patient has been a long-term resident of longterm for the past 15 years. Patient at high risk of further complications, continue decline and . . Code Status: No Code Plan * CODE STATUS: No code. DNR/DNI. Community DNR in file. * HEALTHCARE DECISION MAKING: Patient unable to participate in medical decision- making secondary to clinical condition, confusion. Patient's daughter Chuyita Mota reports that she is the designated HCS, pending copy of documents from [facility]. * GOALS OF CARE: As per patient's daughter, goal of therapy at this time is to continue with conservative management short of NO code/NO peg/NO NG tube with the goal to return patient back to his long-term facility -[facility]. Discussed the future role of hospice should patient's clinical condition continues to worsen or there is additional functional decline. Patient's daughter receptive to this. * Telephone conversation with patient's daughter Chuyita. Medical update provided. Daughter requesting for patient to be discharge to [facility] once medically clear. Goals of therapy remain unchanged, continuation of conservative management short of no code. No PEG tube or NG tube placement. Daughter amenable to hospice involvement once patient is discharge back to long- term facility. Telephone conversation with [facility], she reports that they are willing to accept patient as soon as possible. Okay to return while undergoing C. difficile treatment. Discussed timing of hospice involvement. * SYMPTOMS: = Agitation, psychiatry consulted. Risperdal at bedtime, Seroquel has been discontinued. Psychiatry following. Risperdal has been increased from 0.25 mg to 0.5 mg at at bedtime. Patient was placed on nicotine patch as previously recommended. Patient appears calm. = Pain, history of chronic pain. Home regimen to include Percocet 3/325 mg Q6h PRN and gabapentin 400 mg at at bedtime. = Debility, longterm long-term resident for the past 15 years. Likely to continue to worsen. * Case discussed with Dr. Driscoll. * Palliative care contact information has been provided to patient's daughter Chuyita. * Palliative care will continue to follow-up for further clarifications of goals of care as patient's clinical course continues to evolve. . Time Spent Total Floor Time (mins): 36 (Total time to include review medical records, physical exam, telephone conversation with patient's daughter and Anna duran and case discussion with Dr. Driscoll.) >50% Counseling/Coord of Care: Yes Attestation To help prompt me to consider important information that might be impacting today's encounter and assessment, information from prior notes written by myself or my colleagues may have been "brought forward" into today's note. My signature on this note, however, is an attestation that I personally performed the exam, history, and/or decision-making noted today, and, unless otherwise indicated, the interactions with patient, family, and staff as well as the review of records all occurred today. I also attest that the listed assessment and stated plan reflect my best clinical judgment today based on the combination of historical information, prior notes, and today's exam/ interactions. When time spent is documented, it refers only to time spent today by the signer, or if indicated, combined time spent today by collaborating physician/nurse practitioner. Jada Smith Apr 19, 2017 17:24
[2017-04-19] MEDS: levETIRAcetam INJ 500 MG in SODIUM CHLORIDE 0.9% INJ 100 ML IV SCH ×2 (18:48→22:37)
[2017-04-19] MEDS: TAMSULOSIN HCL 0.4 MG CAP PO SCH (22:37)
[2017-04-20] VITALS (10 sets, daily range): BP systolic 132–180; BP diastolic 67–89; PULSE 67–93; RESP 18–23; TEMP 96.4–98.8; O2SAT 92–98
[2017-04-20] MEDS: PIPERACIL-TAZO 4.5 GM PREMIX 100 ML IV SCH ×4 (02:45→23:58)
[2017-04-20] MEDS: ENALAPRILAT 1.25 MG/ML VIAL IV PUSH PRN (06:00)
[2017-04-20] MEDS: SODIUM CHLOR 0.9% 1000 ML INJ 1,000 ML IV SCH ×2 (06:00→18:20)
[2017-04-20] MEDS: metroNIDAZOLE 500 MG TAB PO SCH ×3 (06:00→23:58)
[2017-04-20] MEDS: REMOVE OLD PATCH T-DERMAL SCH (09:00)
[2017-04-20] MEDS: SODIUM CHLORIDE 0.9% FLUSH 5 ML FLUSH IV FLUSH SCH ×2 (09:00→21:00)
[2017-04-20] MEDS: CLOPIDOGREL 75 MG TAB PO SCH (09:33)
[2017-04-20] MEDS: amLODIPine BESYLATE 5 MG TAB PO SCH (09:33)
[2017-04-20] MEDS: LISINOPRIL 20 MG TAB PO SCH (09:33)
[2017-04-20] MEDS: PRAVASTATIN SOD 40 MG TAB PO SCH (09:33)
[2017-04-20] MEDS: FAMOTIDINE 20 MG TAB PO SCH ×2 (09:33→23:58)
[2017-04-20] MEDS: levETIRAcetam INJ 500 MG in SODIUM CHLORIDE 0.9% INJ 100 ML IV SCH ×2 (09:34→23:57)
[2017-04-20] MEDS: NICOTINE 21 MG/24 HR PATCH T-DERMAL SCH (09:56)
[2017-04-20] MEDS: VANCOMYCIN INJ 1,250 MG in SODIUM CHLOR 0.9% 250 ML INJ 250 ML IV SCH (10:50)
--- NOTE | 2017-04-20 11:51 | HHI.PR ---
Subjective Remarks a little more alert not a lot this am Objective Vital Signs Date Time Temp Pulse Resp B/P Pulse Ox O2 Delivery O2 Flow Rate FiO2 04/20/17 11:44 96.7 75 18 163/79 92 04/20/17 09:24 98 Nasal Cannula 2.00 04/20/17 08:00 97.7 67 18 146/67 94 04/20/17 06:45 81 04/20/17 04:00 96.4 76 19 180/79 94 04/20/17 00:00 97.6 88 20 176/87 94 04/19/17 20:00 97.6 84 20 160/86 92 04/19/17 18:18 98 Nasal Cannula 2.00 04/19/17 12:44 96.1 60 18 181/78 98 I/O 04/19/17 04/19/17 04/19/17 04/20/17 04/20/17 04/20/17 07:00 15:00 23:00 07:00 15:00 23:00 Intake Total 926 ml 480 ml Balance 926 ml 480 ml Intake Oral 480 ml IV Total 926 ml # Voids 1 2 1 # Bowel Movements 0 0 Result Diagram: 04/18/17 1424 04/18/17 1424 Objective Remarks mumbles opens eyes to r Assessment and Plan Assessment and Plan imp eeg neg no new cva bilat old occipital and cbllr cva no new cva creat nl mra cow pcomms strong bilat vb small throughout echo and holter neg he is on statin ldl nl the left cca stenosis appears asx and i would rx just plavix and statin ok dc back to nh 04/19/17 some decompensation check abg mri eeg and dc sedatives i suspect he will bounce back 04/20/17 not much change mri nothing new eeg some triphasic like metabolic likey but i started keppra in case unwitnessed sz abg ok on abt should awaken slowwly as b4 Marv Christie MD Apr 20, 2017 11:51
--- NOTE | 2017-04-20 12:32 | HHI.PR ---
Subjective Remarks Follow-up for altered mental status. Discussed with RN, patient has been lethargic, otherwise no acute issues. The patient is somnolent this time and only responds to noxious stimuli. Objective Vitals Vital Signs Date Time Temp Pulse Resp B/P Pulse Ox O2 Delivery O2 Flow Rate FiO2 04/20/17 11:44 96.7 75 18 163/79 92 04/20/17 09:24 98 Nasal Cannula 2.00 04/20/17 08:00 97.7 67 18 146/67 94 04/20/17 06:45 81 04/20/17 04:00 96.4 76 19 180/79 94 04/20/17 00:00 97.6 88 20 176/87 94 04/19/17 20:00 97.6 84 20 160/86 92 04/19/17 18:18 98 Nasal Cannula 2.00 04/19/17 12:44 96.1 60 18 181/78 98 I/O 04/19/17 04/19/17 04/19/17 04/20/17 04/20/17 04/20/17 07:00 15:00 23:00 07:00 15:00 23:00 Intake Total 926 ml 480 ml Balance 926 ml 480 ml Intake Oral 480 ml IV Total 926 ml # Voids 1 2 1 # Bowel Movements 0 0 Result Diagram: 04/18/17 1424 04/18/17 1424 Imaging Last Impressions Chest X-Ray 04/19/17 0000 Signed Impressions: Service Date/Time: Wednesday, April 19, 2017 09:40 - CONCLUSION: Improvement in aeration of the lungs. Juan M Keller MD Brain MRI 04/19/17 0000 Signed Impressions: Service Date/Time: Wednesday, April 19, 2017 12:40 - CONCLUSION: 1. Cortical atrophy and microvascular ischemic demyelinative change. 2. Large areas of infarct involving a occipital cortex and the left cerebellar hemisphere. No acute infarct is seen. Hi Birch MD Head CT 04/18/17 0000 Signed Impressions: Service Date/Time: April 11:15 - CONCLUSION: Stable chronic changes. Juan M Keller MD Neck CTA 04/12/17 0000 Signed Impressions: Service Date/Time: Wednesday, April 12, 2017 15:59 - CONCLUSION: 1. Bulky calcified plaque at the origin of the left common carotid artery with resultant focal moderate to severe stenosis. No evidence for dissection as questioned. 2. Tenuous vertebral artery circulation with occluded left vertebral artery just beyond the origin and very small caliber right vertebral artery with likely tandem moderate stenoses at the origin and proximally. There is continuous flow from the right vertebral artery to the basilar artery with patent bilateral posterior commuting arteries. 3. Approximately 50%% stenosis of the proximal left internal carotid artery secondary to bulky calcified plaque. 4. No hemodynamically significant stenosis in the right carotid arteries. 5. Dilated proximal esophagus containing material. Clinical correlation is recommended. 6. Severe centrilobular emphysema in the lung apices. Tutu Sharma MD Neck Magnetic Resonance Angiography 04/11/17 0745 Signed Impressions: Service Date/Time: April 08:52 - CONCLUSION: Appearance worrisome for a possible intimal dissection involving the proximal left common carotid artery. Mild disease without significant stenosis at the carotid bifurcations bilaterally. Tenuous vertebral circulation as described. Further evaluation with CTA examination of the arch and carotids would be suggested. Murray Perrin MD Head Magnetic Resonance Angiography 04/11/17 0000 Signed Impressions: Service Date/Time: April 08:52 - CONCLUSION: 1. No evidence for large vessel occlusion, aneurysm, or vascular malformation involving the anterior situation. 2. Apparent occlusion of the distal right vertebral artery with small caliber left vertebral and small caliber basilar artery. The posterior communicating arteries are patent bilaterally. There is evidence for prior left cerebellar infarct indicating chronicity. Tutu Sharma MD Cervical Spine CT 04/11/17 0000 Signed Impressions: Service Date/Time: April 06:02 - CONCLUSION: 1. Minimal anterolisthesis C3 on C4. 2. No fracture. Chan Delgadillo MD Objective Remarks GENERAL: Well-developed fair-nourished. In no acute distress. SKIN: Warm and dry. No lesions noted. HEENT: Normocephalic. Pupils equal and round. Mucous membranes pink and moist. CARDIOVASCULAR: Regular rate and rhythm. No murmur appreciated. RESPIRATORY: No accessory muscle use. Coarse rhonchi. GASTROINTESTINAL: Abdomen soft, non-tender, nondistended. Bowel sounds x4. MUSCULOSKELETAL: No obvious deformities. No clubbing or cyanosis. No edema. NEUROLOGICAL: Somnolent. Moves upper and lower extremities. Currently nonverbal. A/P Problem List: (1) TIA (transient ischemic attack) ICD Code: G45.9 Status: Acute (2) Closed head injury ICD Code: S09.90XA Status: Acute Assessment and Plan 77-year-old male from [facility] with history of CVA, HLD, HTN, COPD, chronic pain, depression, presents after a fall with possible facial droop, concern for TIA/CVA Closed head injury: secondary to fall from bed, reportedly hit head on oxygen tank -Head CT with no acute findings -04/18 patient with slightly worsening AMS, drowsiness, less communicative; with recent head injury and started on Plavix during this admission. Repeat CT brain unremarkable. Transient ischemic attack: with possible facial droop upon arrival, now resolved. No TPA therapy initiated as patient's symptoms resolved -Continue statin, neurology added Plavix. -NIHSS, Neuro checks, Monitor on telemetry -PT/OT/ST evaluations -Lipid profile wnl and HgbA1c 6.1 -Head CT and Brain MRI showed evidence of old infarcts, no acute findings -Head MRA shows occlusion of distal right vertebral artery; otherwise unremarkable -Neck MRA shows possible intimal dissection proximal left common carotid artery; recommends neck CTA -Neck CTA showed no dissection however with focal 50% stenosis at origin of left common carotid secondary to bulky calcified plaque -EEG unremarkable -Echocardiogram with EF 55-60%, mild MR, tract AR, mild TR -Holter monitoring essentially unremarkable, sinus rhythm with PACs -Neurology consulted, appreciate recommendations, started on Plavix C.Difficile Colitis: Stools have improved. -C. difficile PCR positive -started on Flagyl 500mg q8h [id number] after other antibiotics stopped -monitor BMs, much improved Acute respiratory failure/ Healthcare Associated Pneumonia: patient noted to be coughing with some upper airway congestion -checked CXR 04/17 which showed bibasilar consolidative changes. Repeat chest x-ray 04/19 with improving aeration -Continue on antibiotics with IV Zosyn and vancomycin -Blood culture 04/18 with NGTD -resp for acapella -Repeat ABG 04/19 noted with improvement from previous Dementia with Agitation: -Psychiatry consulted, recommended Haldol as needed. Neurology discontinued Haldol. -Changed Seroquel to Risperdal with poor by mouth intake. Risperdal held with encephalopathy. -consulted palliative care to assist with goals and long-term planning, planned follow-up with hospice consultation as outpatient -continue restraints prn and sitter at bedside for safety -Refusal to eat may be related to C-Diff. Consider Megace if no improvement. Checked calorie count, encouraged oral intake. -Palliative care consulted, patient's family would likely not want PEG tube. Hypertension: Not well controlled. -Increase lisinopril. -Continue amlodipine and tamsulosin -Vasotec as needed. Acute encephalopathy: Suspect metabolic secondary to pneumonia vs underlying seizures. Possibly toxic with addition of antipsychotics for mood stabilization. -Continue antibiotics -Neurology started Keppra with possible underlying seizures -Repeat labs today DVT prophylaxis: SCDs D/W Piyush Daniels Apr 20, 2017 12:32
[2017-04-20] MEDS ORDERED: LISINOPRIL 10 MG TAB PO ONE (17:00)
[2017-04-20 19:20] LABS: AUTOMATED NEUTROPHIL # 6.3 TH/MM3 (1.8-7.7); BASOPHIL # 0.2 TH/MM3 (0-0.2); BASOPHIL % 2.8 % (0.0-2.0); EOSINOPHIL # 0.1 TH/MM3 (0-0.4); EOSINOPHIL % 1.6 % (0.0-4.0); HEMATOCRIT 40.8 % (39.0-51.0); HEMO FLAGS DIFF FINAL; LYMPH % 12.5 % (9.0-44.0); MEAN CELL VOLUME 92.1 FL (80.0-100.0); MEAN CORPUSCULAR HGB CONC 33.6 % (32.0-36.0); NEUT % 75.1 % (16.0-70.0); PLATELET COUNT 172 TH/MM3 (150-450); RED BLOOD COUNT 4.43 MIL/MM3 (4.50-5.90); RED CELL DISTRIBUTION WIDTH 14.5 % (11.6-17.2); WHITE BLOOD COUNT 8.3 TH/MM3 (4.0-11.0)
[2017-04-20 19:43] LABS: POTASSIUM 4.3 MEQ/L (3.5-5.1)
[2017-04-20] MEDS: TAMSULOSIN HCL 0.4 MG CAP PO SCH (23:58)
[2017-04-21] VITALS (9 sets, daily range): BP systolic 128–161; BP diastolic 68–88; PULSE 75–112; RESP 16–23; TEMP 97.2–98.7; O2SAT 90–98
[2017-04-21] MEDS: PIPERACIL-TAZO 4.5 GM PREMIX 100 ML IV SCH ×4 (02:53→21:37)
[2017-04-21] MEDS: metroNIDAZOLE 500 MG TAB PO SCH ×3 (06:59→21:45)
[2017-04-21] MEDS: SODIUM CHLOR 0.9% 1000 ML INJ 1,000 ML IV SCH (06:59)
[2017-04-21] MEDS: PRAVASTATIN SOD 40 MG TAB PO SCH (08:26)
[2017-04-21] MEDS: levETIRAcetam INJ 500 MG in SODIUM CHLORIDE 0.9% INJ 100 ML IV SCH ×2 (08:26→21:37)
[2017-04-21] MEDS: CLOPIDOGREL 75 MG TAB PO SCH (08:26)
[2017-04-21] MEDS: FAMOTIDINE 20 MG TAB PO SCH ×2 (08:26→21:00)
[2017-04-21] MEDS: amLODIPine BESYLATE 5 MG TAB PO SCH (08:26)
[2017-04-21] MEDS: LISINOPRIL 20 MG TAB PO SCH (08:26)
[2017-04-21] MEDS: NICOTINE 21 MG/24 HR PATCH T-DERMAL SCH (08:27)
[2017-04-21] MEDS: REMOVE OLD PATCH T-DERMAL SCH (08:27)
[2017-04-21] MEDS: SODIUM CHLORIDE 0.9% FLUSH 5 ML FLUSH IV FLUSH SCH ×2 (08:29→21:00)
--- NOTE | 2017-04-21 10:15 | HHI.PR ---
Subjective Remarks not any more alert now Objective Vital Signs Date Time Temp Pulse Resp B/P Pulse Ox O2 Delivery O2 Flow Rate FiO2 04/21/17 09:58 98 Nasal Cannula 2.00 04/21/17 08:00 98.4 110 18 159/71 94 04/21/17 07:40 75 04/21/17 06:00 97.2 84 21 128/80 94 04/21/17 00:20 98.0 94 23 130/88 95 04/20/17 22:00 98.8 93 23 132/89 94 04/20/17 19:16 Nasal Cannula 2.00 04/20/17 19:00 79 04/20/17 16:00 96.4 83 18 170/87 95 04/20/17 11:44 96.7 75 18 163/79 92 I/O 04/20/17 04/20/17 04/20/17 04/21/17 04/21/17 04/21/17 07:00 15:00 23:00 07:00 15:00 23:00 Intake Total 60 ml 0 ml 0 ml Balance 60 ml 0 ml 0 ml Intake Oral 60 ml 0 ml 0 ml # Voids 1 3 1 4 # Bowel Movements 0 0 0 0 Result Diagram: 04/20/17 1800 04/21/17 0708 Objective Remarks eyes to r still very lethargic arouses Assessment and Plan Assessment and Plan imp eeg neg no new cva bilat old occipital and cbllr cva no new cva creat nl mra cow pcomms strong bilat vb small throughout echo and holter neg he is on statin ldl nl the left cca stenosis appears asx and i would rx just plavix and statin ok dc back to [facility] 04/19/17 some decompensation check abg mri eeg and dc sedatives i suspect he will bounce back 04/20/17 not much change mri nothing new eeg some triphasic like metabolic likey but i started keppra in case unwitnessed sz abg ok on abt should awaken slowwly as b4 ---- 04/21/17 no change recheck eeg on keppra may be postictal? try a steroid dose see if wakes up keep na up Marv Christie MD Apr 21, 2017 10:15
[2017-04-21] MEDS: VANCOMYCIN INJ 1,250 MG in SODIUM CHLOR 0.9% 250 ML INJ 250 ML IV SCH (11:16)
--- NOTE | 2017-04-21 11:59 | HHI.PR ---
Subjective Remarks Follow up for AMS, HCAP. The patient was seen with [facility] [employer] at bedside, no reported diarrhea today, and upon review of EMR, no documented bowel movement since . The patient has his eyes closed, but mostly moans to all questions, did say "no" when asked if he was in pain. 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 No reported events overnight. Objective Vitals Vital Signs Date Time Temp Pulse Resp B/P Pulse Ox O2 Delivery O2 Flow Rate FiO2 04/21/17 09:58 98 Nasal Cannula 2.00 04/21/17 08:00 98.4 110 18 159/71 94 04/21/17 07:40 75 04/21/17 06:00 97.2 84 21 128/80 94 04/21/17 00:20 98.0 94 23 130/88 95 04/20/17 22:00 98.8 93 23 132/89 94 04/20/17 19:16 Nasal Cannula 2.00 04/20/17 19:00 79 04/20/17 16:00 96.4 83 18 170/87 95 I/O 04/20/17 04/20/17 04/20/17 04/21/17 04/21/17 04/21/17 07:00 15:00 23:00 07:00 15:00 23:00 Intake Total 60 ml 0 ml 0 ml Balance 60 ml 0 ml 0 ml Intake Oral 60 ml 0 ml 0 ml # Voids 1 3 1 4 # Bowel Movements 0 0 0 0 Result Diagram: 04/20/17 1800 04/21/17 0708 Imaging Last Impressions Chest X-Ray 04/19/17 0000 Signed Impressions: Service Date/Time: Wednesday, April 19, 2017 09:40 - CONCLUSION: Improvement in aeration of the lungs. Juan M Keller MD Brain MRI 04/19/17 0000 Signed Impressions: Service Date/Time: Wednesday, April 19, 2017 12:40 - CONCLUSION: 1. Cortical atrophy and microvascular ischemic demyelinative change. 2. Large areas of infarct involving a occipital cortex and the left cerebellar hemisphere. No acute infarct is seen. Hi Birch MD Head CT 04/18/17 0000 Signed Impressions: Service Date/Time: April 11:15 - CONCLUSION: Stable chronic changes. Juan M Keller MD Neck CTA 04/12/17 0000 Signed Impressions: Service Date/Time: Wednesday, April 12, 2017 15:59 - CONCLUSION: 1. Bulky calcified plaque at the origin of the left common carotid artery with resultant focal moderate to severe stenosis. No evidence for dissection as questioned. 2. Tenuous vertebral artery circulation with occluded left vertebral artery just beyond the origin and very small caliber right vertebral artery with likely tandem moderate stenoses at the origin and proximally. There is continuous flow from the right vertebral artery to the basilar artery with patent bilateral posterior commuting arteries. 3. Approximately 50%% stenosis of the proximal left internal carotid artery secondary to bulky calcified plaque. 4. No hemodynamically significant stenosis in the right carotid arteries. 5. Dilated proximal esophagus containing material. Clinical correlation is recommended. 6. Severe centrilobular emphysema in the lung apices. Tutu Sharma MD Neck Magnetic Resonance Angiography 04/11/17 0745 Signed Impressions: Service Date/Time: April 08:52 - CONCLUSION: Appearance worrisome for a possible intimal dissection involving the proximal left common carotid artery. Mild disease without significant stenosis at the carotid bifurcations bilaterally. Tenuous vertebral circulation as described. Further evaluation with CTA examination of the arch and carotids would be suggested. Murray Perrin MD Head Magnetic Resonance Angiography 04/11/17 0000 Signed Impressions: Service Date/Time: April 08:52 - CONCLUSION: 1. No evidence for large vessel occlusion, aneurysm, or vascular malformation involving the anterior situation. 2. Apparent occlusion of the distal right vertebral artery with small caliber left vertebral and small caliber basilar artery. The posterior communicating arteries are patent bilaterally. There is evidence for prior left cerebellar infarct indicating chronicity. Tutu Sharma MD Cervical Spine CT 04/11/17 0000 Signed Impressions: Service Date/Time: April 06:02 - CONCLUSION: 1. Minimal anterolisthesis C3 on C4. 2. No fracture. Chan Delgadillo MD Objective Remarks GENERAL: Well-nourished, well-developed elderly male patient in NAD. SKIN: Warm and dry. No rash. HEENT: Normocephalic. Right Frontal head contusion/ecchymosis. Mucous membranes pink and moist. NECK: Supple. Trachea midline. CARDIOVASCULAR: Regular rate and rhythm. S1, S2 noted. No murmur appreciated. RESPIRATORY: No accessory muscle use. Scattered rhonchi. Breath sounds equal bilaterally. GASTROINTESTINAL: Abdomen soft, non-tender, nondistended. Normoactive bowel sounds x4. MUSCULOSKELETAL: No obvious deformities. Extremities without clubbing, cyanosis , or edema. NEUROLOGICAL: Awake and alert. No obvious cranial nerve deficits. Motor grossly within normal limits. Mostly nonverbal, only moans. PSYCHIATRIC: Drowsy; insight and judgment poor. Medications and IVs Current Medications Medications (Trade) Dose Ordered Sig/Paulo Route Start Time Stop Time Status Last Admin (NS Flush) 2 ml BID IV FLUSH 04/11/17 09:00 04/20/17 21:00 (NS Flush) 2 ml UNSCH PRN IV FLUSH 04/11/17 07:30 Pravastatin Sodium 40 mg 40 mg DAILY PO 04/11/17 09:00 04/21/17 08:26 (NS 1000 ml Inj) 1,000 ml @ 75 mls/hr [id number] IV 04/11/17 21:00 04/21/17 06:59 (Flomax) 0.4 mg HS PO 04/12/17 21:00 04/20/17 23:58 (Flagyl) 500 mg Q8HR PO 04/13/17 14:00 04/27/17 13:59 04/21/17 06:59 (Vasotec Inj) 1.25 mg Q6H PRN IV PUSH 04/13/17 16:15 04/20/17 06:00 (Plavix) 75 mg DAILY PO 04/15/17 09:00 04/21/17 08:26 (Colace) 100 mg DAILY PO 04/15/17 12:30 Hold 04/18/17 08:35 (Pepcid) 20 mg BID PO 04/16/17 21:00 04/21/17 08:26 (Habitrol 21 Mg Patch.24 Hr) 1 patch DAILY T-DERMAL 04/16/17 12:00 04/21/17 08:27 Miscellaneous Information 1 DAILY T-DERMAL 04/17/17 09:00 04/21/17 08:27 (Tylenol) 650 mg Q4H PRN PO 04/16/17 13:45 04/16/17 18:39 Amlodipine Besylate 10 mg 10 mg DAILY PO 04/18/17 09:00 04/21/17 08:26 Piperacillin Sod/ Tazobactam Sod 100 ml @ 200 mls/hr Q6H IV 04/18/17 21:00 04/21/17 08:29 Pharmacy Profile Note 0 ml @ 0 mls/hr UNSCH OTHER 04/19/17 09:00 (Vancomycin Inj/ NS 250 ml Inj) 262.5 ml @ 262.5 mls/ hr Q24H IV 04/20/17 10:00 04/22/17 10:59 04/21/17 11:16 Miscellaneous Information SPECIFIC LAB TO BE JEREMY... ONCE ONCE .XX 04/22/17 09:45 04/22/17 09:46 (Keppra Inj/NS Inj) 105 ml @ 420 mls/hr Q12HR IV 04/19/17 16:15 04/21/17 08:26 Lisinopril 40 mg 40 mg DAILY PO 04/21/17 09:00 04/21/17 08:26 (SoluMEDROL INJ/ D5W 100 ml Inj) 116 ml @ 116 mls/hr ONCE IV 04/21/17 12:00 04/21/17 12:59 A/P Problem List: (1) TIA (transient ischemic attack) ICD Code: G45.9 Status: Acute (2) Closed head injury ICD Code: S09.90XA Status: Acute Assessment and Plan 77-year-old male from [facility] with history of CVA, HLD, HTN, COPD, chronic pain, depression, presents after a fall with possible facial droop, concern for TIA/CVA Closed head injury: secondary to fall from bed, reportedly hit head on oxygen tank -Head CT with no acute findings -04/18 patient with worsening AMS, drowsiness, less communicative; with recent head injury and started on Plavix during this admission. Repeat CT brain unremarkable. Transient ischemic attack: with possible facial droop upon arrival, now resolved. No TPA therapy initiated as patient's symptoms resolved -Continue statin, neurology added Plavix. -NIHSS, Neuro checks, Monitor on telemetry -PT/OT/ST evaluations -Lipid profile wnl and HgbA1c 6.1 -Head CT and Brain MRI showed evidence of old infarcts, no acute findings -Head MRA shows occlusion of distal right vertebral artery; otherwise unremarkable -Neck MRA shows possible intimal dissection proximal left common carotid artery; recommends neck CTA -Neck CTA showed no dissection however with focal 50% stenosis at origin of left common carotid secondary to bulky calcified plaque -EEG unremarkable -Echocardiogram with EF 55-60%, mild MR, tract AR, mild TR -Holter monitoring essentially unremarkable, sinus rhythm with PACs -Neurology consulted, appreciate recommendations, started on Plavix C.Difficile Colitis: Stools have improved. -C. difficile PCR positive -started on Flagyl 500mg q8h d53erol after other antibiotics stopped -monitor BMs, much improved although now no BM documented since 04/16 -check abdominal KUB xray today Healthcare Associated Pneumonia: patient noted to be coughing with upper airway congestion and rhonchi on exam -checked CXR 04/17 which showed bibasilar consolidative changes. Repeat chest x-ray 04/19 with improving aeration -Continue on antibiotics with IV Zosyn and vancomycin -Blood culture 04/18 with NGTD -resp for acapella -Repeat ABG 04/19 noted with improvement from previous Dementia with Agitation: -Psychiatry consulted, recommended Haldol as needed. Neurology discontinued Haldol. -Changed Seroquel to Risperdal with poor by mouth intake. Risperdal held with encephalopathy. 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 Consider Megace if no improvement. Checked calorie count, encouraged oral intake. -Palliative care consulted, patient's family would likely not want PEG tube. Hypertension: Not well controlled. -Increase lisinopril. -Continue amlodipine and tamsulosin -Vasotec as needed. Acute encephalopathy: Suspect metabolic secondary to pneumonia vs underlying seizures. Possibly toxic with addition of antipsychotics for mood stabilization. -Continue antibiotics -neurology on board, appreciate assistance -Neurology started Keppra with possible underlying seizures -Repeat labs reviewed, stable DVT prophylaxis: SCDs Discharge Planning Not yet ready for discharge. Patient still with encephalopathy, not much improvement. Hopefully discharge back to SNF in 2-3days if patient improves. Tamiko Villatoro PA-C Apr 21, 2017 11:59
[2017-04-21] MEDS ORDERED: methylPREDNISolone SO SUCC INJ 1,000 MG in DEXTROSE 5% IN WATER 100ML INJ 100 ML IV SCH ×2 (12:00)
[2017-04-21] MEDS ORDERED: SOD PHOSPHATE/SOD BIPHOSPHATE (ADULT) ENEMA 133ML PR ONE (14:00)
--- NOTE | 2017-04-21 15:15 | RADRPT ---
EXAM DATE/TIME: 04/21/2017 13:39 [facility] COMPARISON: No previous studies available for comparison. INDICATIONS : Ileus. MEDICAL HISTORY : Cardiovascular disease. Cerebrovascular disease. Hypertension. SURGICAL HISTORY : None. ENCOUNTER: Subsequent ACUITY: 2 weeks PAIN SCORE: Non-responsive. LOCATION: Bilateral abdomen. FINDINGS: Left basilar opacity is present may be due to a combination of consolidation and or pleural effusion. The bowel gas is nonspecific without any signs of obstruction or free air. There is atherosclerotic calcification of descending aorta and possibly a large aneurysm measuring 6.8 cm in size not adequate ly characterized. CONCLUSION: 1. Left basilar opacity is present may be due to a combination of consolidation and or pleural effusi on. 2. Possible huge AAA and CT examination of the abdomen and pelvis is suggested to further characteriz e could be done without intravenous contrast. Juan M Keller MD on April 21, 2017 at 15:11 Board Certified Radiologist. This report was verified electronically.
[2017-04-21] MEDS: TAMSULOSIN HCL 0.4 MG CAP PO SCH (21:00)
--- NOTE | 2017-04-21 21:51 | MG ---
cc: GOLDEN MUKHERJEE M.D. Lab No: Date: 04/21/2017 Age: Sex: M Race: ELECTROENCEPHALOGRAM NUMBER [id number] Hyperventilation not performed. Known bilateral occipital lobe infarcts, encephalopathy. Keppra. And certainly some slowing over the left posterior head region compared to the right at times. But no epileptiform or seizure activity is noted. Some muscle artifact is then seen. Some diffuse 5 Hz slowing is noted. At times some 4 Hz slowing is noted diffusely. No other major hemisphere asymmetries noted. Photic stimulation performed without significant posterior driving. No seizure activity is seen. IMPRESSION Some focal slowing on the left posterior head region but no seizure activity is noted. MD MARY Arrieta/KK /9:45 PM /9:53 PM
[2017-04-22] VITALS (8 sets, daily range): BP systolic 140–167; BP diastolic 67–84; PULSE 71–95; RESP 15–20; TEMP 97.3–98.6; O2SAT 91–98
[2017-04-22] MEDS: PIPERACIL-TAZO 4.5 GM PREMIX 100 ML IV SCH ×4 (02:45→21:04)
[2017-04-22] MEDS: metroNIDAZOLE 500 MG TAB PO SCH ×3 (05:54→20:56)
--- NOTE | 2017-04-22 07:52 | HHI.PR ---
Subjective Remarks not any more alert now Objective Vital Signs Date Time Temp Pulse Resp B/P Pulse Ox O2 Delivery O2 Flow Rate FiO2 04/22/17 04:00 97.3 71 18 144/72 91 04/22/17 01:03 97.9 95 18 167/84 98 04/21/17 23:30 110 04/21/17 20:33 98.5 99 18 161/78 98 04/21/17 16:00 98.5 112 20 149/82 94 04/21/17 12:00 98.7 102 16 145/68 90 04/21/17 09:58 98 Nasal Cannula 2.00 04/21/17 08:00 98.4 110 18 159/71 94 I/O 04/21/17 04/21/17 04/21/17 04/22/17 04/22/17 04/22/17 06:59 14:59 22:59 06:59 14:59 22:59 Intake Total 0 ml 580 ml 412 ml Balance 0 ml 580 ml 412 ml Intake Oral 0 ml 580 ml IV Total 412 ml # Voids 4 3 3 # Bowel Movements 0 0 Result Diagram: 04/20/17 1800 04/21/17 0708 Objective Remarks eyes to r still very lethargic arouses Assessment and Plan Assessment and Plan imp eeg neg no new cva bilat old occipital and cbllr cva no new cva creat nl mra cow pcomms strong bilat vb small throughout echo and holter neg he is on statin ldl nl the left cca stenosis appears asx and i would rx just plavix and statin ok dc back to nh 04/19/17 some decompensation check abg mri eeg and dc sedatives i suspect he will bounce back 04/20/17 not much change mri nothing new eeg some triphasic like metabolic likey but i started keppra in case unwitnessed sz abg ok on abt should awaken slowwly as b4 ---- 04/21/17 no change recheck eeg on keppra may be postictal? try a steroid dose see if wakes up keep na up 04/22/17 no better crp [address] chest and abd try ritalin and steroids eeg slow but better Marv Christie MD Apr 22, 2017 07:51
[2017-04-22] MEDS: REMOVE OLD PATCH T-DERMAL SCH (09:00)
[2017-04-22] MEDS ORDERED: PHARMACY ORDERED LAB ONE (09:45)
[2017-04-22] MEDS: levETIRAcetam INJ 500 MG in SODIUM CHLORIDE 0.9% INJ 100 ML IV SCH ×2 (10:07→20:56)
[2017-04-22] MEDS: CLOPIDOGREL 75 MG TAB PO SCH (10:07)
[2017-04-22] MEDS: FAMOTIDINE 20 MG TAB PO SCH ×2 (10:08→20:58)
[2017-04-22] MEDS: amLODIPine BESYLATE 5 MG TAB PO SCH (10:08)
[2017-04-22] MEDS: LISINOPRIL 20 MG TAB PO SCH (10:08)
[2017-04-22] MEDS: PRAVASTATIN SOD 40 MG TAB PO SCH (10:08)
[2017-04-22] MEDS: NICOTINE 21 MG/24 HR PATCH T-DERMAL SCH (10:11)
[2017-04-22] MEDS: SODIUM CHLORIDE 0.9% FLUSH 5 ML FLUSH IV FLUSH SCH ×2 (10:16→21:00)
--- NOTE | 2017-04-22 10:54 | HHI.HCPN ---
Reason for visit a. To assist with evaluation and management of symptoms including: Debility. b. To assist medical decision maker(s) with: better understanding of current medical conditions; weighing benefits/burdens of medical treatment options; making medical treatment decisions. . Subjective/Interval History Mr. Camp is a 77-year-old male with a medical history of O2 dependent COPD, stroke, hypertension, chronic pain and GERD who presented to the ED via EMS on for evaluation of injuries secondary to mechanical fall. Upon arrival, patient was noted for left-sided facial droop, unclear if new onset or baseline secondary to prior CVA. Head CT negative for acute process, or infarcts noted. Likely TIA. Patient with active C. difficile infection. Psychiatry, Dr. Torres until following secondary to agitation. Patient has been declining/ refusing to work with physical therapy and has only been eating small amounts of food. Palliative care has been consulted for further clarifications of goals of care given chronic comorbidities, the likelihood of advanced dementia and treatment refusal. Patient seen in his room, he was resting in bed in no acute distress. Patient alert to self, confused as to place and situation. Following some simple commands such as "squeeze my hand". Answering some simple questions with yes/ no answers. Denies pain or abdominal discomfort. A febrile, hypertensive with SBP in the 140s to 160s. O2 via nasal cannula at 2 L, oxygen saturation in the mid 90s. Neurology following, patient was given 1 dose of Solu-Medrol over the weekend and started on Ritalin to improve alertness. Abdomen x-ray showing left basilar opacity due to combination of consolidation and/or pleural effusion. Possible AAA, CT of abdomen and pelvis recommended. Most recent laboratory workup 04/20/17 showing WBC 8.3, Hgb 13.7, platelet count 172. Chem creatinine 0.89. Calorie count completed on 04/19/17, Becky, ensure an physician assistant surgery with feedings recommended. Case discussed with bedside RN. . Family/friend interactions Telephone conversation with patient's daughter Chuyita Mota. Medical update provided to include events over the weekend. Reviewed medication changes. Discuss that patient has not been cleared for discharge secondary to persistent AMS. Calorie count completed on 04/19/17, Placidoce, ensure an physician assistant surgery with feedings recommended. Goals of care remain unchanged, daughter electing for patient to return back to [facility] was medically clear. No PEG tube placement. . Advance Directives Living Will: Copy in medical record Health Care Surrogate: Copy in medical record Durable Power of Metallurgy Teacher: Never completed Advance Directive Specifics Date completed: 06/08/2011. . Health Care Surrogate(s): HCS daughter Chuyita Mota . Documented care wishes: Living will with standard verbiage as it relates to terminal condition and life- prolonging measures. . Significant change in goals: Goals of care remain unchanged. . Objective Vital Signs Date Time Temp Pulse Resp B/P Pulse Ox O2 Delivery O2 Flow Rate FiO2 04/22/17 08:00 97.5 72 16 165/81 95 04/22/17 04:00 97.3 71 18 144/72 91 04/22/17 01:03 97.9 95 18 167/84 98 04/21/17 23:30 110 04/21/17 20:33 98.5 99 18 161/78 98 04/21/17 16:00 98.5 112 20 149/82 94 04/21/17 12:00 98.7 102 16 145/68 90 Intake & Output 04/22/17 04/22/17 07:00 19:00 Intake Total 412 ml Balance 412 ml IV Total 412 ml # Voids 3 Physical Exam CONSTITUTIONAL/GENERAL: This is an adequately nourished elderly patient in no apparent distress. TUBES/LINES/DRAINS: PIV's. SKIN: No jaundice, rashes, or lesions. Ecchymoses on upper extremities, right lower leg. No wounds seen anteriorly. Large right periorbital ecchymosis. HEAD: Atraumatic. Normocephalic. EYES: No scleral icterus. No injection or drainage. ENT: Hearing grossly normal. Nose without bleeding or purulent drainage. Moist oral mucosa. NECK: Trachea midline. Supple, nontender. CARDIOVASCULAR: Regular rate and rhythm without murmurs, gallops, or rubs. No JVD. Peripheral pulses symmetric. RESPIRATORY/CHEST: Symmetric, unlabored respirations. Clear, diminished to auscultation. Breath sounds equal bilaterally. No wheezes, rales, or rhonchi. GASTROINTESTINAL: Abdomen soft, tender to touch, mildly distended. No guarding. Bowel sounds present. GENITOURINARY: Without palpable bladder distension. MUSCULOSKELETAL: Extremities without clubbing, cyanosis, or edema. NEUROLOGICAL: Alert to self, disoriented as to place and situation. Following some simple commands such as "squeeze my hand". Answering to "yes/no" questions. PSYCHIATRIC: Calm, sleepy. . Diagnostic Tests Laboratory Laboratory Tests Test 04/20/17 04/21/17 18:00 07:08 White Blood Count 8.3 TH/MM3 (4.0-11.0) Red Blood Count 4.43 MIL/MM3 (4.50-5.90) Hemoglobin 13.7 GM/DL (13.0-17.0) Hematocrit 40.8 % (39.0-51.0) Mean Corpuscular Volume 92.1 FL (80.0-100.0) Mean Corpuscular Hemoglobin 31.0 PG (27.0-34.0) Mean Corpuscular Hemoglobin 33.6 % Concent (32.0-36.0) Red Cell Distribution Width 14.5 % (11.6-17.2) Platelet Count 172 TH/MM3 (150-450) Mean Platelet Volume 8.9 FL (7.0-11.0) Neutrophils (%) (Auto) 75.1 % (16.0-70.0) Lymphocytes (%) (Auto) 12.5 % (9.0-44.0) Monocytes (%) (Auto) 8.0 % (0.0-8.0) Eosinophils (%) (Auto) 1.6 % (0.0-4.0) Basophils (%) (Auto) 2.8 % (0.0-2.0) Neutrophils # (Auto) 6.3 TH/MM3 (1.8-7.7) Lymphocytes # (Auto) 1.0 TH/MM3 (1.0-4.8) Monocytes # (Auto) 0.7 TH/MM3 (0-0.9) Eosinophils # (Auto) 0.1 TH/MM3 (0-0.4) Basophils # (Auto) 0.2 TH/MM3 (0-0.2) CBC Comment DIFF FINAL Differential Comment Sodium Level 132 MEQ/L (136-145) Potassium Level 4.3 MEQ/L (3.5-5.1) Chloride Level 98 MEQ/L (98-107) Carbon Dioxide Level 29.0 MEQ/L (21.0-32.0) Anion Gap 5 MEQ/L (5-15) Blood Urea Nitrogen 17 MG/DL (7-18) Creatinine 0.97 MG/DL 0.89 MG/DL (0.60-1.30) (0.60-1.30) Estimat Glomerular Filtration 75 ML/MIN (>89) 83 ML/MIN (>89) Rate Random Glucose 99 MG/DL (74-106) Calcium Level 8.5 MG/DL (8.5-10.1) C-Reactive Protein 5.40 MG/DL (0.00-0.30) Result Diagram: 04/20/17 1800 04/21/17 0708 Imaging Last 48 hours Impressions Abdomen X-Ray 04/21/17 0000 Signed Impressions: Service Date/Time: Friday, April 21, 2017 13:39 - CONCLUSION: 1. Left basilar opacity is present may be due to a combination of consolidation and or pleural effusion. 2. Possible huge AAA and CT examination of the abdomen and pelvis is suggested to further characterize could be done without intravenous contrast. Juan M Keller MD Assessment and Plan Disease Oriented Problem List: (1) TIA (transient ischemic attack) (2) C. difficile diarrhea (3) Altered mental status Symptom Scale: (1) Pain 0-10 Scale: Unable to quantify Comment: History of chronic pain. (2) Agitation 0-10 Scale: 0 Comment: Likely secondary to dementia with behavioral disturbances. (3) Debility 0-10 Scale: Unable to quantify Comment: Progressive. Pertinent Non-Medical Issues Psychosocial: . Has 3 children. Originally from [place]. No service. Spiritual: Hinduism raji. Legal: Pending copy of designation of healthcare surrogate. Ethical issues impacting care: Patient unable to participate in medical decision -making, daughter Chuyita acting as HCS. . Important Contacts HCS/daughter Chuyita Mota . . Prognosis Mr. Camp is a 77-year-old male with a medical history of O2 dependent COPD, stroke, hypertension, chronic pain and GERD who presented to the ED via EMS on . Patient with TIA, C. difficile and likely dementia with behavioral disturbances. Patient has been a [facility] the [facility]. Patient at high risk of further complications, continue decline and . . Code Status: No Code Plan * CODE STATUS: No code. DNR/DNI. Community DNR in file. * HEALTHCARE DECISION MAKING: Patient unable to participate in medical decision- making secondary to clinical condition, confusion. Patient's daughter Chuyita Mota reports that she is the designated HCS, pending copy of documents from [facility]. * GOALS OF CARE: 04/22/17 -As per patient's daughter, goal of therapy at this time is to continue with conservative management short of NO code/NO peg/NO NG tube with the goal to return patient back to his [facility] facility [facility]. Discussed the future role of hospice should patient's clinical condition continues to worsen or there is additional functional decline. Patient's daughter receptive to this. * SYMPTOMS: = Agitation, psychiatry consulted. Risperdal and Seroquel has been discontinued secondary to AMS. = Pain, history of chronic pain. Tylenol available as needed. = Debility, [facility] long-term resident for the past 15 years. = AMS: Patient was started on trial of Ritalin, neurology following. = Decreased appetite and oral intake: Calorie count completed on 04/19/17, Becky, Ensure an physician assistant surgery with feedings recommended. * Case discussed with bedside RN. * Palliative care contact information has been provided to patient's daughter Chuyita. * Palliative care will continue to follow-up for further clarifications of goals of care as patient's clinical course continues to evolve. . Time Spent Total Floor Time (mins): 31 (Total time to include review of medical records, physical exam, telephone conversation with patient's daughter, case discussion with bedside RN.) >50% Counseling/Coord of Care: Yes Attestation To help prompt me to consider important information that might be impacting today's encounter and assessment, information from prior notes written by myself or my colleagues may have been "brought forward" into today's note. My signature on this note, however, is an attestation that I personally performed the exam, history, and/or decision-making noted today, and, unless otherwise indicated, the interactions with patient, family, and staff as well as the review of records all occurred today. I also attest that the listed assessment and stated plan reflect my best clinical judgment today based on the combination of historical information, prior notes, and today's exam/ interactions. When time spent is documented, it refers only to time spent today by the signer, or if indicated, combined time spent today by collaborating physician/nurse practitioner. Jada Smith Apr 22, 2017 10:54
[2017-04-22] MEDS: METHYLPHENIDATE HCL 10 MG TAB PO SCH (11:30)
[2017-04-22] MEDS: VANCOMYCIN INJ 1,250 MG in SODIUM CHLOR 0.9% 250 ML INJ 250 ML IV SCH (12:25)
--- NOTE | 2017-04-22 13:47 | HHI.PR ---
Subjective Remarks The patient was about to try eating lunch with speech therapy. He would only wake up to say "no" and try to push me away when I examined him. Objective Vitals Vital Signs Date Time Temp Pulse Resp B/P Pulse Ox O2 Delivery O2 Flow Rate FiO2 04/22/17 11:41 75 04/22/17 11:16 95 Nasal Cannula 2.00 04/22/17 08:00 97.5 72 16 165/81 95 04/22/17 04:00 97.3 71 18 144/72 91 04/22/17 01:03 97.9 95 18 167/84 98 04/21/17 23:30 110 04/21/17 20:33 98.5 99 18 161/78 98 04/21/17 16:00 98.5 112 20 149/82 94 I/O 04/21/17 04/21/17 04/21/17 04/22/17 04/22/17 04/22/17 07:00 15:00 23:00 07:00 15:00 23:00 Intake Total 0 ml 580 ml 412 ml 262 ml Balance 0 ml 580 ml 412 ml 262 ml Intake Oral 0 ml 580 ml IV Total 412 ml 262 ml # Voids 4 3 3 # Bowel Movements 0 0 Result Diagram: 04/20/17 1800 04/22/17 0948 Imaging Last Impressions Abdomen X-Ray 04/21/17 0000 Signed Impressions: Service Date/Time: Friday, April 21, 2017 13:39 - CONCLUSION: 1. Left basilar opacity is present may be due to a combination of consolidation and or pleural effusion. 2. Possible huge AAA and CT examination of the abdomen and pelvis is suggested to further characterize could be done without intravenous contrast. Juan M Keller MD Chest X-Ray 04/19/17 0000 Signed Impressions: Service Date/Time: Wednesday, April 19, 2017 09:40 - CONCLUSION: Improvement in aeration of the lungs. Juan M Keller MD Brain MRI 04/19/17 0000 Signed Impressions: Service Date/Time: Wednesday, April 19, 2017 12:40 - CONCLUSION: 1. Cortical atrophy and microvascular ischemic demyelinative change. 2. Large areas of infarct involving a occipital cortex and the left cerebellar hemisphere. No acute infarct is seen. Hi Birch MD Head CT 7/13/17 0000 Signed Impressions: Service Date/Time: April 11:15 - CONCLUSION: Stable chronic changes. K. Joaquín Keller MD Neck CTA 04/12/17 Signed Impressions: Service Date/Time: Wednesday, April 12, 2017 15:59 - CONCLUSION: 1. Bulky calcified plaque at the origin of the left common carotid artery with resultant focal moderate to severe stenosis. No evidence for dissection as questioned. 2. Tenuous vertebral artery circulation with occluded left vertebral artery just beyond the origin and very small caliber right vertebral artery with likely tandem moderate stenoses at the origin and proximally. There is continuous flow from the right vertebral artery to the basilar artery with patent bilateral posterior commuting arteries. 3. Approximately 50%% stenosis of the proximal left internal carotid artery secondary to bulky calcified plaque. 4. No hemodynamically significant stenosis in the right carotid arteries. 5. Dilated proximal esophagus containing material. Clinical correlation is recommended. 6. Severe centrilobular emphysema in the lung apices. Tutu Sharma MD Neck Magnetic Resonance Angiography 04/11/17 0745 Signed Impressions: Service Date/Time: April 08:52 - CONCLUSION: Appearance worrisome for a possible intimal dissection involving the proximal left common carotid artery. Mild disease without significant stenosis at the carotid bifurcations bilaterally. Tenuous vertebral circulation as described. Further evaluation with CTA examination of the arch and carotids would be suggested. Murray Perrin MD Head Magnetic Resonance Angiography 04/11/17 Signed Impressions: Service Date/Time: April 08:52 - CONCLUSION: 1. No evidence for large vessel occlusion, aneurysm, or vascular malformation involving the anterior situation. 2. Apparent occlusion of the distal right vertebral artery with small caliber left vertebral and small caliber basilar artery. The posterior communicating arteries are patent bilaterally. There is evidence for prior left cerebellar infarct indicating chronicity. Tutu Sharma MD Cervical Spine CT 04/11/17 Signed Impressions: Service Date/Time: April 06:02 - CONCLUSION: 1. Minimal anterolisthesis C3 on C4. 2. No fracture. Chan Delgadillo MD Objective Remarks GENERAL: Elderly male patient, lethargic. SKIN: Warm and dry. No rash. HEENT: Normocephalic. Right Frontal head contusion/ecchymosis. Pupils equal and round. Mucous membranes pink and moist. NECK: Supple. Trachea midline. CARDIOVASCULAR: Regular rate and rhythm. S1, S2 noted. No murmur appreciated. RESPIRATORY: Diffuse coarse breath sounds. GASTROINTESTINAL: Abdomen soft, slightly tender, nondistended. Normoactive bowel sounds x4. Abdominal pulses noted. MUSCULOSKELETAL: No obvious deformities. Extremities without clubbing, cyanosis , or edema. NEUROLOGICAL: Lethargic. No obvious cranial nerve deficits. Moving upper and lower extremities. PSYCHIATRIC: Insight and judgment poor. Medications and IVs Current Medications Medications (Trade) Dose Ordered Sig/Paulo Route Start Time Stop Time Status Last Admin (NS Flush) 2 ml BID IV FLUSH 04/11/17 09:00 04/22/17 10:16 (NS Flush) 2 ml UNSCH PRN IV FLUSH 04/11/17 07:30 (Pravachol) 40 mg DAILY PO 04/11/17 09:00 04/22/17 10:08 (Flomax) 0.4 mg HS PO 04/12/17 21:00 04/21/17 21:00 (Flagyl) 500 mg Q8HR PO 04/13/17 14:00 04/27/17 13:59 04/22/17 12:26 (Vasotec Inj) 1.25 mg Q6H PRN IV PUSH 04/13/17 16:15 04/20/17 06:00 (Plavix) 75 mg DAILY PO 04/15/17 09:00 04/22/17 10:07 (Colace) 100 mg DAILY PO 04/15/17 12:30 Hold 04/18/17 08:35 (Pepcid) 20 mg BID PO 04/16/17 21:00 04/22/17 10:08 (Habitrol 21 Mg Patch.24 Hr) 1 patch DAILY T-DERMAL 04/16/17 12:00 04/22/17 10:11 Miscellaneous Information 1 DAILY T-DERMAL 04/17/17 09:00 04/22/17 09:00 (Tylenol) 650 mg Q4H PRN PO 04/16/17 13:45 04/16/17 18:39 Amlodipine Besylate 10 mg 10 mg DAILY PO 04/18/17 09:00 04/22/17 10:08 Piperacillin Sod/ Tazobactam Sod 100 ml @ 200 mls/hr Q6H IV 04/18/17 21:00 04/22/17 11:30 Pharmacy Profile Note 0 ml @ 0 mls/hr UNSCH OTHER 04/19/17 09:00 (Keppra Inj/NS Inj) 105 ml @ 420 mls/hr Q12HR IV 04/19/17 16:15 04/22/17 10:07 (Prinivil) 40 mg DAILY PO 04/21/17 09:00 04/22/17 10:08 (Ritalin Ir) 10 mg BID@07,12 PO 04/22/17 12:00 04/22/17 11:30 A/P Problem List: (1) TIA (transient ischemic attack) ICD Code: G45.9 Status: Acute (2) Closed head injury ICD Code: S09.90XA Status: Acute Assessment and Plan 77-year-old male from [facility] with history of CVA, HLD, HTN, COPD, chronic pain, depression, presents after a fall with possible facial droop, concern for TIA/CVA Closed head injury: secondary to fall from bed, reportedly hit head on oxygen tank -Head CT with no acute findings -04/18 patient with worsening AMS, drowsiness, less communicative; with recent head injury and started on Plavix during this admission. Repeat CT brain unremarkable. Transient ischemic attack: with possible facial droop upon arrival, now resolved. No TPA therapy initiated as patient's symptoms resolved -Continue statin, neurology added Plavix. -NIHSS, Neuro checks, Monitor on telemetry -PT/OT/ST evaluations -Lipid profile wnl and HgbA1c 6.1 -Head CT and Brain MRI showed evidence of old infarcts, no acute findings -Head MRA shows occlusion of distal right vertebral artery; otherwise unremarkable -Neck MRA shows possible intimal dissection proximal left common carotid artery; recommends neck CTA -Neck CTA showed no dissection however with focal 50% stenosis at origin of left common carotid secondary to bulky calcified plaque -EEG unremarkable -Echocardiogram with EF 55-60%, mild MR, tract AR, mild TR -Holter monitoring essentially unremarkable, sinus rhythm with PACs -Neurology consulted, appreciate recommendations, started on Plavix C.Difficile Colitis: Stools have improved. -C. difficile PCR positive -started on Flagyl 500mg q8h q88tcnd after other antibiotics stopped AAA Noted on KUB. Abdominal pulses noted on exam. - CT abdomen and thorax is pending. - blood pressure control. Healthcare Associated Pneumonia: patient noted to be coughing with upper airway congestion and rhonchi on exam -checked CXR 04/17 which showed bibasilar consolidative changes. Repeat chest x-ray 04/19 with improving aeration -Continue on antibiotics with IV Zosyn and vancomycin -Blood culture 04/18 with NGTD -resp for acapella -Repeat ABG 04/19 noted with improvement from previous -Lasix 20 mg IV x 1. Dementia with Agitation: -Psychiatry consulted, recommended Haldol as needed. Neurology discontinued Haldol. -Changed Seroquel to Risperdal with poor by mouth intake. Risperdal held with encephalopathy. -consulted palliative care to assist with goals and group home planning, planned follow-up with hospice consultation as outpatient -continue restraints prn and sitter at bedside for safety -Refusal to eat may be related to C-Diff. Consider Megace if no improvement. Checked calorie count, encouraged oral intake. -trial of steroids per neurology. Hypertension: Not well controlled. -Increase lisinopril. -Continue amlodipine and tamsulosin -Vasotec as needed. Acute encephalopathy: Suspect metabolic secondary to pneumonia vs underlying seizures. Possibly toxic with addition of antipsychotics for mood stabilization. -Continue antibiotics -neurology on board, appreciate assistance -Neurology started Keppra with possible underlying seizures. Also on steroids. -Repeat labs reviewed, stable DVT prophylaxis: SCDs Discharge Planning Will eventually go to SNF with hospice Ed Driscoll DO Apr 22, 2017 13:46
[2017-04-22] MEDS ORDERED: FUROSEMIDE 20 MG/2 ML VIAL IV PUSH ONE (16:00)
[2017-04-22] MEDS ORDERED: IOHEXOL 350 MG/ML 10 ML VIAL (for RAD DIAG) IV ONE (16:30)
--- NOTE | 2017-04-22 16:32 | RADRPT ---
EXAM DATE/TIME: 04/22/2017 15:56 [facility] COMPARISON: No previous studies available for comparison. INDICATIONS : Short of breath. IV CONTRAST: 85 cc Omnipaque 350 (iohexol) IV ; Cumulative dose for multiple exams. RADIATION DOSE: 9.96 CTDIvol (mGy) ; Combined studies - Thorax/Abdomen/Pelvis MEDICAL HISTORY : Stroke. SURGICAL HISTORY : None. ENCOUNTER: Initial ACUITY: 1 day PAIN SCALE: 5/10 LOCATION: Bilateral chest TECHNIQUE: Volumetric scanning of the chest was performed. Using automated exposure control and adjustment of t he mA and/or kV according to patient size, radiation dose was kept as low as reasonably achievable to obtain optimal diagnostic quality images. DICOM format image data is available electronically for review and comparison. Follow-up recommendations for incidentally detected pulmonary nodules are based at a minimum on nodul e size and patient risk factors according to Fleischner Society Guidelines. FINDINGS: LUNGS: There is consolidation in the left lower lobe. There is hypodensity within the left lung suggesting p neumonia. Minimal consolidation the right lung base PLEURA: There is no pleural thickening. There is a small left pleural effusion. MEDIASTINUM: The heart and great vessels demonstrate no acute abnormality other and cardiac enlargement. There is no mediastinal or hilar lymphadenopathy. Dense coronary atherosclerotic disease. Small pericardial e ffusion. AXILLAE: Within normal limits. No lymphadenopathy. SKELETAL: Within normal limits for patient age. MISCELLANEOUS: The visualized upper abdominal organs demonstrate no acute abnormality. Abdominal aortic aneurysm def erred to CT the abdomen for complete characterization. CONCLUSION: Infiltrate in the left lower lobe with a small left pleural effusion. Mixed density within the lung s uspicious for pneumonia. Small left pleural effusion. Minimal consolidation right lower lobe posteri segundo. Piero Puga MD on April 22, 2017 at 16:28 Board Certified Radiologist. This report was verified electronically.
--- NOTE | 2017-04-22 16:59 | RADRPT ---
EXAM DATE/TIME: 04/22/2017 15:56 [facility] COMPARISON: No previous studies available for comparison. INDICATIONS : Abdomen pain. IV CONTRAST: 85 cc Omnipaque 350 (iohexol) IV ; Cumulative dose for multiple exams. ORAL CONTRAST: No oral contrast ingested. RADIATION DOSE: 9.96 CTDIvol (mGy) ; Combined studies - Thorax/Abdomen/Pelvis MEDICAL HISTORY : Stroke. SURGICAL HISTORY : None. ENCOUNTER: Initial ACUITY: 1 day PAIN SCALE: 5/10 LOCATION: Bilateral abdomen. TECHNIQUE: Volumetric scanning of the abdomen and pelvis was performed. Using automated exposure control and ad justment of the mA and/or kV according to patient size, radiation dose was kept as low as reasonably achievable to obtain optimal diagnostic quality images. DICOM format image data is available electro nically for review and comparison. FINDINGS: LOWER LUNGS: Visualized lung bases demonstrate an trace left pleural effusion with airspace consolidation in the l eft lower lobe. It also mild airspace disease in the right lung base. LIVER: Homogeneous density without lesion. There is no dilation of the biliary tree. No calcified gallston es. SPLEEN: Normal size without lesion. PANCREAS: Within normal limits. KIDNEYS: Left kidney is atrophic and end-stage in appearance. There are numerous left-sided renal cysts. Sever al are indeterminate in density particularly in the upper pole. There are multiple cysts in the right kidney with the largest measuring 1.9 x 2.1 cm in the hip. There is a 1.1 x 1.5 x 1.4 cm isodense le duane in the posterior mid right kidney. No right-sided hydronephrosis or ureteral calculi. ADRENAL GLANDS: Indeterminate density 1.1 x 0.7 cm left adrenal mass. VASCULAR: There is a large saccular juxtarenal abdominal aortic aneurysm which measures up to 7.5 x 6.6 cm in a xial dimensions. It extends to the aortic bifurcation. 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 Right external iliac alex ry is normal in caliber. There is likely at least moderate stenosis of the origin of the left externa l iliac artery. Left common femoral artery is also aneurysmal measuring up to 1.9 cm. Right common il iac artery is normal in caliber. BOWEL/MESENTERY: The bowel is suboptimally evaluated due to lack of oral contrast and paucity of mesenteric fat. There is a moderate amount of stool in the rectosigmoid colon. Although nondistended, there is fecalizatio n of ileal loops. There is no gross pneumatosis or free air. There is no significant free fluid in th e abdomen. ABDOMINAL WALL: Within normal limits. RETROPERITONEUM: There is no lymphadenopathy. BLADDER: No wall thickening or mass. REPRODUCTIVE: Within normal limits. INGUINAL: There is no lymphadenopathy or hernia. MUSCULOSKELETAL: Degenerative changes of the lower lumbar spine. CONCLUSION: 1. Large juxtarenal saccular abdominal aortic aneurysm measuring up to 7.5 x 6.6 cm. There are also a neurysms involving the right common iliac artery and left common femoral artery, as above. No signifi cant rupture or leak. 2. Nondistended loops of small bowel with fecalization of ileal loops particularly distally. This may reflect some degree of chronic adynamic ileus versus partial obstruction. 3. Atrophic end-stage appearing left kidney may reflect chronic ischemia or prior insult. 4. Multiple bilateral renal cysts with several cysts in the left kidney which are indeterminate in de nsity. There is a 1.1 x 1.5 x 1.4 cm isodense lesion in the posterior mid right kidney which is isode nse in density with indeterminate enhancement. Small renal cell carcinoma cannot be excluded. Conside r renal mass protocol CT or MRI exam for further characterization. 5. Indeterminate density 1.1 x 0.7 cm left adrenal mass. 6. Trace left pleural effusion and left lower lobe airspace consolidation partially imaged on this ex am. Please see CT chest report for details. Tutu Sharma MD on April 22, 2017 at 16:30 Board Certified Radiologist. This report was verified electronically.
[2017-04-22] MEDS: TAMSULOSIN HCL 0.4 MG CAP PO SCH (20:58)
[2017-04-23] VITALS (8 sets, daily range): BP systolic 138–162; BP diastolic 65–75; PULSE 64–79; RESP 18–20; TEMP 96.8–98.8; O2SAT 91–96
[2017-04-23] MEDS: PIPERACIL-TAZO 4.5 GM PREMIX 100 ML IV SCH ×4 (02:54→20:49)
[2017-04-23] MEDS: metroNIDAZOLE 500 MG TAB PO SCH ×3 (05:01→23:02)
[2017-04-23] MEDS: METHYLPHENIDATE HCL 10 MG TAB PO SCH ×2 (05:01→12:09)
--- NOTE | 2017-04-23 07:35 | HHI.PR ---
Subjective Remarks more alert now Objective Vital Signs Date Time Temp Pulse Resp B/P Pulse Ox O2 Delivery O2 Flow Rate FiO2 04/23/17 04:00 98.8 65 18 160/66 92 04/23/17 00:00 98.8 79 20 146/68 96 04/22/17 21:07 94 04/22/17 20:00 98.6 84 20 163/67 92 04/22/17 12:00 97.3 76 15 140/70 91 04/22/17 11:41 75 04/22/17 11:16 95 Nasal Cannula 2.00 04/22/17 08:00 97.5 72 16 165/81 95 I/O 04/22/17 04/22/17 04/22/17 04/23/17 04/23/17 04/23/17 07:00 15:00 23:00 07:00 15:00 23:00 Intake Total 412 ml 262 ml 601 ml 420 ml Balance 412 ml 262 ml 601 ml 420 ml Intake Oral 240 ml 120 ml IV Total 412 ml 262 ml 361 ml 300 ml # Voids 3 1 1 # Bowel Movements 0 0 Result Diagram: 04/20/17 1800 04/22/17 0948 Objective Remarks eyes to r less and less lethargic arouses mumbles Assessment and Plan Assessment and Plan imp eeg neg no new cva bilat old occipital and cbllr cva no new cva creat nl mra cow pcomms strong bilat vb small throughout echo and holter neg he is on statin ldl nl the left cca stenosis appears asx and i would rx just plavix and statin ok dc back to nh 04/19/17 some decompensation check abg mri eeg and dc sedatives i suspect he will bounce back 04/20/17 not much change mri nothing new eeg some triphasic like metabolic likey but i started keppra in case unwitnessed sz abg ok on abt should awaken slowwly as b4 ---- 04/21/17 no change recheck eeg on keppra may be postictal? try a steroid dose see if wakes up keep na up 04/22/17 no better crp [address] chest and abd try ritalin and steroids eeg slow but better 04/23/17 he looks better today ct chest pneumonia ct abd aaa and renal mass adrenal mass? defer to med team Marv Fortune MD Apr 23, 2017 07:35
[2017-04-23] MEDS: NICOTINE 21 MG/24 HR PATCH T-DERMAL SCH (08:01)
[2017-04-23] MEDS: FAMOTIDINE 20 MG TAB PO SCH ×2 (08:02→20:49)
[2017-04-23] MEDS: LISINOPRIL 20 MG TAB PO SCH (08:02)
[2017-04-23] MEDS: PRAVASTATIN SOD 40 MG TAB PO SCH (08:02)
[2017-04-23] MEDS: SODIUM CHLORIDE 0.9% FLUSH 5 ML FLUSH IV FLUSH SCH ×2 (08:02→20:49)
[2017-04-23] MEDS: CLOPIDOGREL 75 MG TAB PO SCH (08:02)
[2017-04-23] MEDS: REMOVE OLD PATCH T-DERMAL SCH (08:02)
[2017-04-23] MEDS: amLODIPine BESYLATE 5 MG TAB PO SCH (08:02)
[2017-04-23] MEDS: levETIRAcetam INJ 500 MG in SODIUM CHLORIDE 0.9% INJ 100 ML IV SCH ×2 (09:48→20:49)
[2017-04-23] MEDS: VANCOMYCIN INJ 1,750 MG in SODIUM CHLORID 0.9% 500 ML INJ 500 ML IV SCH (12:08)
[2017-04-23] MEDS ORDERED: MINERAL OIL ENEMA 118 ML BTL RECTAL ONE (14:30)
--- NOTE | 2017-04-23 14:56 | HHI.PR ---
Subjective Remarks The patient was alert and watching TV. He had no acute complaints. He requested the volume to be turned louder. Objective Vitals Vital Signs Date Time Temp Pulse Resp B/P Pulse Ox O2 Delivery O2 Flow Rate FiO2 04/23/17 12:06 97.2 68 18 138/65 91 04/23/17 09:53 74 04/23/17 08:01 96.8 64 18 155/67 91 04/23/17 04:00 98.8 65 18 160/66 92 04/23/17 00:00 98.8 79 20 146/68 96 04/22/17 21:07 94 04/22/17 20:00 98.6 84 20 163/67 92 I/O 04/22/17 04/22/17 04/22/17 04/23/17 04/23/17 04/23/17 07:00 15:00 23:00 07:00 15:00 23:00 Intake Total 412 ml 262 ml 601 ml 420 ml Balance 412 ml 262 ml 601 ml 420 ml Intake Oral 240 ml 120 ml IV Total 412 ml 262 ml 361 ml 300 ml # Voids 3 1 1 # Bowel Movements 0 0 Result Diagram: 04/20/17 1800 04/22/17 0948 Imaging Last Impressions Chest CT 04/22/17 0000 Signed Impressions: Service Date/Time: Saturday, April 22, 2017 15:56 - CONCLUSION: Infiltrate in the left lower lobe with a small left pleural effusion. Mixed density within the lung suspicious for pneumonia. Small left pleural effusion. Minimal consolidation right lower lobe posteriorly. Piero Puga MD Abdomen/Pelvis CT 04/21/17 0000 Signed Impressions: Service Date/Time: Saturday, April 22, 2017 15:56 - CONCLUSION: 1. Large juxtarenal saccular abdominal aortic aneurysm measuring up to 7.5 x 6.6 cm. There are also aneurysms involving the right common iliac artery and left common femoral artery, as above. No significant rupture or leak. 2. Nondistended loops of small bowel with fecalization of ileal loops particularly distally. This may reflect some degree of chronic adynamic ileus versus partial obstruction. 3. Atrophic end-stage appearing left kidney may reflect chronic ischemia or prior insult. 4. Multiple bilateral renal cysts with several cysts in the left kidney which are indeterminate in density. There is a 1.1 x 1.5 x 1.4 cm isodense lesion in the posterior mid right kidney which is isodense in density with indeterminate enhancement. Small renal cell carcinoma cannot be excluded. Consider renal mass protocol CT or MRI exam for further characterization. 5. Indeterminate density 1.1 x 0.7 cm left adrenal mass. 6. Trace left pleural effusion and left lower lobe airspace consolidation partially imaged on this exam. Please see CT chest report for details. Tutu Sharma MD Abdomen X-Ray 04/21/17 0000 Signed Impressions: Service Date/Time: Friday, April 21, 2017 13:39 - CONCLUSION: 1. Left basilar opacity is present may be due to a combination of consolidation and or pleural effusion. 2. Possible huge AAA and CT examination of the abdomen and pelvis is suggested to further characterize could be done without intravenous contrast. Juan M Keller MD Chest X-Ray 04/19/17 0000 Signed Impressions: Service Date/Time: Wednesday, April 19, 2017 09:40 - CONCLUSION: Improvement in aeration of the lungs. Juan M Keller MD Brain MRI 04/19/17 0000 Signed Impressions: Service Date/Time: Wednesday, April 19, 2017 12:40 - CONCLUSION: 1. Cortical atrophy and microvascular ischemic demyelinative change. 2. Large areas of infarct involving a occipital cortex and the left cerebellar hemisphere. No acute infarct is seen. Hi Birch MD Head CT 04/18/17 0000 Signed Impressions: Service Date/Time: April 11:15 - CONCLUSION: Stable chronic changes. Juan M Keller MD Neck CTA 04/12/17 Signed Impressions: Service Date/Time: Wednesday, April 12, 2017 15:59 - CONCLUSION: 1. Bulky calcified plaque at the origin of the left common carotid artery with resultant focal moderate to severe stenosis. No evidence for dissection as questioned. 2. Tenuous vertebral artery circulation with occluded left vertebral artery just beyond the origin and very small caliber right vertebral artery with likely tandem moderate stenoses at the origin and proximally. There is continuous flow from the right vertebral artery to the basilar artery with patent bilateral posterior commuting arteries. 3. Approximately 50%% stenosis of the proximal left internal carotid artery secondary to bulky calcified plaque. 4. No hemodynamically significant stenosis in the right carotid arteries. 5. Dilated proximal esophagus containing material. Clinical correlation is recommended. 6. Severe centrilobular emphysema in the lung apices. Tutu Sharma MD Neck Magnetic Resonance Angiography 04/11/17 0745 Signed Impressions: Service Date/Time: , April 11, 2017 08:52 - CONCLUSION: Appearance worrisome for a possible intimal dissection involving the proximal left common carotid artery. Mild disease without significant stenosis at the carotid bifurcations bilaterally. Tenuous vertebral circulation as described. Further evaluation with CTA examination of the arch and carotids would be suggested. Murray Perrin MD Head Magnetic Resonance Angiography 04/11/17 0000 Signed Impressions: Service Date/Time: April 08:52 - CONCLUSION: 1. No evidence for large vessel occlusion, aneurysm, or vascular malformation involving the anterior situation. 2. Apparent occlusion of the distal right vertebral artery with small caliber left vertebral and small caliber basilar artery. The posterior communicating arteries are patent bilaterally. There is evidence for prior left cerebellar infarct indicating chronicity. Tutu Sharma MD Cervical Spine CT 04/11/17 0000 Signed Impressions: Service Date/Time: April 06:02 - CONCLUSION: 1. Minimal anterolisthesis C3 on C4. 2. No fracture. Chan Delgadillo MD Objective Remarks GENERAL: Elderly male patient, resting in bed. SKIN: Warm and dry. No rash. HEENT: Normocephalic. Right Frontal head contusion/ecchymosis. Pupils equal and round. Mucous membranes pink and moist. NECK: Supple. Trachea midline. CARDIOVASCULAR: Regular rate and rhythm. S1, S2 noted. No murmur appreciated. RESPIRATORY: Diffuse coarse breath sounds. GASTROINTESTINAL: Abdomen soft, slightly tender, nondistended. Normoactive bowel sounds x4. Abdominal pulses noted. MUSCULOSKELETAL: No obvious deformities. Extremities without clubbing, cyanosis , or edema. NEUROLOGICAL: Awake and alert. No obvious cranial nerve deficits. Moving upper and lower extremities. PSYCHIATRIC: Insight and judgment poor. Medications and IVs Current Medications Medications (Trade) Dose Ordered Sig/Paulo Route Start Time Stop Time Status Last Admin (NS Flush) 2 ml BID IV FLUSH 04/11/17 09:00 04/23/17 08:02 (NS Flush) 2 ml UNSCH PRN IV FLUSH 04/11/17 07:30 (Pravachol) 40 mg DAILY PO 04/11/17 09:00 04/23/17 08:02 (Flomax) 0.4 mg HS PO 04/12/17 21:00 04/22/17 20:58 (Flagyl) 500 mg Q8HR PO 04/13/17 14:00 04/27/17 13:59 04/23/17 12:09 (Vasotec Inj) 1.25 mg Q6H PRN IV PUSH 04/13/17 16:15 04/20/17 06:00 (Plavix) 75 mg DAILY PO 04/15/17 09:00 04/23/17 08:02 (Colace) 100 mg DAILY PO 04/15/17 12:30 Hold 04/18/17 08:35 (Pepcid) 20 mg BID PO 04/16/17 21:00 04/23/17 08:02 (Habitrol 21 Mg Patch.24 Hr) 1 patch DAILY T-DERMAL 04/16/17 12:00 04/23/17 08:01 Miscellaneous Information 1 DAILY T-DERMAL 04/17/17 09:00 04/23/17 08:02 (Tylenol) 650 mg Q4H PRN PO 04/16/17 13:45 04/16/17 18:39 Amlodipine Besylate 10 mg 10 mg DAILY PO 04/18/17 09:00 04/23/17 08:02 Piperacillin Sod/ Tazobactam Sod 100 ml @ 200 mls/hr Q6H IV 04/18/17 21:00 04/23/17 08:00 Pharmacy Profile Note 0 ml @ 0 mls/hr UNSCH OTHER 04/19/17 09:00 (Keppra Inj/NS Inj) 105 ml @ 420 mls/hr Q12HR IV 04/19/17 16:15 04/23/17 09:48 (Prinivil) 40 mg DAILY PO 04/21/17 09:00 04/23/17 08:02 Methylphenidate HCl 10 mg 10 mg BID@07,12 PO 04/22/17 12:00 04/23/17 12:09 (Vancomycin Inj/ NS 500 ml Inj) 517.5 ml @ 257.5 mls/ hr Q24H IV 04/23/17 12:00 04/23/17 12:08 Miscellaneous Information SPECIFIC LAB TO BE ... ONCE ONCE .XX 04/25/17 11:45 04/25/17 11:46 A/P Problem List: (1) TIA (transient ischemic attack) ICD Code: G45.9 Status: Acute (2) Closed head injury ICD Code: S09.90XA Status: Acute Assessment and Plan 77-year-old male from [facility] with history of CVA, HLD, HTN, COPD, chronic pain, depression, presents after a fall with possible facial droop, concern for TIA/CVA Closed head injury: secondary to fall from bed, reportedly hit head on oxygen tank -Head CT with no acute findings. Repeat head CT stable.l Transient ischemic attack: with possible facial droop upon arrival, now resolved. No TPA therapy initiated as patient's symptoms resolved -Continue statin, neurology added Plavix. -NIHSS, Neuro checks, Monitor on telemetry -PT/OT/ST evaluations -Lipid profile wnl and HgbA1c 6.1 -Head CT and Brain MRI showed evidence of old infarcts, no acute findings -Head MRA shows occlusion of distal right vertebral artery; otherwise unremarkable -Neck MRA shows possible intimal dissection proximal left common carotid artery; recommends neck CTA -Neck CTA showed no dissection however with focal 50% stenosis at origin of left common carotid secondary to bulky calcified plaque -EEG unremarkable -Echocardiogram with EF 55-60%, mild MR, tract AR, mild TR -Holter monitoring essentially unremarkable, sinus rhythm with PACs -Neurology consulted, appreciate recommendations, started on Plavix C.Difficile Colitis: Stools have improved. -C. difficile PCR positive -started on Flagyl 500mg q8h [id number] after other antibiotics stopped AAA Noted on CT. Abdominal pulses noted on exam. - family and pt not interested in pursuing surgery. - blood pressure control. Healthcare Associated Pneumonia: patient noted to be coughing with upper airway congestion and rhonchi on exam -checked CXR 04/17 which showed bibasilar consolidative changes. Repeat chest x-ray 04/19 with improving aeration -Continue on antibiotics with IV Zosyn and vancomycin -Blood culture 04/18 with NGTD -resp for acapella -Repeat ABG 04/19 noted with improvement from previous -Lasix as needed. Dementia with Agitation: -Psychiatry consulted, recommended Haldol as needed. Neurology discontinued Haldol. -Changed Seroquel to Risperdal with poor by mouth intake. Risperdal held with encephalopathy. -consulted palliative care to assist with goals and long term care social worker planning, planned follow-up with hospice consultation as outpatient -continue restraints prn and sitter at bedside for safety -Refusal to eat may be related to C-Diff. Consider Megace if no improvement. Checked calorie count, encouraged oral intake. -trial of steroids per neurology. Mentation improved. Hypertension: Not well controlled. -Increase lisinopril. -Continue amlodipine and tamsulosin -Vasotec as needed. Acute encephalopathy: Suspect metabolic secondary to pneumonia vs underlying seizures. Possibly toxic with addition of antipsychotics for mood stabilization. -Continue antibiotics -neurology on board, appreciate assistance -Neurology started Keppra with possible underlying seizures. Also on steroids. -Repeat labs reviewed, stable Partial SBO Noted on CT. - continue bowel regimen. Mineral oil enema ordered. DVT prophylaxis: SCDs Discharge Planning Anticipate d/c to SNF in 1-2 days, when SBO has resolved and mental status remains stable. Ed Driscoll DO Apr 23, 2017 14:56
[2017-04-23] MEDS: TAMSULOSIN HCL 0.4 MG CAP PO SCH (20:49)
[2017-04-24] VITALS (8 sets, daily range): BP systolic 148–178; BP diastolic 75–91; PULSE 75–97; RESP 16–19; TEMP 97.6–98.2; O2SAT 90–94
[2017-04-24] MEDS: PIPERACIL-TAZO 4.5 GM PREMIX 100 ML IV SCH ×4 (03:44→21:23)
[2017-04-24] MEDS: metroNIDAZOLE 500 MG TAB PO SCH ×4 (06:00→21:30)
[2017-04-24] MEDS: METHYLPHENIDATE HCL 10 MG TAB PO SCH ×3 (06:02→11:30)
--- NOTE | 2017-04-24 07:54 | HHI.PR ---
Subjective Remarks more alert now Objective Vital Signs Date Time Temp Pulse Resp B/P Pulse Ox O2 Delivery O2 Flow Rate FiO2 04/24/17 04:00 98.0 93 18 148/76 91 04/24/17 00:00 97.9 80 18 164/77 90 04/23/17 20:41 97.9 73 18 162/75 91 04/23/17 16:38 96.8 68 20 151/72 96 04/23/17 12:06 97.2 68 18 138/65 91 04/23/17 10:55 92 Nasal Cannula 2.00 04/23/17 09:53 74 04/23/17 08:01 96.8 64 18 155/67 91 I/O 04/23/17 04/23/17 04/23/17 04/24/17 04/24/17 04/24/17 07:00 15:00 23:00 07:00 15:00 23:00 Intake Total 420 ml 240 ml Balance 420 ml 240 ml Intake Oral 120 ml 240 ml IV Total 300 ml # Voids 1 2 2 # Bowel Movements 0 2 1 Result Diagram: 04/20/17 1800 04/22/17 0948 Objective Remarks eyes to r less and much more alert following commands Assessment and Plan Assessment and Plan imp eeg neg no new cva bilat old occipital and cbllr cva no new cva creat nl mra cow pcomms strong bilat vb small throughout echo and holter neg he is on statin ldl nl the left cca stenosis appears asx and i would rx just plavix and statin ok dc back to [facility] 04/19/17 some decompensation check abg mri eeg and dc sedatives i suspect he will bounce back 04/20/17 not much change mri nothing new eeg some triphasic like metabolic likey but i started keppra in case unwitnessed sz abg ok on abt should awaken slowwly as b4 ---- 04/21/17 no change recheck eeg on keppra may be postictal? try a steroid dose see if wakes up keep na up 04/22/17 no better crp [address] chest and abd try ritalin and steroids eeg slow but better 04/23/17 he looks better today ct chest pneumonia ct abd aaa and renal mass adrenal mass? defer to med team basilio brizuela 04/24/17 much better today possible he had unwitness Marv Selby MD Apr 24, 2017 07:54
[2017-04-24 08:58] LABS: BICARBONATE 31.1 MEQ/L (21.0-32.0); MAGNESIUM 1.9 MG/DL (1.5-2.5); POTASSIUM 3.4 MEQ/L (3.5-5.1)
[2017-04-24] MEDS: amLODIPine BESYLATE 5 MG TAB PO SCH (09:27)
[2017-04-24] MEDS: levETIRAcetam INJ 500 MG in SODIUM CHLORIDE 0.9% INJ 100 ML IV SCH ×2 (09:27→21:24)
[2017-04-24] MEDS: CLOPIDOGREL 75 MG TAB PO SCH (09:27)
[2017-04-24] MEDS: LISINOPRIL 20 MG TAB PO SCH (09:28)
[2017-04-24] MEDS: FAMOTIDINE 20 MG TAB PO SCH ×2 (09:29→21:23)
[2017-04-24] MEDS: REMOVE OLD PATCH T-DERMAL SCH (09:29)
[2017-04-24] MEDS: NICOTINE 21 MG/24 HR PATCH T-DERMAL SCH (09:29)
[2017-04-24] MEDS: PRAVASTATIN SOD 40 MG TAB PO SCH (09:29)
[2017-04-24] MEDS: SODIUM CHLORIDE 0.9% FLUSH 5 ML FLUSH IV FLUSH SCH ×2 (09:39→21:24)
[2017-04-24] MEDS: VANCOMYCIN INJ 1,750 MG in SODIUM CHLORID 0.9% 500 ML INJ 500 ML IV SCH (11:30)
--- NOTE | 2017-04-24 11:48 | HHI.PR ---
Subjective Remarks This is a pleasant 77 y/o Male who is Oxygen dependent COPD, stroke, Hypertension, Chronic pain syndrome GERD, Who presented to the ED via EMS on 04/11/17 for evaluation of injuries secondary to mechanical fall, noted for left-sided facial droop, unclear if new onset or baseline secondary to prior CVA. Head CT negative for acute process, or infarcts noted. Likely TIA. Patient with active C. difficile infection. Psychiatry, Dr. Torres until following secondary to agitation. Patient has been declining/refusing to work with physical therapy and has only been eating small amounts of food. Palliative care has been consulted for further clarifications of goals of care given chronic comorbidities, the likelihood of advanced dementia and treatment refusal. Neurology specialist following, also collective bargaining specialist following, continue with Persistent Encephalopathy, the plan is to return to Jail at discharge, he has Dementia, is DNR/DNI , as per his Daughter the goal is to continue with Conservative management and return to SNF, Psychiatry specialist recommended to discontinue home medicines. As per Neurology specialist EEG negative, no new CVA, Echocardiogram and Holter Monitoring negative, he is on statins, he had unwitnessed Seizure, to continue Keppra, CT chest showing Pneumonia, CT abdominal AAA adrenal mass questioned. Seen in his bedroom and discussed with nurse Miss Gilliland, he needed today to be placed on Non rebreather mask due to Oxygen saturation in 80s, at this time stable, confused. if improving by tomorrow and cleared by Neurology okay to discharge tomorrow. Objective Vital Signs Date Time Temp Pulse Resp B/P Pulse Ox O2 Delivery O2 Flow Rate FiO2 04/24/17 08:11 98.2 97 19 162/82 93 04/24/17 04:00 98.0 93 18 148/76 91 04/24/17 00:00 97.9 80 18 164/77 90 04/23/17 20:41 97.9 73 18 162/75 91 04/23/17 16:38 96.8 68 20 151/72 96 04/23/17 12:06 97.2 68 18 138/65 91 I/O 04/23/17 04/23/17 04/23/17 04/24/17 04/24/17 04/24/17 06:59 14:59 22:59 06:59 14:59 22:59 Intake Total 420 ml 240 ml Balance 420 ml 240 ml Intake Oral 120 ml 240 ml IV Total 300 ml # Voids 1 2 2 # Bowel Movements 0 2 1 Result Diagram: 04/20/17 1800 04/24/17 0808 Imaging Last Impressions Chest CT 04/22/17 0000 Signed Impressions: Service Date/Time: Saturday, April 22, 2017 15:56 - CONCLUSION: Infiltrate in the left lower lobe with a small left pleural effusion. Mixed density within the lung suspicious for pneumonia. Small left pleural effusion. Minimal consolidation right lower lobe posteriorly. Piero Puga MD Abdomen/Pelvis CT 04/21/17 0000 Signed Impressions: Service Date/Time: Saturday, April 22, 2017 15:56 - CONCLUSION: 1. Large juxtarenal saccular abdominal aortic aneurysm measuring up to 7.5 x 6.6 cm. There are also aneurysms involving the right common iliac artery and left common femoral artery, as above. No significant rupture or leak. 2. Nondistended loops of small bowel with fecalization of ileal loops particularly distally. This may reflect some degree of chronic adynamic ileus versus partial obstruction. 3. Atrophic end-stage appearing left kidney may reflect chronic ischemia or prior insult. 4. Multiple bilateral renal cysts with several cysts in the left kidney which are indeterminate in density. There is a 1.1 x 1.5 x 1.4 cm isodense lesion in the posterior mid right kidney which is isodense in density with indeterminate enhancement. Small renal cell carcinoma cannot be excluded. Consider renal mass protocol CT or MRI exam for further characterization. 5. Indeterminate density 1.1 x 0.7 cm left adrenal mass. 6. Trace left pleural effusion and left lower lobe airspace consolidation partially imaged on this exam. Please see CT chest report for details. Tutu Sharma MD Abdomen X-Ray 04/21/17 0000 Signed Impressions: Service Date/Time: Friday, April 21, 2017 13:39 - CONCLUSION: 1. Left basilar opacity is present may be due to a combination of consolidation and or pleural effusion. 2. Possible huge AAA and CT examination of the abdomen and pelvis is suggested to further characterize could be done without intravenous contrast. Juan M Keller MD Chest X-Ray 04/19/17 0000 Signed Impressions: Service Date/Time: Wednesday, April 19, 2017 09:40 - CONCLUSION: Improvement in aeration of the lungs. Juan M Keller MD Brain MRI 04/19/17 Signed Impressions: Service Date/Time: Wednesday, April 19, 2017 12:40 - CONCLUSION: 1. Cortical atrophy and microvascular ischemic demyelinative change. 2. Large areas of infarct involving a occipital cortex and the left cerebellar hemisphere. No acute infarct is seen. Hi Birch MD Head CT 04/18/17 Signed Impressions: Service Date/Time: April 11:15 - CONCLUSION: Stable chronic changes. Juan M Keller MD Neck CTA 04/12/17 Signed Impressions: Service Date/Time: Wednesday, April 12, 2017 15:59 - CONCLUSION: 1. Bulky calcified plaque at the origin of the left common carotid artery with resultant focal moderate to severe stenosis. No evidence for dissection as questioned. 2. Tenuous vertebral artery circulation with occluded left vertebral artery just beyond the origin and very small caliber right vertebral artery with likely tandem moderate stenoses at the origin and proximally. There is continuous flow from the right vertebral artery to the basilar artery with patent bilateral posterior commuting arteries. 3. Approximately 50%% stenosis of the proximal left internal carotid artery secondary to bulky calcified plaque. 4. No hemodynamically significant stenosis in the right carotid arteries. 5. Dilated proximal esophagus containing material. Clinical correlation is recommended. 6. Severe centrilobular emphysema in the lung apices. Tutu Sharma MD Neck Magnetic Resonance Angiography 04/11/17 0745 Signed Impressions: Service Date/Time: April 08:52 - CONCLUSION: Appearance worrisome for a possible intimal dissection involving the proximal left common carotid artery. Mild disease without significant stenosis at the carotid bifurcations bilaterally. Tenuous vertebral circulation as described. Further evaluation with CTA examination of the arch and carotids would be suggested. Murray Perrin MD Head Magnetic Resonance Angiography 04/11/17 0000 Signed Impressions: Service Date/Time: April 08:52 - CONCLUSION: 1. No evidence for large vessel occlusion, aneurysm, or vascular malformation involving the anterior situation. 2. Apparent occlusion of the distal right vertebral artery with small caliber left vertebral and small caliber basilar artery. The posterior communicating arteries are patent bilaterally. There is evidence for prior left cerebellar infarct indicating chronicity. Tutu Sharma MD Cervical Spine CT 04/11/17 0000 Signed Impressions: Service Date/Time: April 06:02 - CONCLUSION: 1. Minimal anterolisthesis C3 on C4. 2. No fracture. Chan Delgadillo MD Procedures None Other Results Laboratory Tests Test 04/20/17 04/21/17 04/22/17 04/24/17 18:00 07:08 09:45 08:08 White Blood Count 8.3 TH/MM3 Red Blood Count 4.43 MIL/MM3 Hemoglobin 13.7 GM/DL Hematocrit 40.8 % Mean Corpuscular Volume 92.1 FL Mean Corpuscular Hemoglobin 31.0 PG Mean Corpuscular Hemoglobin 33.6 % Concent Red Cell Distribution Width 14.5 % Platelet Count 172 TH/MM3 Mean Platelet Volume 8.9 FL Neutrophils (%) (Auto) 75.1 % Lymphocytes (%) (Auto) 12.5 % Monocytes (%) (Auto) 8.0 % Eosinophils (%) (Auto) 1.6 % Basophils (%) (Auto) 2.8 % Neutrophils # (Auto) 6.3 TH/MM3 Lymphocytes # (Auto) 1.0 TH/MM3 Monocytes # (Auto) 0.7 TH/MM3 Eosinophils # (Auto) 0.1 TH/MM3 Basophils # (Auto) 0.2 TH/MM3 CBC Comment DIFF FINAL Differential Comment C-Reactive Protein 5.40 MG/DL Vancomycin Level Trough 9.6 MCG/ML Sodium Level 135 MEQ/L Potassium Level 3.4 MEQ/L Chloride Level 99 MEQ/L Carbon Dioxide Level 31.1 MEQ/L Anion Gap 5 MEQ/L Blood Urea Nitrogen 32 MG/DL Creatinine 1.04 MG/DL Estimat Glomerular Filtration 69 ML/MIN Rate Random Glucose 107 MG/DL Calcium Level 8.3 MG/DL Magnesium Level 1.9 MG/DL Objective Remarks GENERAL: No acute distress. SKIN: Warm and dry. No rash. HEENT: Normocephalic. Right Frontal head contusion/ecchymosis. Pupils equal and round. Mucous membranes pink and moist. NECK: Supple. Trachea midline. CARDIOVASCULAR: Regular rate and rhythm. S1, S2 noted. No murmur appreciated. RESPIRATORY: Diffuse coarse breath sounds. GASTROINTESTINAL: Abdomen soft, slightly tender, nondistended. Normoactive bowel sounds x4. Abdominal pulses noted. MUSCULOSKELETAL: No obvious deformities. Extremities without clubbing, cyanosis , or edema. NEUROLOGICAL: Awake and alert. No obvious cranial nerve deficits. Moving upper and lower extremities. PSYCHIATRIC: Insight and judgment poor. Medications and IVs Current Medications Medications (Trade) Dose Ordered Sig/Paulo Route Start Time Stop Time Status Last Admin (NS Flush) 2 ml BID IV FLUSH 04/11/17 09:00 04/24/17 09:39 (NS Flush) 2 ml UNSCH PRN IV FLUSH 04/11/17 07:30 (Pravachol) 40 mg DAILY PO 04/11/17 09:00 04/24/17 09:29 (Flomax) 0.4 mg HS PO 04/12/17 21:00 04/23/17 20:49 (Flagyl) 500 mg Q8HR PO 04/13/17 14:00 04/27/17 13:59 04/23/17 23:02 (Vasotec Inj) 1.25 mg Q6H PRN IV PUSH 04/13/17 16:15 04/20/17 06:00 (Plavix) 75 mg DAILY PO 04/15/17 09:00 04/24/17 09:27 (Colace) 100 mg DAILY PO 04/15/17 12:30 Hold 04/18/17 08:35 (Pepcid) 20 mg BID PO 04/16/17 21:00 04/24/17 09:29 (Habitrol 21 Mg Patch.24 Hr) 1 patch DAILY T-DERMAL 04/16/17 12:00 04/24/17 09:29 Miscellaneous Information 1 DAILY T-DERMAL 04/17/17 09:00 04/23/17 08:02 (Tylenol) 650 mg Q4H PRN PO 04/16/17 13:45 04/16/17 18:39 Amlodipine Besylate 10 mg 10 mg DAILY PO 04/18/17 09:00 04/24/17 09:27 Piperacillin Sod/ Tazobactam Sod 100 ml @ 200 mls/hr Q6H IV 04/18/17 21:00 04/24/17 09:27 Pharmacy Profile Note 0 ml @ 0 mls/hr UNSCH OTHER 04/19/17 09:00 (Keppra Inj/NS Inj) 105 ml @ 420 mls/hr Q12HR IV 04/19/17 16:15 04/24/17 09:27 (Prinivil) 40 mg DAILY PO 04/21/17 09:00 04/24/17 09:28 Methylphenidate HCl 10 mg 10 mg BID@07,12 PO 04/22/17 12:00 04/24/17 11:30 (Vancomycin Inj/ NS 500 ml Inj) 517.5 ml @ 257.5 mls/ hr Q24H IV 04/23/17 12:00 04/24/17 11:30 Miscellaneous Information SPECIFIC LAB TO BE JEREMY... ONCE ONCE .XX 04/25/17 11:45 04/25/17 11:46 A/P Assessment and Plan 77-year-old male from [facility] with history of CVA, HLD, HTN, COPD, chronic pain, depression, presents after a fall with possible facial droop, concern for TIA/CVA Closed head injury: secondary to fall from bed, reportedly hit head on oxygen tank -Head CT with no acute findings. Repeat head CT stable. Transient ischemic attack: with possible facial droop upon arrival, now resolved. No TPA therapy initiated as patient's symptoms resolved -Continue statin, neurology added Plavix. -PT/OT/ST following. -Lipid profile wnl and HgbA1c 6.1 -Head CT and Brain MRI showed evidence of old infarcts, no acute findings -Head MRA shows occlusion of distal right vertebral artery; otherwise unremarkable -Neck MRA shows possible intimal dissection proximal left common carotid artery; recommends neck CTA -Neck CTA showed no dissection however with focal 50% stenosis at origin of left common carotid secondary to bulky calcified plaque -EEG unremarkable -Echocardiogram with EF 55-60%, mild MR, tract AR, mild TR -Holter monitoring essentially unremarkable, sinus rhythm with PACs -Neurology consulted, appreciate recommendations, started on Plavix C.Difficile Colitis: Stools have improved. -C. difficile PCR positive -started on Flagyl 500mg q8h [id number] after other antibiotics stopped AAA Noted on CT. Abdominal pulses noted on exam. - family and pt not interested in pursuing surgery. - blood pressure control. Healthcare Associated Pneumonia: patient noted to be coughing with upper airway congestion and rhonchi on exam -checked CXR 04/17 which showed bibasilar consolidative changes. Repeat chest x-ray 04/19 with improving aeration -Continue on antibiotics with IV Zosyn and Discontinue Vancomycin. -Blood culture 04/18 with NGTD -Repeat ABG 04/19 noted with improvement from previous -Lasix as needed. Dementia with Agitation: -Psychiatry consulted, recommended Haldol as needed. Neurology discontinued Haldol. -Changed Seroquel to Risperdal with poor by mouth intake. Risperdal held with encephalopathy. -consulted palliative care to assist with goals and bed bug exterminator planning, planned follow-up with hospice consultation as outpatient -continue restraints prn and sitter at bedside for safety -Refusal to eat may be related to C-Diff. Consider Megace if no improvement. Checked calorie count, encouraged oral intake. -trial of steroids per neurology. Mentation improved. Hypertension: Uncontrolled Medicines adjusted and following. -Increase lisinopril. -Continue amlodipine and tamsulosin -Vasotec as needed. Acute encephalopathy: Suspect metabolic secondary to pneumonia vs underlying seizures. Possibly toxic with addition of antipsychotics for mood stabilization. -Continue antibiotics -neurology on board, appreciate assistance -Neurology started Kera with possible underlying seizures. Also on steroids. -Repeat labs reviewed, stable awaiting final byt Neurology to Discharge. Partial SBO Noted on CT. - continue bowel regimen. Mineral oil enema ordered. DVT prophylaxis: SCDs The patient has chronic pathology and is expected that after discharge will come back for Re admission the patient is more suited for Hospice care but his Daughter decline this management he will be discharged in am tomorrow once cleared by Neurology. Discharge Planning Expected in am tomorrow after Neurology specialist Clearance. Kye Zaragoza MD Apr 24, 2017 11:48
[2017-04-24] MEDS ORDERED: POTASSIUM CHLORIDE 20 MEQ CONTROLLED RELEASE TAB PO ONE (12:00)
[2017-04-24] MEDS ORDERED: MAGNESIUM SULFATE 1 GM PREMIX 100 ML IV SCH (13:00)
[2017-04-24] MEDS: RESP: ALBUTEROL 2.5 MG/IPRATROPIUM 0.5 MG NEB (PRN) NEB (13:28)
[2017-04-24] MEDS: TAMSULOSIN HCL 0.4 MG CAP PO SCH (21:23)
[2017-04-25] VITALS (8 sets, daily range): BP systolic 171–182; BP diastolic 81–91; PULSE 76–98; RESP 16–20; TEMP 98.1–99.7; O2SAT 91–95
[2017-04-25] MEDS: PIPERACIL-TAZO 4.5 GM PREMIX 100 ML IV SCH ×4 (04:29→22:37)
[2017-04-25] MEDS: METHYLPHENIDATE HCL 10 MG TAB PO SCH ×2 (07:30→12:20)
[2017-04-25] MEDS: metroNIDAZOLE 500 MG TAB PO SCH ×3 (07:30→22:37)
--- NOTE | 2017-04-25 07:33 | HHI.PR ---
Subjective Remarks more alert now Objective Vital Signs Date Time Temp Pulse Resp B/P Pulse Ox O2 Delivery O2 Flow Rate FiO2 04/25/17 05:35 98.6 76 16 171/82 95 04/24/17 23:54 97.6 84 18 165/75 92 04/24/17 20:52 97.7 86 16 178/90 94 04/24/17 17:52 Nasal Cannula 2.00 04/24/17 13:38 92 Nasal Cannula 6.00 04/24/17 12:45 98.2 80 19 173/91 94 04/24/17 09:45 75 04/24/17 08:11 98.2 97 19 162/82 93 I/O 04/24/17 04/24/17 04/24/17 04/25/17 04/25/17 04/25/17 06:59 14:59 22:59 06:59 14:59 22:59 # Voids 2 2 4 # Bowel Movements 1 1 Result Diagram: 04/24/17 0808 Procedures None Objective Remarks eyes to r less awakens some this am Assessment and Plan Assessment and Plan imp eeg neg no new cva bilat old occipital and cbllr cva no new cva creat nl mra cow pcomms strong bilat vb small throughout echo and holter neg he is on statin ldl nl the left cca stenosis appears asx and i would rx just plavix and statin ok dc back to [facility] 04/19/17 some decompensation check abg mri eeg and dc sedatives i suspect he will bounce back 04/20/17 not much change mri nothing new eeg some triphasic like metabolic likey but i started keppra in case unwitnessed sz abg ok on abt should awaken slowwly as b4 ---- 04/21/17 no change recheck eeg on keppra may be postictal? try a steroid dose see if wakes up keep na up 04/22/17 no better crp [address] chest and abd try ritalin and steroids eeg slow but better 04/23/17 he looks better today ct chest pneumonia ct abd aaa and renal mass adrenal mass? defer to med team basilio brizuela 04/24/17 much better today possible he had unwitness sue richmond 04/25/17 did well all day yest little groggy this am PT OOB dc maybe in am? Marv Christie MD Apr 25, 2017 07:33
[2017-04-25] MEDS: CLOPIDOGREL 75 MG TAB PO SCH (08:08)
[2017-04-25] MEDS: FAMOTIDINE 20 MG TAB PO SCH ×2 (08:08→22:38)
[2017-04-25] MEDS: amLODIPine BESYLATE 5 MG TAB PO SCH (08:08)
[2017-04-25] MEDS: PRAVASTATIN SOD 40 MG TAB PO SCH (08:08)
[2017-04-25] MEDS: LISINOPRIL 20 MG TAB PO SCH (08:08)
[2017-04-25] MEDS: levETIRAcetam INJ 500 MG in SODIUM CHLORIDE 0.9% INJ 100 ML IV SCH ×2 (08:08→22:37)
[2017-04-25] MEDS: NICOTINE 21 MG/24 HR PATCH T-DERMAL SCH (08:09)
[2017-04-25] MEDS: REMOVE OLD PATCH T-DERMAL SCH (08:09)
[2017-04-25] MEDS: SODIUM CHLORIDE 0.9% FLUSH 5 ML FLUSH IV FLUSH SCH ×2 (08:09→21:00)
--- NOTE | 2017-04-25 11:31 | HHI.PR ---
Subjective Remarks This is a pleasant 77 y/o Male who is Oxygen dependent COPD, stroke, Hypertension, Chronic pain syndrome GERD, Who presented to the ED via EMS on 04/11/17 for evaluation of injuries secondary to mechanical fall, noted for left-sided facial droop, unclear if new onset or baseline secondary to prior CVA. Head CT negative for acute process, or infarcts noted. Likely TIA. Patient with active C. difficile infection. Psychiatry, Dr. Torres until following secondary to agitation. Patient has been declining/refusing to work with physical therapy and has only been eating small amounts of food. Palliative care has been consulted for further clarifications of goals of care given chronic comorbidities, the likelihood of advanced dementia and treatment refusal. Neurology specialist following, also software licensing specialist following, continue with Persistent Encephalopathy, the plan is to return to Care Home at discharge, he has Dementia, is DNR/DNI , as per his Daughter the goal is to continue with Conservative management and return to SNF, Psychiatry specialist recommended to discontinue home medicines. As per Neurology specialist EEG negative, no new CVA, Echocardiogram and Holter Monitoring negative, he is on statins, he had unwitnessed Seizure, to continue Keppra, CT chest showing Pneumonia, CT abdominal AAA adrenal mass questioned. Seen in his bedroom and discussed with nurse Miss Gilliland, he needed today to be placed on Non rebreather mask due to Oxygen saturation in 80s, at this time stable, confused. 04/25: Patient seen in his bedroom discussed with nurse, stable more alert and oriented, on nasal Cannula only and maintain good oxygen saturation, no nausea, vomit or diarrhea. Objective Vital Signs Date Time Temp Pulse Resp B/P Pulse Ox O2 Delivery O2 Flow Rate FiO2 04/25/17 08:29 98.4 84 20 182/91 91 04/25/17 05:35 98.6 76 16 171/82 95 04/24/17 23:54 97.6 84 18 165/75 92 04/24/17 20:52 97.7 86 16 178/90 94 04/24/17 17:52 Nasal Cannula 2.00 04/24/17 13:38 92 Nasal Cannula 6.00 04/24/17 12:45 98.2 80 19 173/91 94 I/O 04/24/17 04/24/17 04/24/17 04/25/17 04/25/17 04/25/17 07:00 15:00 23:00 07:00 15:00 23:00 # Voids 2 2 4 # Bowel Movements 1 1 Result Diagram: 04/24/17 0808 Imaging Last Impressions Chest CT 04/22/17 0000 Signed Impressions: Service Date/Time: Saturday, April 22, 2017 15:56 - CONCLUSION: Infiltrate in the left lower lobe with a small left pleural effusion. Mixed density within the lung suspicious for pneumonia. Small left pleural effusion. Minimal consolidation right lower lobe posteriorly. Piero Puga MD Abdomen/Pelvis CT 04/21/17 0000 Signed Impressions: Service Date/Time: Saturday, April 22, 2017 15:56 - CONCLUSION: 1. Large juxtarenal saccular abdominal aortic aneurysm measuring up to 7.5 x 6.6 cm. There are also aneurysms involving the right common iliac artery and left common femoral artery, as above. No significant rupture or leak. 2. Nondistended loops of small bowel with fecalization of ileal loops particularly distally. This may reflect some degree of chronic adynamic ileus versus partial obstruction. 3. Atrophic end-stage appearing left kidney may reflect chronic ischemia or prior insult. 4. Multiple bilateral renal cysts with several cysts in the left kidney which are indeterminate in density. There is a 1.1 x 1.5 x 1.4 cm isodense lesion in the posterior mid right kidney which is isodense in density with indeterminate enhancement. Small renal cell carcinoma cannot be excluded. Consider renal mass protocol CT or MRI exam for further characterization. 5. Indeterminate density 1.1 x 0.7 cm left adrenal mass. 6. Trace left pleural effusion and left lower lobe airspace consolidation partially imaged on this exam. Please see CT chest report for details. Tutu Sharma MD Abdomen X-Ray 04/21/17 0000 Signed Impressions: Service Date/Time: Friday, April 21, 2017 13:39 - CONCLUSION: 1. Left basilar opacity is present may be due to a combination of consolidation and or pleural effusion. 2. Possible huge AAA and CT examination of the abdomen and pelvis is suggested to further characterize could be done without intravenous contrast. Juan M Keller MD Chest X-Ray 04/19/17 0000 Signed Impressions: Service Date/Time: Wednesday, April 19, 2017 09:40 - CONCLUSION: Improvement in aeration of the lungs. Juan M Keller MD Brain MRI 04/19/17 Signed Impressions: Service Date/Time: Wednesday, April 19, 2017 12:40 - CONCLUSION: 1. Cortical atrophy and microvascular ischemic demyelinative change. 2. Large areas of infarct involving a occipital cortex and the left cerebellar hemisphere. No acute infarct is seen. Hi Birch MD Head CT 04/18/17 Signed Impressions: Service Date/Time: April 11:15 - CONCLUSION: Stable chronic changes. Juan M Keller MD Neck CTA 04/12/17 Signed Impressions: Service Date/Time: Wednesday, April 12, 2017 15:59 - CONCLUSION: 1. Bulky calcified plaque at the origin of the left common carotid artery with resultant focal moderate to severe stenosis. No evidence for dissection as questioned. 2. Tenuous vertebral artery circulation with occluded left vertebral artery just beyond the origin and very small caliber right vertebral artery with likely tandem moderate stenoses at the origin and proximally. There is continuous flow from the right vertebral artery to the basilar artery with patent bilateral posterior commuting arteries. 3. Approximately 50%% stenosis of the proximal left internal carotid artery secondary to bulky calcified plaque. 4. No hemodynamically significant stenosis in the right carotid arteries. 5. Dilated proximal esophagus containing material. Clinical correlation is recommended. 6. Severe centrilobular emphysema in the lung apices. Tutu Sharma MD Neck Magnetic Resonance Angiography 04/11/17 0745 Signed Impressions: Service Date/Time: April 08:52 - CONCLUSION: Appearance worrisome for a possible intimal dissection involving the proximal left common carotid artery. Mild disease without significant stenosis at the carotid bifurcations bilaterally. Tenuous vertebral circulation as described. Further evaluation with CTA examination of the arch and carotids would be suggested. Murray Perrin MD Head Magnetic Resonance Angiography 04/11/17 0000 Signed Impressions: Service Date/Time: April 08:52 - CONCLUSION: 1. No evidence for large vessel occlusion, aneurysm, or vascular malformation involving the anterior situation. 2. Apparent occlusion of the distal right vertebral artery with small caliber left vertebral and small caliber basilar artery. The posterior communicating arteries are patent bilaterally. There is evidence for prior left cerebellar infarct indicating chronicity. Tutu Sharma MD Cervical Spine CT 04/11/17 0000 Signed Impressions: Service Date/Time: April 06:02 - CONCLUSION: 1. Minimal anterolisthesis C3 on C4. 2. No fracture. Chan Delgadillo MD Procedures None Other Results Laboratory Tests Test 04/21/17 04/22/17 04/24/17 07:08 09:45 08:08 C-Reactive Protein 5.40 MG/DL Vancomycin Level Trough 9.6 MCG/ML Sodium Level 135 MEQ/L Potassium Level 3.4 MEQ/L Chloride Level 99 MEQ/L Carbon Dioxide Level 31.1 MEQ/L Anion Gap 5 MEQ/L Blood Urea Nitrogen 32 MG/DL Creatinine 1.04 MG/DL Estimat Glomerular Filtration 69 ML/MIN Rate Random Glucose 107 MG/DL Calcium Level 8.3 MG/DL Magnesium Level 1.9 MG/DL Objective Remarks GENERAL: No acute distress. SKIN: Warm and dry. No rash. HEENT: Normocephalic. Right Frontal head contusion/ecchymosis. Pupils equal and round. Mucous membranes pink and moist. NECK: Supple. Trachea midline. CARDIOVASCULAR: Regular rate and rhythm. S1, S2 noted. No murmur appreciated. RESPIRATORY: Diffuse coarse breath sounds. GASTROINTESTINAL: Abdomen soft, slightly tender, nondistended. Normoactive bowel sounds x4. Abdominal pulses noted. MUSCULOSKELETAL: No obvious deformities. Extremities without clubbing, cyanosis , or edema. NEUROLOGICAL: Awake and alert. No obvious cranial nerve deficits. Moving upper and lower extremities. PSYCHIATRIC: Insight and judgment poor. Medications and IVs Current Medications Medications (Trade) Dose Ordered Sig/Paulo Route Start Time Stop Time Status Last Admin (NS Flush) 2 ml BID IV FLUSH 04/11/17 09:00 04/25/17 08:09 (NS Flush) 2 ml UNSCH PRN IV FLUSH 04/11/17 07:30 (Pravachol) 40 mg DAILY PO 04/11/17 09:00 04/25/17 08:08 (Flomax) 0.4 mg HS PO 04/12/17 21:00 04/24/17 21:23 (Flagyl) 500 mg Q8HR PO 04/13/17 14:00 04/27/17 13:59 04/25/17 07:30 (Vasotec Inj) 1.25 mg Q6H PRN IV PUSH 04/13/17 16:15 04/20/17 06:00 (Plavix) 75 mg DAILY PO 04/15/17 09:00 04/25/17 08:08 (Colace) 100 mg DAILY PO 04/15/17 12:30 Hold 04/18/17 08:35 (Pepcid) 20 mg BID PO 04/16/17 21:00 04/25/17 08:08 (Habitrol 21 Mg Patch.24 Hr) 1 patch DAILY T-DERMAL 04/16/17 12:00 04/25/17 08:09 Miscellaneous Information 1 DAILY T-DERMAL 04/17/17 09:00 04/25/17 08:09 (Tylenol) 650 mg Q4H PRN PO 04/16/17 13:45 04/16/17 18:39 Amlodipine Besylate 10 mg 10 mg DAILY PO 04/18/17 09:00 04/25/17 08:08 Piperacillin Sod/ Tazobactam Sod 100 ml @ 200 mls/hr Q6H IV 04/18/17 21:00 04/25/17 08:08 (Keppra Inj/NS Inj) 105 ml @ 420 mls/hr Q12HR IV 04/19/17 16:15 04/25/17 08:08 (Prinivil) 40 mg DAILY PO 04/21/17 09:00 04/25/17 08:08 (Ritalin Ir) 10 mg BID@07,12 PO 04/22/17 12:00 04/25/17 07:30 A/P Assessment and Plan 77-year-old male from [facility] with history of CVA, HLD, HTN, COPD, chronic pain, depression, presents after a fall with possible facial droop, concern for TIA/CVA Closed head injury: secondary to fall from bed, reportedly hit head on oxygen tank -Head CT with no acute findings. Repeat head CT stable. Transient ischemic attack: with possible facial droop upon arrival, now resolved. No TPA therapy initiated as patient's symptoms resolved -Continue statin, neurology added Plavix. -PT/OT/ST following. -Lipid profile wnl and HgbA1c 6.1 -Head CT and Brain MRI showed evidence of old infarcts, no acute findings -Head MRA shows occlusion of distal right vertebral artery; otherwise unremarkable -Neck MRA shows possible intimal dissection proximal left common carotid artery; recommends neck CTA -Neck CTA showed no dissection however with focal 50% stenosis at origin of left common carotid secondary to bulky calcified plaque -EEG unremarkable -Echocardiogram with EF 55-60%, mild MR, tract AR, mild TR -Holter monitoring essentially unremarkable, sinus rhythm with PACs -Neurology consulted, appreciate recommendations, started on Plavix. not yet cleared for discharge. C.Difficile Colitis: Stools have improved. -C. difficile PCR positive -started on Flagyl 500mg q8h [id number] after other antibiotics stopped AAA Noted on CT. Abdominal pulses noted on exam. - family and pt not interested in pursuing surgery. - blood pressure control. Healthcare Associated Pneumonia: patient noted to be coughing with upper airway congestion and rhonchi on exam -checked CXR 04/17 which showed bibasilar consolidative changes. Repeat chest x-ray 04/19 with improving aeration -Continue on antibiotics with IV Zosyn and Discontinue Vancomycin. -Blood culture 04/18 with NGTD -Repeat ABG 04/19 noted with improvement from previous -Lasix as needed. Dementia with Agitation: -Psychiatry consulted, recommended Haldol as needed. Neurology discontinued Haldol. -Changed Seroquel to Risperdal with poor by mouth intake. Risperdal held with encephalopathy. -consulted palliative care to assist with goals and fpc planning, planned follow-up with hospice consultation as outpatient -continue restraints prn and sitter at bedside for safety -Refusal to eat may be related to C-Diff. Consider Megace if no improvement. Checked calorie count, encouraged oral intake. -trial of steroids per neurology. Mentation improved. Hypertension: Uncontrolled Medicines adjusted and following. -Increase lisinopril. -Continue amlodipine and tamsulosin -Vasotec as needed. Acute encephalopathy: Suspect metabolic secondary to pneumonia vs underlying seizures. Possibly toxic with addition of antipsychotics for mood stabilization. -Continue antibiotics -neurology on board, appreciate assistance -Neurology started Keppra with possible underlying seizures. Also on steroids. -Repeat labs reviewed, stable awaiting final byt Neurology to Discharge. Partial SBO Noted on CT. - continue bowel regimen. Mineral oil enema ordered. DVT prophylaxis: SCDs The patient has chronic pathology and is expected that after discharge will come back for Re admission the patient is more suited for Hospice care but his Daughter decline this management he will be discharged in am tomorrow once cleared by Neurology. Discharge Planning Expected in am tomorrow after Neurology specialist Clearance. Kye Zaragoza MD Apr 25, 2017 11:31
[2017-04-25] MEDS ORDERED: PHARMACY ORDERED LAB ONE (11:45)
[2017-04-25] MEDS: TAMSULOSIN HCL 0.4 MG CAP PO SCH (22:38)
[2017-04-26] VITALS (7 sets, daily range): BP systolic 150–172; BP diastolic 69–88; PULSE 81–109; RESP 16–20; TEMP 98.5–98.8; O2SAT 90–95
[2017-04-26] MEDS: PIPERACIL-TAZO 4.5 GM PREMIX 100 ML IV SCH ×3 (03:08→14:03)
[2017-04-26] MEDS: RESP: ALBUTEROL 2.5 MG/IPRATROPIUM 0.5 MG NEB (PRN) NEB (04:49)
[2017-04-26] MEDS: METHYLPHENIDATE HCL 10 MG TAB PO SCH ×2 (06:12→14:03)
[2017-04-26] MEDS: metroNIDAZOLE 500 MG TAB PO SCH ×2 (06:12→14:03)
[2017-04-26] MEDS: REMOVE OLD PATCH T-DERMAL SCH (09:00)
[2017-04-26] MEDS: SODIUM CHLORIDE 0.9% FLUSH 5 ML FLUSH IV FLUSH SCH (09:00)
--- NOTE | 2017-04-26 09:04 | HHI.PR ---
Subjective Remarks even more alert now Objective Vital Signs Date Time Temp Pulse Resp B/P Pulse Ox O2 Delivery O2 Flow Rate FiO2 04/26/17 08:00 98.8 89 16 152/70 93 04/26/17 04:58 92 Nasal Cannula 6.00 04/26/17 04:00 98.5 86 20 164/81 92 04/26/17 02:00 109 04/26/17 00:00 98.8 94 20 172/88 91 04/25/17 23:57 18 172/85 94 04/25/17 20:00 99.7 98 18 171/91 91 04/25/17 16:34 98.4 84 20 182/91 91 04/25/17 11:56 98.1 87 20 174/81 94 I/O 04/25/17 04/25/17 04/25/17 04/26/17 04/26/17 04/26/17 07:00 15:00 23:00 07:00 15:00 23:00 Intake Total 940 ml Balance 940 ml IV Total 940 ml # Voids 4 1 2 # Bowel Movements 1 1 Result Diagram: 04/24/17 0808 Procedures None Objective Remarks awakens holds arms up bilat a little less left than r Assessment and Plan Assessment and Plan imp eeg neg no new cva bilat old occipital and cbllr cva no new cva creat nl mra cow pcomms strong bilat vb small throughout echo and holter neg he is on statin ldl nl the left cca stenosis appears asx and i would rx just plavix and statin ok dc back to [facility] 04/19/17 some decompensation check abg mri eeg and dc sedatives i suspect he will bounce back 04/20/17 not much change mri nothing new eeg some triphasic like metabolic likey but i started keppra in case unwitnessed sz abg ok on abt should awaken slowwly as b4 ---- 04/21/17 no change recheck eeg on keppra may be postictal? try a steroid dose see if wakes up keep na up 04/22/17 no better crp [address] chest and abd try ritalin and steroids eeg slow but better 04/23/17 he looks better today ct chest pneumonia ct abd aaa and renal mass adrenal mass? defer to med team basilio brizuela 04/24/17 much better today possible he had unwitness sue richmond 04/25/17 did well all day yest little groggy this am PT OOB dc maybe in am? 04/26/17 better q day would like to get oob with PT if possible could go back to [place] [facility] i will fu saturday Marv Christie MD Apr 26, 2017 09:04
--- NOTE | 2017-04-26 09:04 | HHI.PR ---
Subjective Remarks This is a pleasant 77 y/o Male who is Oxygen dependent COPD, stroke, Hypertension, Chronic pain syndrome GERD, Who presented to the ED via EMS on 04/11/17 for evaluation of injuries secondary to mechanical fall, noted for left-sided facial droop, unclear if new onset or baseline secondary to prior CVA. Head CT negative for acute process, or infarcts noted. Likely TIA. Patient with active C. difficile infection. Psychiatry, Dr. Torres until following secondary to agitation. Patient has been declining/refusing to work with physical therapy and has only been eating small amounts of food. Palliative care has been consulted for further clarifications of goals of care given chronic comorbidities, the likelihood of advanced dementia and treatment refusal. Neurology specialist following, also fire management specialist following, continue with Persistent Encephalopathy, the plan is to return to Skilled Nursing at discharge, he has Dementia, is DNR/DNI , as per his Daughter the goal is to continue with Conservative management and return to SNF, Psychiatry specialist recommended to discontinue home medicines. As per Neurology specialist EEG negative, no new CVA, Echocardiogram and Holter Monitoring negative, he is on statins, he had unwitnessed Seizure, to continue Keppra, CT chest showing Pneumonia, CT abdominal AAA adrenal mass questioned. Seen in his bedroom and discussed with nurse Miss Gilliland, he needed today to be placed on Non rebreather mask due to Oxygen saturation in 80s, at this time stable, confused. 04/25: Patient seen in his bedroom discussed with nurse, stable more alert and oriented, on nasal Cannula only and maintain good oxygen saturation, no nausea, vomit or diarrhea. 04/26: Patient seen in his bedroom, discussed with nurse Miss Miller, at the time of this evaluation the patient is not wearing Oxygen but he may need 4 Liters/min. on Nasal Cannula. no nausea, vomit or diarrhea. tried to call his Daughter Miss Svetlana Boogie to the Phone number [phone] but no answer I left a message, I wanted to update her about her father discharge. Objective Vital Signs Date Time Temp Pulse Resp B/P Pulse Ox O2 Delivery O2 Flow Rate FiO2 04/26/17 08:00 98.8 89 16 152/70 93 04/26/17 04:58 92 Nasal Cannula 6.00 04/26/17 04:00 98.5 86 20 164/81 92 04/26/17 02:00 109 7/21/17 00:00 98.8 94 20 172/88 91 04/25/17 23:57 18 172/85 94 04/25/17 20:00 99.7 98 18 171/91 91 04/25/17 16:34 98.4 84 20 182/91 91 04/25/17 11:56 98.1 87 20 174/81 94 I/O 04/25/17 04/25/17 04/25/17 04/26/17 04/26/17 04/26/17 07:00 15:00 23:00 07:00 15:00 23:00 Intake Total 940 ml Balance 940 ml IV Total 940 ml # Voids 4 1 2 # Bowel Movements 1 1 Result Diagram: 04/24/17 0808 Imaging Last Impressions Chest CT 04/22/17 0000 Signed Impressions: Service Date/Time: Saturday, April 22, 2017 15:56 - CONCLUSION: Infiltrate in the left lower lobe with a small left pleural effusion. Mixed density within the lung suspicious for pneumonia. Small left pleural effusion. Minimal consolidation right lower lobe posteriorly. Piero Puga MD Abdomen/Pelvis CT 04/21/17 0000 Signed Impressions: Service Date/Time: Saturday, April 22, 2017 15:56 - CONCLUSION: 1. Large juxtarenal saccular abdominal aortic aneurysm measuring up to 7.5 x 6.6 cm. There are also aneurysms involving the right common iliac artery and left common femoral artery, as above. No significant rupture or leak. 2. Nondistended loops of small bowel with fecalization of ileal loops particularly distally. This may reflect some degree of chronic adynamic ileus versus partial obstruction. 3. Atrophic end-stage appearing left kidney may reflect chronic ischemia or prior insult. 4. Multiple bilateral renal cysts with several cysts in the left kidney which are indeterminate in density. There is a 1.1 x 1.5 x 1.4 cm isodense lesion in the posterior mid right kidney which is isodense in density with indeterminate enhancement. Small renal cell carcinoma cannot be excluded. Consider renal mass protocol CT or MRI exam for further characterization. 5. Indeterminate density 1.1 x 0.7 cm left adrenal mass. 6. Trace left pleural effusion and left lower lobe airspace consolidation partially imaged on this exam. Please see CT chest report for details. Tutu Shamra MD Abdomen X-Ray 04/21/17 0000 Signed Impressions: Service Date/Time: Friday, April 21, 2017 13:39 - CONCLUSION: 1. Left basilar opacity is present may be due to a combination of consolidation and or pleural effusion. 2. Possible huge AAA and CT examination of the abdomen and pelvis is suggested to further characterize could be done without intravenous contrast. Juan M Keller MD Chest X-Ray 04/19/17 0000 Signed Impressions: Service Date/Time: Wednesday, April 19, 2017 09:40 - CONCLUSION: Improvement in aeration of the lungs. Juan M Keller MD Brain MRI 04/19/17 0000 Signed Impressions: Service Date/Time: Wednesday, April 19, 2017 12:40 - CONCLUSION: 1. Cortical atrophy and microvascular ischemic demyelinative change. 2. Large areas of infarct involving a occipital cortex and the left cerebellar hemisphere. No acute infarct is seen. Hi Birch MD Head CT 04/18/17 0000 Signed Impressions: Service Date/Time: April 11:15 - CONCLUSION: Stable chronic changes. Juan M Keller MD Neck CTA 04/12/17 0000 Signed Impressions: Service Date/Time: Wednesday, April 12, 2017 15:59 - CONCLUSION: 1. Bulky calcified plaque at the origin of the left common carotid artery with resultant focal moderate to severe stenosis. No evidence for dissection as questioned. 2. Tenuous vertebral artery circulation with occluded left vertebral artery just beyond the origin and very small caliber right vertebral artery with likely tandem moderate stenoses at the origin and proximally. There is continuous flow from the right vertebral artery to the basilar artery with patent bilateral posterior commuting arteries. 3. Approximately 50%% stenosis of the proximal left internal carotid artery secondary to bulky calcified plaque. 4. No hemodynamically significant stenosis in the right carotid arteries. 5. Dilated proximal esophagus containing material. Clinical correlation is recommended. 6. Severe centrilobular emphysema in the lung apices. Tutu Sharma MD Neck Magnetic Resonance Angiography 04/11/17 0745 Signed Impressions: Service Date/Time: April 08:52 - CONCLUSION: Appearance worrisome for a possible intimal dissection involving the proximal left common carotid artery. Mild disease without significant stenosis at the carotid bifurcations bilaterally. Tenuous vertebral circulation as described. Further evaluation with CTA examination of the arch and carotids would be suggested. Murray Perrin MD Head Magnetic Resonance Angiography 04/11/17 0000 Signed Impressions: Service Date/Time: April 08:52 - CONCLUSION: 1. No evidence for large vessel occlusion, aneurysm, or vascular malformation involving the anterior situation. 2. Apparent occlusion of the distal right vertebral artery with small caliber left vertebral and small caliber basilar artery. The posterior communicating arteries are patent bilaterally. There is evidence for prior left cerebellar infarct indicating chronicity. Tutu Sharma MD Cervical Spine CT 04/11/17 0000 Signed Impressions: Service Date/Time: April 06:02 - CONCLUSION: 1. Minimal anterolisthesis C3 on C4. 2. No fracture. Chan Delgadillo MD Procedures None Other Results Laboratory Tests Test 04/22/17 04/24/17 09:45 08:08 Vancomycin Level Trough 9.6 MCG/ML Sodium Level 135 MEQ/L Potassium Level 3.4 MEQ/L Chloride Level 99 MEQ/L Carbon Dioxide Level 31.1 MEQ/L Anion Gap 5 MEQ/L Blood Urea Nitrogen 32 MG/DL Creatinine 1.04 MG/DL Estimat Glomerular Filtration 69 ML/MIN Rate Random Glucose 107 MG/DL Calcium Level 8.3 MG/DL Magnesium Level 1.9 MG/DL Objective Remarks GENERAL: No acute distress. SKIN: Warm and dry. No rash. HEENT: Normocephalic. Right Frontal head contusion/ecchymosis. Pupils equal and round. Mucous membranes pink and moist. NECK: Supple. Trachea midline. CARDIOVASCULAR: Regular rate and rhythm. S1, S2 noted. No murmur appreciated. RESPIRATORY: Decreased breath sounds and no wheezing or crackles. GASTROINTESTINAL: Abdomen soft, slightly tender, nondistended. Normoactive bowel sounds x4. Abdominal pulses noted. MUSCULOSKELETAL: No obvious deformities. Extremities without clubbing, cyanosis , or edema. NEUROLOGICAL: Awake and alert. No obvious cranial nerve deficits. Moving upper and lower extremities. PSYCHIATRIC: Insight and judgment poor. Medications and IVs Current Medications Medications (Trade) Dose Ordered Sig/Paulo Route Start Time Stop Time Status Last Admin (NS Flush) 2 ml BID IV FLUSH 04/11/17 09:00 04/25/17 21:00 (NS Flush) 2 ml UNSCH PRN IV FLUSH 04/11/17 07:30 (Pravachol) 40 mg DAILY PO 04/11/17 09:00 04/25/17 08:08 (Flomax) 0.4 mg HS PO 04/12/17 21:00 04/25/17 22:38 (Flagyl) 500 mg Q8HR PO 04/13/17 14:00 04/27/17 13:59 04/26/17 06:12 (Vasotec Inj) 1.25 mg Q6H PRN IV PUSH 04/13/17 16:15 04/20/17 06:00 (Plavix) 75 mg DAILY PO 04/15/17 09:00 04/25/17 08:08 (Colace) 100 mg DAILY PO 04/15/17 12:30 Hold 04/18/17 08:35 (Pepcid) 20 mg BID PO 04/16/17 21:00 04/25/17 22:38 (Habitrol 21 Mg Patch.24 Hr) 1 patch DAILY T-DERMAL 04/16/17 12:00 04/25/17 08:09 Miscellaneous Information 1 DAILY T-DERMAL 04/17/17 09:00 04/25/17 08:09 (Tylenol) 650 mg Q4H PRN PO 04/16/17 13:45 04/16/17 18:39 Amlodipine Besylate 10 mg 10 mg DAILY PO 04/18/17 09:00 04/25/17 08:08 Piperacillin Sod/ Tazobactam Sod 100 ml @ 200 mls/hr Q6H IV 04/18/17 21:00 04/26/17 03:08 (Keppra Inj/NS Inj) 105 ml @ 420 mls/hr Q12HR IV 04/19/17 16:15 04/25/17 22:37 (Prinivil) 40 mg DAILY PO 04/21/17 09:00 04/25/17 08:08 (Ritalin Ir) 10 mg BID@07,12 PO 04/22/17 12:00 04/26/17 06:12 A/P Assessment and Plan 77-year-old male from [facility] with history of CVA, HLD, HTN, COPD, chronic pain, depression, presents after a fall with possible facial droop, concern for TIA/CVA Closed head injury: secondary to fall from bed, reportedly hit head on oxygen tank -Head CT with no acute findings. Repeat head CT stable. Transient ischemic attack: with possible facial droop upon arrival, now resolved. No TPA therapy initiated as patient's symptoms resolved -Continue statin, neurology added Plavix. -PT/OT/ST following. -Lipid profile wnl and HgbA1c 6.1 -Head CT and Brain MRI showed evidence of old infarcts, no acute findings -Head MRA shows occlusion of distal right vertebral artery; otherwise unremarkable -Neck MRA shows possible intimal dissection proximal left common carotid artery; recommends neck CTA -Neck CTA showed no dissection however with focal 50% stenosis at origin of left common carotid secondary to bulky calcified plaque -EEG unremarkable -Echocardiogram with EF 55-60%, mild MR, tract AR, mild TR -Holter monitoring essentially unremarkable, sinus rhythm with PACs -Neurology consulted, appreciate recommendations, started on Plavix. cleared for discharge. C.Difficile Colitis: Stools have improved. -C. difficile PCR positive -started on Flagyl 500mg q8h [id number] until tomorrow. AAA Noted on CT. Abdominal pulses noted on exam. - family and pt not interested in pursuing surgery. - blood pressure control. Healthcare Associated Pneumonia: patient noted to be coughing with upper airway congestion and rhonchi on exam -checked CXR 04/17 which showed bibasilar consolidative changes. Repeat chest x-ray 04/19 with improving aeration -Continue on antibiotics with IV Zosyn and Discontinue Vancomycin. discontinued Zosyn. -Blood culture 04/18 with NGTD -Repeat ABG 04/19 noted with improvement from previous -Lasix as needed. Dementia with Agitation: -Psychiatry consulted, recommended Haldol as needed. Neurology discontinued Haldol. -Changed Seroquel to Risperdal with poor by mouth intake. Risperdal held with encephalopathy. -consulted palliative care to assist with goals and care home planning, poor short term Prognosis. -continue restraints prn and sitter at bedside for safety -Refusal to eat may be related to C-Diff. Consider Megace if no improvement. Checked calorie count, encouraged oral intake. -trial of steroids per neurology. Mentation improved. Hypertension: Controlled. Acute encephalopathy: Suspect metabolic secondary to pneumonia vs underlying seizures. Possibly toxic with addition of antipsychotics for mood stabilization. -Continue antibiotics -neurology on board, appreciate assistance -Neurology started Keppra with possible underlying seizures. Also on steroids. DVT prophylaxis: SCDs Patient ready for discharge as per Neurology specialist Tried to call his Daughter Miss Svetlana Boogie to the phone number [phone], but no answer and left Message Expected Readmission the patient is frail and apply for Hospice care but not accepted by his Daughter he has Poor short term prognosis, has Severe and end stage COPD on Oxygen dependency. Discharge Planning Discharge to SNF Kye Zaragoza MD Apr 26, 2017 09:04
[2017-04-26] MEDS: FAMOTIDINE 20 MG TAB PO SCH (09:46)
[2017-04-26] MEDS: CLOPIDOGREL 75 MG TAB PO SCH (09:46)
[2017-04-26] MEDS: amLODIPine BESYLATE 5 MG TAB PO SCH (09:46)
[2017-04-26] MEDS: LISINOPRIL 20 MG TAB PO SCH (09:46)
[2017-04-26] MEDS: levETIRAcetam INJ 500 MG in SODIUM CHLORIDE 0.9% INJ 100 ML IV SCH (09:47)
[2017-04-26] MEDS: PRAVASTATIN SOD 40 MG TAB PO SCH (10:04)
[2017-04-26] MEDS: NICOTINE 21 MG/24 HR PATCH T-DERMAL SCH (10:04)
--- NOTE | 2017-04-26 11:43 | HHI.HCPN ---
Reason for visit a. To assist with evaluation and management of symptoms including: Debility. b. To assist medical decision maker(s) with: better understanding of current medical conditions; weighing benefits/burdens of medical treatment options; making medical treatment decisions. . Subjective/Interval History Mr. Camp is a 77-year-old male with a medical history of O2 dependent COPD, stroke, hypertension, chronic pain and GERD who presented to the ED via EMS on for evaluation of injuries secondary to mechanical fall. Upon arrival, patient was noted for left-sided facial droop, unclear if new onset or baseline secondary to prior CVA. Head CT negative for acute process, or infarcts noted. Likely TIA. Patient with active C. difficile infection. Psychiatry, Dr. Torres until following secondary to agitation. Patient has been declining/ refusing to work with physical therapy and has only been eating small amounts of food. Palliative care has been consulted for further clarifications of goals of care given chronic comorbidities, the likelihood of advanced dementia and treatment refusal. Patient seen in his room, he was resting in bed in no acute distress. Patient alert to self, confused as to place and situation. Alert and interactive, verbal. Denies pain or discomfort at this time. Following some simple commands. A febrile, hypertensive with SBP in the 150s to 160s. O2 via nasal cannula at 4 L, oxygen saturation in the low to mid 90s. Patient has been cleared by neurology for discharge. Discussed with counter caser Emily, patient to return to [facility]. Telephone conversation with patient's daughter Chuyita. Medical update provided. Daughter reports that patient uses oxygen at bedtime. Daughter wishing for patient to return to [facility] as soon as possible. . Family/friend interactions See interval note. . Advance Directives Living Will: Copy in medical record Health Care Surrogate: Copy in medical record Durable Power of Associate Scientist: Never completed Advance Directive Specifics Date completed: 06/08/2011. . Health Care Surrogate(s): [facility] daughter Chuyita Mota . Documented care wishes: Living will with standard verbiage as it relates to terminal condition and life- prolonging measures. . Significant change in goals: Goals of care unchanged. . Objective Vital Signs Date Time Temp Pulse Resp B/P Pulse Ox O2 Delivery O2 Flow Rate FiO2 04/26/17 08:00 98.8 89 16 152/70 93 04/26/17 04:58 92 Nasal Cannula 6.00 04/26/17 04:00 98.5 86 20 164/81 92 04/26/17 02:00 109 04/26/17 00:00 98.8 94 20 172/88 91 04/25/17 23:57 18 172/85 94 04/25/17 20:00 99.7 98 18 171/91 91 04/25/17 16:34 98.4 84 20 182/91 91 04/25/17 11:56 98.1 87 20 174/81 94 Intake & Output 04/26/17 04/26/17 06:59 18:59 Intake Total 940 ml Balance 940 ml IV Total 940 ml # Voids 3 # Bowel Movements 1 Physical Exam CONSTITUTIONAL/GENERAL: This is an adequately nourished elderly patient in no apparent distress. TUBES/LINES/DRAINS: PIV's. SKIN: No jaundice, rashes, or lesions. Ecchymoses on upper extremities, right lower leg. No wounds seen anteriorly. Large right periorbital ecchymosis. HEAD: Atraumatic. Normocephalic. EYES: No scleral icterus. No injection or drainage. Patient is legally blind. ENT: Hearing grossly normal. Nose without bleeding or purulent drainage. Moist oral mucosa. NECK: Trachea midline. Supple, nontender. CARDIOVASCULAR: Regular rate and rhythm without murmurs, gallops, or rubs. No JVD. Peripheral pulses symmetric. RESPIRATORY/CHEST: Symmetric, unlabored respirations. Clear, diminished to auscultation. Breath sounds equal bilaterally. No wheezes, rales, or rhonchi. O2 via nasal cannula at 4 L. GASTROINTESTINAL: Abdomen soft, tender to touch, mildly distended. No guarding. Bowel sounds present. GENITOURINARY: Without palpable bladder distension. MUSCULOSKELETAL: Extremities without clubbing, cyanosis, or edema. NEUROLOGICAL: Alert to self, disoriented as to place and situation. More interactive today. Following some simple commands. Answering questions. PSYCHIATRIC: Calm. . Diagnostic Tests Laboratory Laboratory Tests Test 04/24/17 08:08 Sodium Level 135 MEQ/L (136-145) Potassium Level 3.4 MEQ/L (3.5-5.1) Chloride Level 99 MEQ/L (98-107) Carbon Dioxide Level 31.1 MEQ/L (21.0-32.0) Anion Gap 5 MEQ/L (5-15) Blood Urea Nitrogen 32 MG/DL (7-18) Creatinine 1.04 MG/DL (0.60-1.30) Estimat Glomerular Filtration 69 ML/MIN (>89) Rate Random Glucose 107 MG/DL (74-106) Calcium Level 8.3 MG/DL (8.5-10.1) Magnesium Level 1.9 MG/DL (1.5-2.5) Result Diagram: 04/24/17 0808 Assessment and Plan Disease Oriented Problem List: (1) TIA (transient ischemic attack) (2) C. difficile diarrhea (3) Altered mental status Symptom Scale: (1) Pain 0-10 Scale: Unable to quantify Comment: History of chronic pain. (2) Agitation 0-10 Scale: 0 Comment: Likely secondary to dementia with behavioral disturbances. (3) Debility 0-10 Scale: Unable to quantify Comment: Progressive. Pertinent Non-Medical Issues Psychosocial: . Has 3 children. Originally from [place]. No service. Spiritual: Hindu raji. Legal: Pending copy of designation of healthcare surrogate. Ethical issues impacting care: Patient unable to participate in medical decision -making, daughter Chuyita acting as HCS. . Important Contacts HCS/daughter Chuyita Mota . . Prognosis Mr. Camp is a 77-year-old male with a medical history of O2 dependent COPD, stroke, hypertension, chronic pain and GERD who presented to the ED via EMS on . Patient with TIA, C. difficile and likely dementia with behavioral disturbances. Patient has been a long-term resident of senior care for the past 15 years. Patient at high risk of further complications, continue decline and . . Code Status: No Code Plan * CODE STATUS: No code. DNR/DNI. Community DNR in file. * HEALTHCARE DECISION MAKING: Patient unable to participate in medical decision- making secondary to clinical condition, confusion. Patient's daughter Chuyita Mota reports that she is the designated HCS, pending copy of documents from [facility]. * GOALS OF CARE: 04/26/17 -As per patient's daughter, goal of therapy is to continue with conservative management short of NO code/NO peg/NO NG tube with the goal to return patient to his long-term facility -[facility]. Patient has been cleared by neurology for discharge. Discussed with patient's daughter the future role of hospice should patient's clinical condition continues to worsen or there is additional functional decline. Daughter receptive to this. * SYMPTOMS: = Agitation, psychiatry consulted. Risperdal and Seroquel has been discontinued secondary to AMS. = Pain, history of chronic pain. Tylenol available as needed. = Debility, senior care long-term resident for the past 15 years. = AMS: Patient was started on trial of Ritalin, neurology following. = Decreased appetite and oral intake: Calorie count completed on 04/19/17, Becky, Ensure an emergency room physician assistant with feedings recommended. Patient more interactive now, increased oral intake. * Case discussed with OSMIN Diaz. * Palliative care contact information has been provided to patient's daughter Chuyita. * Palliative care will continue to follow-up as needed for further clarifications of goals of care as patient's clinical course continues to evolve. . Time Spent Total Floor Time (mins): 24 (Total time to include review medical records, physical exam, telephone conversation with patient's daughter and case discussion with counter caser.) >50% Counseling/Coord of Care: Yes Attestation To help prompt me to consider important information that might be impacting today's encounter and assessment, information from prior notes written by myself or my colleagues may have been "brought forward" into today's note. My signature on this note, however, is an attestation that I personally performed the exam, history, and/or decision-making noted today, and, unless otherwise indicated, the interactions with patient, family, and staff as well as the review of records all occurred today. I also attest that the listed assessment and stated plan reflect my best clinical judgment today based on the combination of historical information, prior notes, and today's exam/ interactions. When time spent is documented, it refers only to time spent today by the signer, or if indicated, combined time spent today by collaborating physician/nurse practitioner. Jada Smith Apr 26, 2017 11:43
[2017-04-26] MEDS ORDERED: PLAV75TA29 PO (15:31)
[2017-04-26] MEDS ORDERED: NICO21DI25 T-DERMAL (15:31)
[2017-04-26] MEDS ORDERED: DOCU1CAP39 PO (15:31)
[2017-04-26] MEDS ORDERED: AMLO5 PO (15:31)
[2017-04-26] MEDS ORDERED: METR-1 PO (15:31)
[2017-04-26] MEDS ORDERED: IPRASOL NEB (15:31)
[2017-04-26] MEDS ORDERED: LISI-515 PO (15:31)
[2017-04-26] MEDS ORDERED: METHY10 PO (15:31)
--- NOTE | 2017-04-26 16:36 | HHI.DS ---
Discharge Summary Admission Date Apr 13, 2017 at 10:53 Discharge Date: Apr 26, 2017 Admitting Diagnosis TIA vs Closed head injury. (1) TIA (transient ischemic attack) ICD Code: G45.9 Diagnosis: Principal (2) Closed head injury ICD Code: S09.90XA Diagnosis: Principal Procedures None Brief History - From Admission 77-year-old male with prior history of CVA, hyperlipidemia was brought to the ED from a local nursing facility for evaluation of an acute onset of mid left facial droop along with eyes to be related to the right following a fall out of bed this morning as a result of which patient if he sits on the right oxygen concentrator. Her EMR, patient was more responsive then became groggy and was told to have a mid level facial droop along with eyes deviated to the right. He was immediately sent to the ED by EMS, however on arrival patient's symptoms seem to have resolved but neurology was consulted. Again per EMR, a call was placed at patient's nursing facility however no one was able to return phone calls and patient was deemed to be outside of the time zone for TPA therapy. Head CT was negative. During my exam patient appears to be stable. CBC/BMP: 04/24/17 0808 Significant Findings Laboratory Tests Test 04/24/17 08:08 Sodium Level 135 MEQ/L (136-145) Potassium Level 3.4 MEQ/L (3.5-5.1) Blood Urea Nitrogen 32 MG/DL (7-18) Estimat Glomerular Filtration 69 ML/MIN (>89) Rate Random Glucose 107 MG/DL (74-106) Calcium Level 8.3 MG/DL (8.5-10.1) Imaging Last Impressions Chest CT 04/22/17 0000 Signed Impressions: Service Date/Time: Saturday, April 22, 2017 15:56 - CONCLUSION: Infiltrate in the left lower lobe with a small left pleural effusion. Mixed density within the lung suspicious for pneumonia. Small left pleural effusion. Minimal consolidation right lower lobe posteriorly. Piero Puga MD Abdomen/Pelvis CT 04/21/17 0000 Signed Impressions: Service Date/Time: Saturday, April 22, 2017 15:56 - CONCLUSION: 1. Large juxtarenal saccular abdominal aortic aneurysm measuring up to 7.5 x 6.6 cm. There are also aneurysms involving the right common iliac artery and left common femoral artery, as above. No significant rupture or leak. 2. Nondistended loops of small bowel with fecalization of ileal loops particularly distally. This may reflect some degree of chronic adynamic ileus versus partial obstruction. 3. Atrophic end-stage appearing left kidney may reflect chronic ischemia or prior insult. 4. Multiple bilateral renal cysts with several cysts in the left kidney which are indeterminate in density. There is a 1.1 x 1.5 x 1.4 cm isodense lesion in the posterior mid right kidney which is isodense in density with indeterminate enhancement. Small renal cell carcinoma cannot be excluded. Consider renal mass protocol CT or MRI exam for further characterization. 5. Indeterminate density 1.1 x 0.7 cm left adrenal mass. 6. Trace left pleural effusion and left lower lobe airspace consolidation partially imaged on this exam. Please see CT chest report for details. Tutu Sharma MD Abdomen X-Ray 04/21/17 0000 Signed Impressions: Service Date/Time: Friday, April 21, 2017 13:39 - CONCLUSION: 1. Left basilar opacity is present may be due to a combination of consolidation and or pleural effusion. 2. Possible huge AAA and CT examination of the abdomen and pelvis is suggested to further characterize could be done without intravenous contrast. Juan M Keller MD Chest X-Ray 04/19/17 0000 Signed Impressions: Service Date/Time: Wednesday, April 19, 2017 09:40 - CONCLUSION: Improvement in aeration of the lungs. Juan M Keller MD Brain MRI 04/19/17 0000 Signed Impressions: Service Date/Time: Wednesday, April 19, 2017 12:40 - CONCLUSION: 1. Cortical atrophy and microvascular ischemic demyelinative change. 2. Large areas of infarct involving a occipital cortex and the left cerebellar hemisphere. No acute infarct is seen. Hi Birch MD Head CT 04/18/17 0000 Signed Impressions: Service Date/Time: April 11:15 - CONCLUSION: Stable chronic changes. Juan M Keller MD Neck CTA 04/12/17 0000 Signed Impressions: Service Date/Time: Wednesday, April 12, 2017 15:59 - CONCLUSION: 1. Bulky calcified plaque at the origin of the left common carotid artery with resultant focal moderate to severe stenosis. No evidence for dissection as questioned. 2. Tenuous vertebral artery circulation with occluded left vertebral artery just beyond the origin and very small caliber right vertebral artery with likely tandem moderate stenoses at the origin and proximally. There is continuous flow from the right vertebral artery to the basilar artery with patent bilateral posterior commuting arteries. 3. Approximately 50%% stenosis of the proximal left internal carotid artery secondary to bulky calcified plaque. 4. No hemodynamically significant stenosis in the right carotid arteries. 5. Dilated proximal esophagus containing material. Clinical correlation is recommended. 6. Severe centrilobular emphysema in the lung apices. Tutu Sharma MD Neck Magnetic Resonance Angiography 04/11/17 0745 Signed Impressions: Service Date/Time: April 08:52 - CONCLUSION: Appearance worrisome for a possible intimal dissection involving the proximal left common carotid artery. Mild disease without significant stenosis at the carotid bifurcations bilaterally. Tenuous vertebral circulation as described. Further evaluation with CTA examination of the arch and carotids would be suggested. Murray Perrin MD Head Magnetic Resonance Angiography 04/11/17 0000 Signed Impressions: Service Date/Time: April 08:52 - CONCLUSION: 1. No evidence for large vessel occlusion, aneurysm, or vascular malformation involving the anterior situation. 2. Apparent occlusion of the distal right vertebral artery with small caliber left vertebral and small caliber basilar artery. The posterior communicating arteries are patent bilaterally. There is evidence for prior left cerebellar infarct indicating chronicity. Tutu Sharma MD Cervical Spine CT 04/11/17 0000 Signed Impressions: Service Date/Time: April 06:02 - CONCLUSION: 1. Minimal anterolisthesis C3 on C4. 2. No fracture. Chan Delgadillo MD PE at Discharge GENERAL: No acute distress. Confused, denotes chronic illness. SKIN: Multiple ecchymosis on both arms and legs. HEENT: Normocephalic. Right Frontal head contusion/ecchymosis. Pupils equal and round. Mucous membranes pink and moist. NECK: Supple. Trachea midline. CARDIOVASCULAR: Regular rate and rhythm. S1, S2 noted. No murmur appreciated. RESPIRATORY: Decreased breath sounds and no wheezing or crackles. GASTROINTESTINAL: Abdomen soft, slightly tender, nondistended. Normoactive bowel sounds x4. Abdominal pulses noted. MUSCULOSKELETAL: No obvious deformities. Extremities without clubbing, cyanosis , or edema. NEUROLOGICAL: Awake and alert. No obvious cranial nerve deficits. Moving upper and lower extremities. PSYCHIATRIC: Insight and judgment poor. Hospital Course This is a pleasant 77 y/o Male who is Oxygen dependent COPD, stroke, Hypertension, Chronic pain syndrome GERD, Who presented to the ED via EMS on 04/11/17 for evaluation of injuries secondary to mechanical fall, noted for left-sided facial droop, unclear if new onset or baseline secondary to prior CVA. Head CT negative for acute process, or infarcts noted. Likely TIA. Patient with active C. difficile infection. Psychiatry, Dr. Torres until following secondary to agitation. Patient has been declining/refusing to work with physical therapy and has only been eating small amounts of food. Palliative care has been consulted for further clarifications of goals of care given chronic comorbidities, the likelihood of advanced dementia and treatment refusal. Neurology specialist following, also seed specialist following, continue with Persistent Encephalopathy, the plan is to return to [facility] at discharge, he has Dementia, is DNR/DNI , as per his Daughter the goal is to continue with Conservative management and return to SNF, Psychiatry specialist recommended to discontinue home medicines. As per Neurology specialist EEG negative, no new CVA, Echocardiogram and Holter Monitoring negative, he is on statins, he had unwitnessed Seizure, to continue Keppra, CT chest showing Pneumonia, CT abdominal AAA adrenal mass questioned. Seen in his bedroom and discussed with nurse Miss Gilliland, he needed today to be placed on Non rebreather mask due to Oxygen saturation in 80s, at this time stable, confused. 04/25: Patient seen in his bedroom discussed with nurse, stable more alert and oriented, on nasal Cannula only and maintain good oxygen saturation, no nausea, vomit or diarrhea. 04/26: Patient seen in his bedroom, discussed with nurse Miss Miller, at the time of this evaluation the patient is not wearing Oxygen but he may need 4 Liters/min. on Nasal Cannula. no nausea, vomit or diarrhea. tried to call his Daughter Miss Svetlana Chuyita to the Phone number [phone] but no answer I left a message, I wanted to update her about her father discharge. Assessment and Plan 77-year-old male from [facility] with history of CVA, HLD, HTN, COPD, chronic pain, depression, presents after a fall with possible facial droop, concern for TIA/CVA Closed head injury: secondary to fall from bed, reportedly hit head on oxygen tank -Head CT with no acute findings. Repeat head CT stable. Transient ischemic attack: with possible facial droop upon arrival, now resolved. No TPA therapy initiated as patient's symptoms resolved -Continue statin, neurology added Plavix. -PT/OT/ST following. -Lipid profile wnl and HgbA1c 6.1 -Head CT and Brain MRI showed evidence of old infarcts, no acute findings -Head MRA shows occlusion of distal right vertebral artery; otherwise unremarkable -Neck MRA shows possible intimal dissection proximal left common carotid artery; recommends neck CTA -Neck CTA showed no dissection however with focal 50% stenosis at origin of left common carotid secondary to bulky calcified plaque -EEG unremarkable -Echocardiogram with EF 55-60%, mild MR, tract AR, mild TR -Holter monitoring essentially unremarkable, sinus rhythm with PACs -Neurology consulted, appreciate recommendations, started on Plavix. cleared for discharge. C.Difficile Colitis: Stools have improved. -C. difficile PCR positive -started on Flagyl 500mg q8h [id number] until tomorrow. AAA Noted on CT. Abdominal pulses noted on exam. - family and pt not interested in pursuing surgery. - blood pressure control. Healthcare Associated Pneumonia: patient noted to be coughing with upper airway congestion and rhonchi on exam -checked CXR 04/17 which showed bibasilar consolidative changes. Repeat chest x-ray 04/19 with improving aeration -Continue on antibiotics with IV Zosyn and Discontinue Vancomycin. discontinued Zosyn. -Blood culture 04/18 with NGTD -Repeat ABG 04/19 noted with improvement from previous -Lasix as needed. Dementia with Agitation: -Psychiatry consulted, recommended Haldol as needed. Neurology discontinued Haldol. -Changed Seroquel to Risperdal with poor by mouth intake. Risperdal held with encephalopathy. -consulted palliative care to assist with goals and correction planning, poor short term Prognosis. -continue restraints prn and sitter at bedside for safety -Refusal to eat may be related to C-Diff. Consider Megace if no improvement. Checked calorie count, encouraged oral intake. -trial of steroids per neurology. Mentation improved. Hypertension: Controlled. Acute encephalopathy: Suspect metabolic secondary to pneumonia vs underlying seizures. Possibly toxic with addition of antipsychotics for mood stabilization. -Continue antibiotics -neurology on board, appreciate assistance -Neurology started Keppra with possible underlying seizures. Also on steroids. DVT prophylaxis: SCDs Patient ready for discharge as per Neurology specialist Tried to call his Daughter Miss Svetlana Boogie to the phone number [phone], but no answer and left Message Expected Readmission the patient is frail and apply for Hospice care but not accepted by his Daughter he has Poor short term prognosis, has Severe and end stage COPD on Oxygen dependency. Discharge Planning Discharge to SNF Pt Condition on Discharge: Stable Discharge Disposition: Discharge to SNF Discharge Time: > 30 minutes Discharge Instructions DIET: Follow Instructions for: As Tolerated, No Restrictions Activities you can perform: Regular-No Restrictions Other Activity Instructions: Follow PT recommendations on Discharge. Kye Zaragoza MD Apr 26, 2017 16:36
== END 2017-04-26 18:44 | DRG 69 ==
LOC: NEPE 05:50 → NEDA 07:27 → NEPGCP 12:32 → NEPHCDU 04-12 05:06 → OBSVTOIN 04-13 10:53 → N05B 04-13 18:56
PROVIDERS: ADMIT Internal Medicine; ATTEND Internal Medicine
DX: G45.9 Transient cerebral ischemic attack, unspecified (principal); J96.01 Acute respiratory failure with hypoxia; J18.9 Pneumonia, unspecified organism; G93.40 Encephalopathy, unspecified; A04.7 Enterocolitis due to Clostridium difficile; F03.91 Unspecified dementia, unspecified severity, with behavioral disturbance; J44.0 Chronic obstructive pulmonary disease with (acute) lower respiratory infection; S00.83XA Contusion of other part of head, initial encounter; I08.2 Rheumatic disorders of both aortic and tricuspid valves; F32.9 Major depressive disorder, single episode, unspecified; R29.810 Facial weakness; Y93.9 Activity, unspecified; Y92.129 Unspecified place in nursing home as the place of occurrence of the external cause; Y99.9 Unspecified external cause status; W06.XXXA Fall from bed, initial encounter; Z86.73 Personal history of transient ischemic attack (TIA), and cerebral infarction without residual deficits; K21.9 Gastro-esophageal reflux disease without esophagitis; I10 Essential (primary) hypertension; F17.210 Nicotine dependence, cigarettes, uncomplicated; H35.30 Unspecified macular degeneration; E78.5 Hyperlipidemia, unspecified; H54.8 Legal blindness, as defined in USA; Z78.1 Physical restraint status; Z66 Do not resuscitate; Y95 Nosocomial condition; Z51.5 Encounter for palliative care; I71.4 Abdominal aortic aneurysm, without rupture; N28.89 Other specified disorders of kidney and ureter; E27.8 Other specified disorders of adrenal gland; R56.9 Unspecified convulsions; Z99.81 Dependence on supplemental oxygen; G89.4 Chronic pain syndrome
CPT/HCPCS: 36600; 70450; 70498; 70544; 70548; 70551; 70553; 71010; 71260; 72125; 74000; 74177; 76937; 80048; 80061; 80202; 81001; 82550; 82565; 82607; 82805; 82948; 83036; 83735; 83921; 84425; 84439; 84443; 84450; 84460; 84484; 85025; 85027; 85610; 85652; 85730; 86038; 86140; 86592; 87040; 87493; 87506; 93005; 93225; 93226; 93306; 94640; 94664; 94667; 94668; 95819; A9579; G0378; G8987-GP; G8988-GP; G8996-GN; G8997-GN; G8998-GN; J0456; J1940; J1953; J2543; J2930; J3370; J3475; J7030; J7040; J7050; Q9967